=== PATIENT | male | born 1955 | race Caucasian/White ===

== ENCOUNTER 2016-07-18 11:02 | Day surgery (SDC) | payer BC ==
[2016-07-18] MEDS ORDERED: Betamethasone Acetate/Betamethasone Sod Phosphate 30 MG/5 ML MDV ONE (11:54)
[2016-07-18] MEDS ORDERED: Ropivacaine 0.5% 5 MG/ML 30 ML SDV ONE (11:55)
[2016-07-18] MEDS ORDERED: Iopamidol 408 MG/ML 50 ML SDV ONE (11:55)
[2016-07-18] MEDS ORDERED: Lidocaine 2% 5 ML SDV ONE (11:55)
--- NOTE | 2016-07-18 15:12 | OR ---
SURGEON: Becca Lopez D.O. DATE OF PROCEDURE: 07/18/2016 OR STAFF PRESENT: 1. Fawn Mooney RN. 2. Soniya Oliver RN. RESIDENCY COORDINATOR: Katie Osorio. WOUND CLASSIFICATION: I. PREOPERATIVE DIAGNOSES: 1. Failed back surgery syndrome. 2. Chronic low back pain. POSTOPERATIVE DIAGNOSES: 1. Failed back surgery syndrome. 2. Chronic low back pain. PROCEDURE PERFORMED: 1. Caudal epidural steroid injection. 2. Fluoroscopic guidance for needle placement. 3. Local with oral Valium for sedation. SCREENING QUESTIONS: The patient answered "no" to all of the following questions: 1. Are you allergic to latex? 2. Do you have a bleeding disorder? 3. Do you have any current local or systemic infections? 4. Are you taking any anti-inflammatories or blood thinners? 5. Do you have any joint replacements, heart valve replacements, or a pacemaker? DESCRIPTION OF PROCEDURE: The patient had the procedure thoroughly explained including all possible risks, benefits and alternatives. Consent was signed in my clinic indicating understanding and willingness to proceed. The patient presented to [facility] and was escorted to the dressing room to disrobe and change into a hospital gown. Preoperative vital signs were taken and stable. The patient reported that Valium was taken prior to the procedure. The patient was brought back to the procedure room and placed in the prone position on the procedure room table. A pillow was placed under the hips in order to flatten the lumbar lordosis. The back was prepped with ChloraPrep and sterilely draped. All personnel in the operating room were dressed in appropriate attire including surgical scrubs, head and shoe covers. This was to ensure sterility while in the treatment room. During the time fluoroscopy was in use, all personnel in the operating room wore lead christiansen with thyroid collars. Sterile technique was used throughout the procedure. The patient was awake and conversant throughout the procedure. There was no evidence of infection at the site of needle insertion. Skeletal landmarks were identified under fluoroscopy for the caudal epidural. Skin was anesthetized with 2% lidocaine with a sterile 27-gauge 1.5 inch needle. Then a 20-gauge Tuohy epidural needle was placed in the epidural space with loss of resistance technique under fluoroscopic guidance. No heme, cerebrospinal fluid, or paresthesias were noted. Isovue-200 contrast dye was injected in 0.2 cubic centimeter increments and seen to outline the epidural space in both AP and lateral views. There was no intravascular flow pattern observed under live fluoroscopy. Then 12 milligrams of Celestone was slowly injected after negative aspiration. The patient tolerated the procedure well. Vital signs were stable during and after the procedure. The staff escorted the patient to the recovery area and the patient was released in stable condition after a brief stay in the recovery room monitored by the nurse. The patient was given both oral and written discharge and follow up instructions with recommendation to follow up given for 2-3 weeks. The patient voiced understanding including understanding of those signs and symptoms that would require emergency care. The patient knows how to contact the office if there are any additional problems or questions in the meantime. PREOPERATIVE PAIN: 6/10. POSTOPERATIVE PAIN: 0/10. FOLLOWUP: Followup in the Pain Clinic in 3 weeks. LING / SULTANA /[id number] BRETT
== END 2016-07-18 13:25 | disposition home or self-care (01) ==
LOC: MW.SDS 11:02
PROVIDERS: ATTEND Anesthesiology
DX: G89.29 Other chronic pain (principal); M54.5 Low back pain; M96.1 Postlaminectomy syndrome, not elsewhere classified; Z88.0 Allergy status to penicillin; Z88.1 Allergy status to other antibiotic agents; I10 Essential (primary) hypertension; E78.00 Pure hypercholesterolemia, unspecified; E78.5 Hyperlipidemia, unspecified; F41.9 Anxiety disorder, unspecified; Z79.899 Other long term (current) drug therapy; Z79.82 Long term (current) use of aspirin; Z98.890 Other specified postprocedural states; Z87.891 Personal history of nicotine dependence
CPT/HCPCS: 62323; J0702; Q9966; J2795

== ENCOUNTER → 2016-08-08 | Outpatient (CLI) | payer BC | LOC: MW.CHPM 09:47 | PROVIDERS: ATTEND Anesthesiology | DX: Z51.81 Encounter for therapeutic drug level monitoring (principal); Z79.891 Long term (current) use of opiate analgesic | CPT/HCPCS: 80305 ==

== ENCOUNTER → 2016-08-29 | Outpatient (CLI) | payer BC ==
--- NOTE | 2016-08-29 11:55 | CR ---
EXAMINATION: Lumbar spine HISTORY: Low back pain COMPARISON: MRI dated 05/08/2013 TECHNIQUE: AP, lateral, flexion and extension. FINDINGS: Bilateral posterior fusion hardware noted at L5-S1. The lumbar spinal alignment is otherwi se normal. The vertebral body heights and disc spaces appear well-maintained. There is no fracture o r dislocation. Bone mineralization appears normal. The SI joints are symmetric. Alignment and range of motion appear near normal with flexion and extension. IMPRESSION: Postsurgical changes noted within the lower lumbar spine without acute findings.
== END ==
LOC: MW.DI 08:50
PROVIDERS: ATTEND Neurological Surgery
DX: M54.5 Low back pain (principal); Z98.890 Other specified postprocedural states
CPT/HCPCS: 72110; 72110-26

== ENCOUNTER → 2016-08-29 | Outpatient (CLI) | payer BC ==
[~2016-08-29] MED LIST: Iopamidol 408 MG/ML 20 ML SDV IV STA
--- NOTE | 2016-08-29 12:04 | CR ---
EXAMINATION: Lumbar myelogram HISTORY: Low back pain COMPARISON: Radiographs from the same day TECHNIQUE: The procedure, risks, and benefits were discussed with the patient. Risks included bleedi ng, infection, seizure, and headache. Consent was obtained. Patient was placed prone on the fluorosc opic table. The lower back was sterilely prepped and draped. 1% lidocaine was administered for local anesthesia. Using fluoroscopic guidance a 22-gauge Sprott needle was advanced at L2-L3 and tail CSF return was noted. 12 mL of Isovue-200 M was injected. Contrast was noted within the thecal sac. FINDINGS: There is mild narrowing of the thecal sac at L3-L4 and L4-L5. Please see CT report for ful l findings. IMPRESSION: Successful lumbar myelogram.
--- NOTE | 2016-08-29 14:39 | CT ---
EXAMINATION: CT lumbar myelogram HISTORY: Pain COMPARISON: MRI dated 05/08/2013 TECHNIQUE: Axial CT images obtained through the lumbar spine following the intrathecal administratio n of Isovue 200 M. Coronal and sagittal reconstructions obtained. FINDINGS: The lumbar spinal alignment is normal. The vertebral body heights appear well maintained. Mild disc space narrowing is noted at L5-S1 with bilateral posterior fusion. Early osseous interbody bridging is noted. Small diffuse anterior extradural defects are noted at L3-L4 and L4-L5. Mild to moderate spinal canal stenosis is noted at L2-L3, L3-L4, L4-L5 which appears predominantly secondary to facet and ligamentum flavum hypertrophy. The SI joints are symmetric. No fracture or acute osseo us abnormality. Bone mineralization appears normal. The visualized retroperitoneal structures appear normal. IMPRESSION: 1. Bilateral posterior fusion at L5-S1. 2. Multilevel degenerative changes noted within the lumbar spine most prominent from L2 to L5 result ing in [id number] spinal canal stenosis predominantly secondary to ligamentum flavum and facet hypertrophy.
== END | disposition home or self-care (01) ==
LOC: MW.DI 08:44
PROVIDERS: ATTEND Anesthesiology
DX: M96.1 Postlaminectomy syndrome, not elsewhere classified (principal); M51.9 Unspecified thoracic, thoracolumbar and lumbosacral intervertebral disc disorder; M54.17 Radiculopathy, lumbosacral region; G89.29 Other chronic pain; M54.5 Low back pain; M51.36 Other intervertebral disc degeneration, lumbar region; M48.06 Spinal stenosis, lumbar region; Z98.890 Other specified postprocedural states
CPT/HCPCS: 62284; 72110; 72132; 72265; Q9966

== ENCOUNTER → 2016-09-14 | Outpatient (CLI) | payer BC ==
--- NOTE | 2016-09-14 14:48 | XA ---
Exam Date: 09/14/16 Patient's Age: 61 HEIGHT: 73.0 in WEIGHT: 205.0 lbs INDICATIONS: Back Pain FRACTURES: Adult Fractures Only, Back Surgery TREATMENTS: Methotrexate ASSESSMENT: The BMD measured at Femur Neck Mean is 0.690 g/cm2 with a T-score of -2.9 is low. Fracture risk is high. A followup DXA test is recommended in one year to monitor response to therapy. The BMD measured at Femur Troch Mean is 0.614 g/cm2 with a T-score of -2.9 is low. Fracture risk is high. A followup DXA test is recommended in one year to monitor response to therapy. RESULTS: Site Region Age Classification T-Score BMD AP Spine L1-L4 60.6 N/A -1.8 1.012 g/cm2 Dual Femur Neck Mean 60.6 N/A -2.9 0.690 g/cm2 Dual Femur Troch Mean 60.6 N/A -2.9 0.614 g/cm2 Dual Femur Total Mean 60.6 N/A -2.8 0.705 g/cm2 LT Forearm Radius 33% 60.6 N/A -0.6 0.944 g/cm2 World Health Organization - Criteria for post-menopausal, women: Normal: T-Score at or above -1 SD Osteopenia: T-Score between -1 and -2.5 SD Osteoporosis: T-Score at or below -2.5 SD RECOMMENDATION: Pharmacologic treatment recommendations & Initiate pharmacologic treatment: - In those with hip or vertebral (clinical or asymptomatic) fractures - In those with T -scores <-2.5 at the femoral neck, total hip, or lumbar spine by DXA - In postmenopausal women and men age 50 and older with low bone mass (T-score between -1.0 and -2.5, osteopenia) at the femoral neck, total hip, or lumbar spine by DXA and a 10-year hip fracture probability >3 % or a 10-year major osteoporosis-related fracture probability >20% based on the [place]-adapted WHO absolute fracture risk model (Fracture Risk Algorithm (FRAX); www. NOF.org and www.shef.ac.uk/FRAX) FOLLOW UP: People with diagnosed cases of osteoporosis or at high risk for fracture should have regular bone mineral density tests. For patients eligible for Medicare, routine testing is allowed once every 2 years. The testing frequency can be increased to 1 year for patients who have rapidly progressing disease, those who are reviewing or discontinuing medial therapy to restore bone mass, or have additional risk factors. People with diagnosed cases of osteoporosis or osteopenia should be regularly tested for bone mineral density. For patient eligible for Medicare, routine testing is allowed once every 2 years. The testing frequency can be increased to 1 year for patients who have rapidly progressing disease, or for those who are receiving medial therapy to restore bone mass. [facility] -- SANDRA Rosario [phone] - FAX: [phone] BRETT
== END ==
LOC: MW.DI 09:22
PROVIDERS: ATTEND Neurological Surgery
DX: M48.06 Spinal stenosis, lumbar region (principal)
CPT/HCPCS: 77080; 77080-26

== ENCOUNTER 2017-06-15 08:40 | Emergency (ER) | payer OTHER, BC ==
--- NOTE | 2017-06-15 09:18 | EDM.PDOC ---
ED HPI GENERAL MEDICAL PROBLEM - General Chief Complaint: Upper Extremity Injury/Pain Stated Complaint: LEFT ARM PAIN Time Seen by Provider: 06/15/17 09:07 - History of Present Illness INITIAL COMMENTS - FREE TEXT/NARRATIVE: HISTORY AND PHYSICAL: History of present illness: Patient is a 62-year-old white male presents status post fall which injured his left upper extremity has pain in his right shoulder and humerus. He denies any head or neck pain or trauma or other concern is strictly mechanical fall he denies chest pain palpitations nausea vomiting neurological symptoms or other concern Review of systems: As per history of present illness and below otherwise all systems reviewed and negative. Past medical history: As per history of present illness and as reviewed below otherwise noncontributory. Surgical history: As per history of present illness and as reviewed below otherwise noncontributory. Social history: No reported history of drug or alcohol abuse. Family history: As per history of present illness and as reviewed below otherwise noncontributory. Physical exam: HEENT: Atraumatic, normocephalic, pupils reactive, negative for conjunctival pallor or scleral icterus, mucous membranes moist, throat clear, neck supple, nontender, trachea midline. Lungs: Clear to auscultation, breath sounds equal bilaterally, chest nontender. Heart: S1S2, regular, negative for clicks, rubs, or JVD. Abdomen: Soft, nondistended, nontender. Negative for masses or hepatosplenomegaly. Negative for costovertebral tenderness. Pelvis: Stable nontender. Genitourinary: Deferred. Rectal: Deferred. Extremities: Patient has tenderness in the region of his proximal left humerus is no gross deformity he has limited range of motion secondary to pain CMS in neurovascular exam is unremarkable Neuro: Awake, alert, oriented. Cranial nerves II through XII unremarkable. Cerebellum unremarkable. Motor and sensory unremarkable throughout. Exam nonfocal. Diagnostics: X-ray left shoulder/humerus Therapeutics: to Be determined Impression: #1 observation status post fall #2 acute injury left upper extremity Definitive disposition and diagnosis as appropriate pending reevaluation and review of above. Left Upper Arm Pain Score (Numeric/FACES): 6 - Related Data Allergies Allergy/AdvReac Type Severity Reaction Status Date / Time Penicillins Allergy Mild Hives Verified 03/16/16 12:09 vancomycin Allergy Rash Verified 03/25/16 18:35 Home Meds: Home Meds Ascorbic Acid/Bioflavonoids [Vit C-Bioflavonoids SA] 1,000 mg PO DAILY 03/16/16 [History] Aspirin [Adult Low Dose Aspirin EC] 1 tab PO DAILY 03/16/16 [History] ClonazePAM [KlonoPIN] 1.5 tab PO BEDTIME MDD 2 mg 03/16/16 [History] Fish Oil/DHA/EPA [Fish Oil 1,200 MG] 1 cap PO BID 03/16/16 [History] Folic Acid 1 cap PO BID 03/16/16 [History] Lisinopril 1 tab PO DAILY 03/16/16 [History] Melatonin/Pyridoxine HCl (B6) [Melatonin 10 mg Tablet] 2 tab PO BEDTIME [History] Pravastatin Sodium [Pravachol] 1 tab PO BEDTIME 03/16/16 [History] Vit D3 & K/Berberine HCl/Hops [Ostera] 600 intnl unit PO TID 03/16/16 [History] Vit E/Cu/Krystin/Zinc/Pygeum/Saw P [Prostamen Softgel] 400 intnl unit PO TID [History] amLODIPine Besylate [Amlodipine Besylate] 1 tab PO DAILY 03/16/16 [History] traMADol HCl [Tramadol HCl] 1 - 2 tab PO Q6H PRN 03/16/16 [History] Acetaminophen/oxyCODONE [Percocet 325-5 MG] 2 tab PO Q4H PRN #60 tablet [Rx] ClonazePAM [KlonoPIN] 1 mg PO BEDTIME tablet 03/19/16 [Rx] Lisinopril [Prinivil] 20 mg PO DAILY tablet 03/19/16 [Rx] Polyethylene Glycol 3350 [MiraLAX] 17 gm PO DAILY #30 packet 03/19/16 [Rx] diphenhydrAMINE HCl [Sleep Aid] 2 tab PO BEDTIME #30 capsule 03/19/16 [Rx] Hydrocodone/Acetaminophen [Hydrocodon-Acetaminophen 5-325] 06/15/17 [History] Methotrexate Sodium/PF [Methotrexate 1 gm Vial] 06/15/17 [History] Past Medical History HEENT History: Reports: Hard of Hearing, Other (See Below) Other HEENT History: wears glasses, has bilateral hearing aides; chronic dry sinuses Cardiovascular History: Reports: Blood Clots/VTE/DVT, High Cholesterol, Hypertension Other Cardiovascular History: hx of blood clot left calf after hip surgery 30 years ago Respiratory History: Reports: None Gastrointestinal History: Reports: None Genitourinary History: Reports: None Musculoskeletal History: Reports: Back Pain, Chronic, Fracture, RA, Other (See Below) Other Musculoskeletal History: hx of fx left femur, left hip, left foot, both hands Neurological History: Reports: Other (See Below) Other Neuro History: degenerative disc disease, chronic back pain Psychiatric History: Reports: Anxiety Endocrine/Metabolic History: Reports: None Hematologic History: Reports: None Immunologic History: Reports: None Oncologic (Cancer) History: Reports: None Dermatologic History: Reports: Psoriasis - Infectious Disease History Infectious Disease History: Reports: Measles, MRSA, Mumps - Past Surgical History Male Surgical History: Reports: Other (See Below) Neurological Surgical History: Reports: Spinal Fusion Social & Family History - Family History Respiratory: Reports: Asthma, COPD Endocrine/Metabolic: Reports: Diabetes, Type I Oncologic: Reports: Colon - Tobacco Use Smoking Status *Q: Former Smoker - Caffeine Use Caffeine Use: Reports: Coffee, Soda - Recreational Drug Use Recreational Drug Use: No Drug Use in Last 12 Months: No Review of Systems - Review of Systems Review Of Systems: ROS reveals no pertinent complaints other than HPI. ED EXAM, GENERAL - Physical Exam Exam: See Below (See dictation) Course - Vital Signs Text/Narrative:: I discussed case with Dr. Small orthopedic surgery at [facility] I reviewed radiographic findings including the olecranon fracture and a comminuted midshaft humerus fracture Dr. Small agreed with the concerns of a floating elbow and that more prompt follow-up with him was appropriate he states he'll see him on Sunday a sugar tong and posterior mold was applied and check status post application by myself with good stability and normal neurovascular exam. Impression remains comminuted midshaft humerus fracture and left olecranon fracture patient is to keep scheduled appointment he will be prescribed hydrocodone for pain he is to return as needed as discussed for any neurovascular or other symptoms including pain. Last Recorded V/S: Last Vital Signs Temp 36.3 C 06/15/17 09:15 Pulse 80 06/15/17 09:15 Resp 16 06/15/17 09:15 BP 140/82 06/15/17 09:15 Pulse Ox 94 L 06/15/17 09:15 Departure - Departure Time of Disposition: 11:11 Disposition: Home, Self-Care 01 Condition: Good Clinical Impression: Humerus shaft fracture, Olecranon fracture - Discharge Information Referrals: Akbar Wallace MD [Primary Care Provider] - Forms: ED Department Discharge Additional Instructions: The following information is given to patients seen in the emergency department who are being discharged to home. This information is to outline your options for follow-up care. We provide all patients seen in our emergency department with a follow-up referral. The need for follow-up, as well as the timing and circumstances, are variable depending upon the specifics of your emergency department visit. If you don't have a primary care physician on staff, we will provide you with a referral. We always advise you to contact your personal physician following an emergency department visit to inform them of the circumstance of the visit and for follow-up with them and/or the need for any referrals to a consulting specialist. The emergency department will also refer you to a specialist when appropriate. This referral assures that you have the opportunity for followup care with a specialist. All of these measure are taken in an effort to provide you with optimal care, which includes your followup. Under all circumstances we always encourage you to contact your private physician who remains a resource for coordinating your care. When calling for followup care, please make the office aware that this follow-up is from your recent emergency room visit. If for any reason you are refused follow-up, please contact the [facility] emergency department at and asked to speak to the emergency department charge nurse. Follow-up with orthopedic surgery Dr. Small [facility] hydrocodone as prescribed splint as directed sling as directed and return as needed as discussed
[2017-06-15 09:19] VITALS: BP 140/82
--- NOTE | 2017-06-15 09:55 | CR ---
EXAMINATION: Left shoulder and left humerus HISTORY: Pain COMPARISON: None TECHNIQUE: 2 views of the left shoulder and 2 views of the left humerus. FINDINGS: There is mildly comminuted and displaced angulated mid left humerus fracture identified at the level of the deltoid tuberosity. Mild degenerative changes noted within the glenohumeral and acromioclavicu lar joints. There is a mildly displaced oblique fracture through the olecranon of the left ulna extending to the trochlear notch. Underlying joint effusion. Bone mineralization is otherwise normal. IMPRESSION: 1. Angulated mildly comminuted and displaced mid left humerus fracture. 2. Minimally displaced left olecranon fracture.
== END 2017-06-15 11:40 | disposition home or self-care (01) ==
LOC: MW.ED 08:40
DX: S42.352A Displaced comminuted fracture of shaft of humerus, left arm, initial encounter for closed fracture (principal); S52.022A Displaced fracture of olecranon process without intraarticular extension of left ulna, initial encounter for closed fracture; I10 Essential (primary) hypertension; E78.00 Pure hypercholesterolemia, unspecified; F41.9 Anxiety disorder, unspecified; Z87.891 Personal history of nicotine dependence; Z79.82 Long term (current) use of aspirin; Z79.899 Other long term (current) drug therapy; Z88.0 Allergy status to penicillin; Z88.1 Allergy status to other antibiotic agents; W19.XXXA Unspecified fall, initial encounter
CPT/HCPCS: 29105; 73030-26-LT; 73030-LT; 73060-26-LT; 73060-LT; 99283

== ENCOUNTER 2019-03-30 08:49 | Inpatient (IN) | payer OTHER, BC ==
--- NOTE | 2019-03-30 08:58 | EDM.PDOC ---
ED HPI GENERAL MEDICAL PROBLEM - General Chief Complaint: Lower Extremity Injury/Pain Stated Complaint: POSSIBLE BROKEN LEFT HIP Time Seen by Provider: 03/30/19 08:56 - History of Present Illness INITIAL COMMENTS - FREE TEXT/NARRATIVE: HISTORY AND PHYSICAL: History of present illness: Patient 64-year-old white male presents status post fall which injured his left hip he denies any other pain or trauma he denies head or neck pain or trauma denies chest pain shortness of breath states he slipped on the ice and this was strictly a mechanical fall. Review of systems: As per history of present illness and below otherwise all systems reviewed and negative. Past medical history: As per history of present illness and as reviewed below otherwise noncontributory. Surgical history: As per history of present illness and as reviewed below otherwise noncontributory. Social history: No reported history of drug or alcohol abuse. Family history: As per history of present illness and as reviewed below otherwise noncontributory. Physical exam: HEENT: Atraumatic, normocephalic, pupils reactive, negative for conjunctival pallor or scleral icterus, mucous membranes moist, throat clear, neck supple, nontender, trachea midline. Lungs: Clear to auscultation, breath sounds equal bilaterally, chest nontender. Heart: S1S2, regular, negative for clicks, rubs, or JVD. Abdomen: Soft, nondistended, nontender. Negative for masses or hepatosplenomegaly. Negative for costovertebral tenderness. Pelvis: Stable Genitourinary: Deferred. Rectal: Deferred. Extremities: Patient has tenderness palpation of his left hip is limited range of motion secondary to pain pelvis is grossly stable Neuro: Awake, alert, oriented. Cranial nerves II through XII unremarkable. Cerebellum unremarkable. Motor and sensory unremarkable throughout. Exam nonfocal. Diagnostics: X-ray pelvis with left hip Therapeutics: To be determined Impression: #1 observation status post fall with acute left hip injury Definitive disposition and diagnosis as appropriate pending reevaluation and review of above. Left Hip Pain Score (Numeric/FACES): 9 - Related Data Allergies Allergy/AdvReac Type Severity Reaction Status Date / Time Penicillins Allergy Rash Verified 03/30/19 08:51 Review of Systems - Review of Systems Review Of Systems: Comprehensive ROS is negative, except as noted in HPI. ED EXAM, GENERAL - Physical Exam Exam: See Below (See dictation) Course - Vital Signs Last Recorded V/S: Last Vital Signs Temp 35.9 C 03/30/19 08:51 Pulse 97 03/30/19 08:51 Resp 17 03/30/19 08:51 BP 152/75 H 03/30/19 08:51 Pulse Ox 98 03/30/19 08:51 - Orders/Labs/Meds Orders: Active Orders 24 hr Category Date Time Status EKG 12 Lead [EKG Documentation Completion] [RC] STAT Care 03/30/19 10:02 Active CBC WITH AUTO DIFF [HEME] Stat Lab 03/30/19 10:02 Ordered COMPREHENSIVE METABOLIC PN,CMP [CHEM] Stat Lab 03/30/19 10:02 Ordered INR,PT,PROTHROMBIN TIME [COAG] Stat Lab 03/30/19 10:02 Ordered Sodium Chloride 0.9% [Saline Flush] Med 03/30/19 09:05 Active 10 ml FLUSH ASDIRECTED PRN Sodium Chloride 0.9% [Saline Flush] Med 03/30/19 09:05 Active 2.5 ml FLUSH ASDIRECTED PRN Saline Lock Insert [OM.PC] Stat Oth 03/30/19 09:05 Ordered Medication Orders Sodium Chloride (Saline Flush) 10 ml FLUSH ASDIRECTED PRN PRN Reason: Keep Vein Open Last Admin: 03/30/19 09:10 Dose: 10 ml Sodium Chloride (Saline Flush) 2.5 ml FLUSH ASDIRECTED PRN PRN Reason: Keep Vein Open Last Admin: 03/30/19 09:10 Dose: 2.5 ml Meds: Medications Generic Name Dose Route Start Last Admin Trade Name Freq PRN Reason Stop Dose Admin Sodium Chloride 10 ml 03/30/19 09:05 03/30/19 09:10 Saline Flush FLUSH 10 ml ASDIRECTED PRN Administration Keep Vein Open Sodium Chloride 2.5 ml 03/30/19 09:05 03/30/19 09:10 Saline Flush FLUSH 2.5 ml ASDIRECTED PRN Administration Keep Vein Open Discontinued Medications Generic Name Dose Route Start Last Admin Trade Name Freq PRN Reason Stop Dose Admin Morphine Sulfate 4 mg 03/30/19 09:05 03/30/19 09:09 Morphine IVPUSH 03/30/19 09:06 4 mg ONETIME ONE Administration Ondansetron HCl 4 mg 03/30/19 09:04 03/30/19 09:09 Zofran IVPUSH 03/30/19 09:05 4 mg ONETIME ONE Administration Departure - Departure Time of Disposition: 10:04 Disposition: Admitted As Inpatient 67 Condition: Good Clinical Impression: Hip fracture, Hip fracture - Discharge Information Forms: ED Department Discharge - My Orders Last 24 Hours: My Active Orders 03/30/19 09:05 Sodium Chloride 0.9% [Saline Flush] 10 ml FLUSH ASDIRECTED PRN Sodium Chloride 0.9% [Saline Flush] 2.5 ml FLUSH ASDIRECTED PRN Saline Lock Insert [OM.PC] Stat 03/30/19 10:02 EKG 12 Lead [EKG Documentation Completion] [RC] STAT CBC WITH AUTO DIFF [HEME] Stat COMPREHENSIVE METABOLIC PN,CMP [CHEM] Stat INR,PT,PROTHROMBIN TIME [COAG] Stat - Assessment/Plan Last 24 Hours: My Active Orders 03/30/19 09:05 Sodium Chloride 0.9% [Saline Flush] 10 ml FLUSH ASDIRECTED PRN Sodium Chloride 0.9% [Saline Flush] 2.5 ml FLUSH ASDIRECTED PRN Saline Lock Insert [OM.PC] Stat 03/30/19 10:02 EKG 12 Lead [EKG Documentation Completion] [RC] STAT CBC WITH AUTO DIFF [HEME] Stat COMPREHENSIVE METABOLIC PN,CMP [CHEM] Stat INR,PT,PROTHROMBIN TIME [COAG] Stat
[2019-03-30] MEDS ORDERED: Ondansetron 4 MG/2 ML SDV IVPUSH ONE (09:04)
[2019-03-30] MEDS ORDERED: Sodium Chloride 0.9% 2.5 ML Syringe FLUSH PRN (09:05)
[2019-03-30] MEDS ORDERED: Morphine 4 MG/ML Syringe IVPUSH ONE (09:05)
[2019-03-30] MEDS ORDERED: Sodium Chloride 0.9% 10 ML Syringe FLUSH PRN (09:05)
--- NOTE | 2019-03-30 09:31 | CR ---
INDICATION: Fall. Left hip pain Technique : AP pelvis and two views left hip Finding : Mild to moderately displaced and angulated acute fracture involving the left distal femoral neck and intertrochanteric proximal femur with extension of the fracture into the subtrochanteric left proximal femoral diaphysis laterally. Moderately prominent soft tissue swelling left lateral hip and lower pelvis. No other evidence for fracture or dislocation pelvis or hips. Amrit and pedicle screw fixation posteriorly from L5-S1. Mild degenerative change left hip. Degenerative and hypertrophic changes involving the lower lumbar spine. Small benign area of sclerosis or increased density projected over right femur. Remainder negative. Dictated by Miguel Parra MD @ Mar 30 2019 9:26AM Signed by Dr. Miguel Parra @ Mar 30 2019 9:28AM
[2019-03-30] MEDS ORDERED: HYDROmorphone 1 MG/ML Syringe IV ONE (10:05)
[2019-03-30 10:48] LABS: BLOOD UREA NITROGEN,BUN 17 mg/dL (7.0-18.0); CARBON DIOXIDE,CO2 29.6 mmol/L (21.0-32.0); CHLORIDE,CL 103 mmol/L (98-107); GLUCOSE RANDOM 115 mg/dL (74-106); POTASSIUM,K 3.2 mmol/L (3.5-5.1); SODIUM,NA 140 mmol/L (136-148)
[2019-03-30] MEDS ORDERED: Acetaminophen/HYDROcodone 325-5 MG Tab PO PRN (11:23)
[2019-03-30] MEDS ORDERED: Tranexamic Acid 2,000 MG in Sodium Chloride 0.9% 100 ML IV ONE (11:28)
[2019-03-30] MEDS ORDERED: Ondansetron 4 MG Tab PO PRN (11:28)
[2019-03-30] MEDS ORDERED: Docusate Sodium 100 MG Cap PO PRN (11:28)
[2019-03-30] MEDS ORDERED: Ketorolac 15 MG/ML SDV IVPUSH SCH (11:30)
[2019-03-30] MEDS ORDERED: Scopolamine 1.5 MG Transdermal Patch TRDERM SCH (11:30)
[2019-03-30] MEDS ORDERED: Famotidine 20 MG/2 ML SDV IVPUSH SCH (11:30)
[2019-03-30] MEDS ORDERED: Clindamycin Phosphate in D5W 600 MG in Premix Bag 1 BAG IV SCH ×2 (11:30)
[2019-03-30] MEDS ORDERED: Ropivacaine 49.25 ML, Ketorolac 30 MG, EPINEPHrine 0.5 MG in Sodium Chloride 0.9% 23.45 ML INJECT SCH (11:30)
[2019-03-30] MEDS ORDERED: Famotidine 40 MG in Sodium Chloride 0.9% 6 ML IV ONE (11:45)
[2019-03-30] MEDS ORDERED: HYDROmorphone 1 MG/ML Syringe IVPUSH ONE ×2 (12:09→14:04)
--- NOTE | 2019-03-30 12:57 | CR ---
Indication: Preop surgery. Technique: AP view of the chest. Comparison: None Findings: Heart is borderline in size. The lungs are clear. No infiltrate, pleural effusion, or pneumothorax is identified. Impression: Borderline cardiomegaly Dictated by Gita Reyes MD @ Mar 30 2019 12:54PM Signed by Dr. Gita Reyes @ Mar 30 2019 12:55PM
--- NOTE | 2019-03-30 13:14 | PCM.HP.2 ---
H&P History of Present Illness - General Date of Service: 03/30/19 Admit Problem/Dx: Admission Diagnosis/Problem Admission Diagnosis/Problem Hip fracture requiring operative repair Source of Information: Patient, Provider, RN History Limitations: Reports: No Limitations - History of Present Illness Onset of Symptoms: Reports: Today, Sudden Symptom Onset Date: 03/30/19 Duration of Symptoms: Reports: Hour(s): Location: Reports: Lower Extremity, Left Quality: Reports: Ache, Stabbing, Throbbing Severity: Moderate Improves with: Reports: None, Immobilization Worsens with: Reports: None, Movement Associated Symptoms: Reports: No Other Symptoms Left Hip Pain Score (Numeric/FACES): 9 - Related Data Allergies/Adverse Reactions: Allergies Allergy/AdvReac Type Severity Reaction Status Date / Time Penicillins Allergy Rash Verified 03/30/19 08:51 Past Medical History Cardiovascular History: Reports: High Cholesterol, Hypertension - Infectious Disease History Infectious Disease History: Reports: None - Past Surgical History GI Surgical History: Reports: Hernia, Abdominal Other Musculoskeletal Surgeries/Procedures:: Back surgery. Left hip surgery Social & Family History - Family History Family Medical History: Noncontributory - Tobacco Use Smoking Status *Q: Never Smoker - Caffeine Use Caffeine Use: Reports: None - Recreational Drug Use Recreational Drug Use: No H&P Review of Systems - Review of Systems: Review Of Systems: See Below General: Reports: No Symptoms HEENT: Reports: No Symptoms Pulmonary: Reports: No Symptoms Cardiovascular: Reports: No Symptoms Gastrointestinal: Reports: No Symptoms Genitourinary: Reports: No Symptoms Musculoskeletal: Reports: Leg Pain, Joint Pain, Joint Swelling, Muscle Pain Skin: Reports: No Symptoms Psychiatric: Reports: No Symptoms Neurological: Reports: No Symptoms Hematologic/Lymphatic: Reports: No Symptoms Immunologic: Reports: No Symptoms Exam - Exam Exam: See Below - Vital Signs Vital Signs: Last Vital Signs Temp 35.9 C 03/30/19 08:51 Pulse 98 03/30/19 12:28 Resp 16 03/30/19 12:28 BP 125/83 03/30/19 12:28 Pulse Ox 94 L 03/30/19 12:28 Weight: 99.79 kg - Exam General: Alert, Oriented, Cooperative, Mild Distress HEENT: Conjunctiva Clear, EOMI, Hearing Intact, Mucosa Moist & [place], Posterior Pharynx Clear, Pupils Equal, Pupils Reactive Neck: Supple, Trachea Midline Lungs: Clear to Auscultation, Normal Respiratory Effort Cardiovascular: Regular Rate, Regular Rhythm GI/Abdominal Exam: No Distention Extremities: Slow Capillary Refill, Leg Pain Peripheral Pulses: 2+: Dorsalis Pedis (L) Skin: Warm, Dry, Intact Neurological: Cranial Nerves Intact Neuro Extensive - Mental Status: Alert, Oriented x3, Normal Mood/Affect, Normal Cognition, Memory Intact Neuro Extensive - Motor, Sensory, Reflexes: CN II-XII Intact Psychiatric: Alert, Normal Affect, Normal Mood - Patient Data Lab Results Last 24 hrs: Laboratory Results - last 24 hr 03/30/19 03/30/19 03/30/19 Range/Units 10:15 10:15 10:15 WBC 13.12 H (4.0-11.0) K/uL RBC 4.54 (4.50-5.90) M/uL Hgb 14.6 (13.0-17.0) g/dL Hct 41.4 (38.0-50.0) % MCV 91.2 (80.0-98.0) fL MCH 32.2 H (27.0-32.0) pg MCHC 35.3 (31.0-37.0) g/dL RDW Std Deviation 48.4 (28.0-62.0) fl RDW Coeff of Kalyn 15 (11.0-15.0) % Plt Count 262 (150-400) K/uL MPV 9.50 (7.40-12.00) fL Neut % (Auto) 80.6 H (48.0-80.0) % Lymph % (Auto) 8.7 L (16.0-40.0) % [place] % (Auto) 8.4 (0.0-15.0) % Eos % (Auto) 1.8 (0.0-7.0) % Baso % (Auto) 0.5 (0.0-1.5) % Neut # (Auto) 10.6 H (1.4-5.7) K/uL Lymph # (Auto) 1.1 (0.6-2.4) K/uL [place] # (Auto) 1.1 H (0.0-0.8) K/uL Eos # (Auto) 0.2 (0.0-0.7) K/uL Baso # (Auto) 0.1 (0.0-0.1) K/uL Nucleated RBC % 0.0 /100WBC Nucleated RBCs # 0 K/uL INR 0.97 Sodium 140 (136-148) mmol/L Potassium 3.2 L (3.5-5.1) mmol/L Chloride 103 (98-107) mmol/L Carbon Dioxide 29.6 (21.0-32.0) mmol/L BUN 17 (7.0-18.0) mg/dL Creatinine 1.0 (0.8-1.3) mg/dL Est Cr Clr Drug Dosing 85.45 mL/min Estimated GFR (MDRD) > 60.0 ml/min Glucose 115 H (74-106) mg/dL Calcium 9.2 (8.5-10.1) mg/dL Total Bilirubin 0.4 (0.2-1.0) mg/dL AST 24 (15-37) IU/L ALT 42 (14-63) IU/L Alkaline Phosphatase 61 (46-116) U/L Total Protein 7.3 (6.4-8.2) g/dL Albumin 4.1 (3.4-5.0) g/dL Globulin 3.2 (2.6-4.0) g/dL Albumin/Globulin Ratio 1.3 (0.9-1.6) Result Diagrams: 03/30/19 10:15 03/30/19 10:15 - Problem List (1) Fracture, intertrochanteric, left femur SNOMED Code(s): 908927825 ICD Code: S72.142A - DISPLACED INTERTROCHANTERIC FRACTURE OF LEFT FEMUR, INIT Status: Acute Current Visit: Yes Qualifiers: Encounter type: initial encounter Fracture type: closed Fracture alignment: displaced Qualified Code(s): S72.142A - Displaced intertrochanteric fracture of left femur, initial encounter for closed fracture Problem List Initiated/Reviewed/Updated: Yes Orders Last 24hrs: Active Orders 24 hr Category Date Time Status Patient Status [ADT] Stat ADT 03/30/19 10:06 Active Antiembolic Devices [RC] PER UNIT ROUTINE Care 03/30/19 11:25 Active EKG 12 Lead [EKG Documentation Completion] [RC] STAT Care 03/30/19 10:02 Active Insert Urinary Catheter [OM.PC] Q24H Care 03/30/19 11:30 Ordered RT Incentive Spirometry [RC] Q1HWA Care 03/30/19 11:23 Active Urinary Catheter Assessment [RC] ASDIRECTED Care 03/30/19 11:26 Active Nothing Per Oral Diet [DIET] Diet 03/30/19 Lunch Active Nothing per Oral After Midnight Diet [DIET] Diet 03/30/19 Dinner Active TYPE AND SCREEN [BBK] Routine Lab 03/30/19 11:40 Received Acetaminophen/HYDROcodone [[place] 325-5 MG] Med 03/30/19 11:23 Active 1 - 2 tab PO Q4H PRN Clindamycin Phosphate in D5W [Cleocin in D5W] 600 mg Med 03/30/19 11:30 Active Premix Bag 1 bag IV ONCALL Docusate Sodium [Colace] Med 03/30/19 11:28 Active 100 mg PO BID PRN Ketorolac [Toradol] Med 03/30/19 11:30 Active 15 mg IVPUSH ONARRIVE Lactated Ringers [Ringers, Lactated] 1,000 ml Med 03/30/19 23:00 Active IV ASDIRECTED Ondansetron [Zofran] Med 03/30/19 11:28 Active 4 mg PO Q6H PRN Scopolamine [Transderm-Scop] Med 03/30/19 11:30 Active 1.5 mg TRDERM ONARRIVE Sodium Chloride 0.9% [Saline Flush] Med 03/30/19 09:05 Active 10 ml FLUSH ASDIRECTED PRN Sodium Chloride 0.9% [Saline Flush] Med 03/30/19 09:05 Active 2.5 ml FLUSH ASDIRECTED PRN Antiembolic Hose [OM.PC] Routine Oth 03/30/19 11:25 Ordered Obtain Home Medication List [OM.PC] Routine Oth 03/30/19 11:25 Ordered Saline Lock Insert [OM.PC] Stat Oth 03/30/19 09:05 Ordered Sequential Compression Device [OM.PC] Routine Oth 03/30/19 11:25 Ordered Code Status [Resuscitation Status] Routine Resus Stat 03/30/19 11:23 Ordered Medication Orders Hydrocodone Bitart/Acetaminophen ([place] 325-5 Mg) 1 - 2 tab PO Q4H PRN PRN Reason: Pain Docusate Sodium (Colace) 100 mg PO BID PRN PRN Reason: Constipation Clindamycin Phosphate 600 mg/ (Premix) 50 mls @ 92.593 mls/hr IV ONCALL [place] Lactated Ringer's (Ringers, Lactated) 1,000 mls @ 75 mls/hr IV ASDIRECTED [place] Ketorolac Tromethamine (Toradol) 15 mg IVPUSH ONARRIVE [place] Ondansetron HCl (Zofran) 4 mg PO Q6H PRN PRN Reason: Nausea/Vomiting Scopolamine (Transderm-Scop) 1.5 mg TRDERM ONARRIVE [facility] Sodium Chloride (Saline Flush) 10 ml FLUSH ASDIRECTED PRN PRN Reason: Keep Vein Open Last Admin: 03/30/19 09:10 Dose: 10 ml Sodium Chloride (Saline Flush) 2.5 ml FLUSH ASDIRECTED PRN PRN Reason: Keep Vein Open Last Admin: 03/30/19 09:10 Dose: 2.5 ml Assessment/Plan Comment:: P: to OR tomorrow for left cephalomedullary nail bryan today, remove after surgery npo after midnight - Mortality Measure Prognosis:: Good
[2019-03-30] MEDS ORDERED: Potassium Chloride 10% 20 MEQ/15 ML Soln 30 ML UD Cup PO ONE ×2 (13:16→16:00)
[2019-03-30] MEDS: Gabapentin 300 MG Cap PO SCH (21:27)
[2019-03-30] MEDS: Morphine 2 MG/ML Syringe IVPUSH PRN (21:28)
[2019-03-30] MEDS: Lactated Ringers 1,000 ML IV SCH (23:00)
[2019-03-31] MEDS: Morphine 2 MG/ML Syringe IVPUSH PRN ×3 (02:34→09:36)
[2019-03-31] MEDS: Gabapentin 300 MG Cap PO SCH ×3 (05:46→21:11)
[2019-03-31] MEDS ORDERED: Ropivacaine 49.25 ML, Ketorolac 30 MG, EPINEPHrine 0.5 MG in Sodium Chloride 0.9% 23.45 ML INJECT SCH (07:45)
--- NOTE | 2019-03-31 09:50 | PCM.PREANE ---
Preanesthetic Assessment - Procedure Proposed Procedure: ORIF L hip - Anesthesia/Transfusion/Family Hx Anesthesia History: Prior Anesthesia Without Reaction Family History of Anesthesia Reaction: No Transfusion History: No Prior Transfusion(s) Intubation History: Intubation other than for Surgery in past - Review of Systems General: No Symptoms Pulmonary: No Symptoms Cardiovascular: No Symptoms, Other (Rx'd for HTN and increased lipids) Gastrointestinal: Other (Takes Ranitidine for reflux. Well controlled.) Other: Reports: Depression - Physical Assessment NPO Status Date: 03/31/19 NPO Status Time: 01:00 Vital Signs: Last Vital Signs Temp 36.3 C 03/31/19 07:15 Pulse 93 03/31/19 07:15 Resp 16 03/31/19 07:15 BP 123/68 03/31/19 07:15 Pulse Ox 91 L 03/31/19 07:15 Height: 1.85 m Weight: 97.522 kg ASA Class: 3 Mental Status: Alert & Oriented x3 Dentition: Reports: Normal Dentition, Missing Tooth/Teeth Thyro-Mental Finger Breadths: 3 Mouth Opening Finger Breadths: 3 ROM/Head Extension: Full Lungs: Clear to Auscultation Cardiovascular: Regular Rate - Lab Values: Laboratory Last Values WBC 13.12 K/uL (4.0-11.0) H 03/30/19 10:15 RBC 4.54 M/uL (4.50-5.90) 03/30/19 10:15 Hgb 14.6 g/dL (13.0-17.0) 03/30/19 10:15 Hct 41.4 % (38.0-50.0) 03/30/19 10:15 MCV 91.2 fL (80.0-98.0) 03/30/19 10:15 MCH 32.2 pg (27.0-32.0) H 03/30/19 10:15 MCHC 35.3 g/dL (31.0-37.0) 03/30/19 10:15 RDW Std Deviation 48.4 fl (28.0-62.0) 03/30/19 10:15 RDW Coeff of Kalyn 15 % (11.0-15.0) 03/30/19 10:15 Plt Count 262 K/uL (150-400) 03/30/19 10:15 MPV 9.50 fL (7.40-12.00) 03/30/19 10:15 Neut % (Auto) 80.6 % (48.0-80.0) H 03/30/19 10:15 Lymph % (Auto) 8.7 % (16.0-40.0) L 03/30/19 10:15 [place] % (Auto) 8.4 % (0.0-15.0) 03/30/19 10:15 Eos % (Auto) 1.8 % (0.0-7.0) 03/30/19 10:15 Baso % (Auto) 0.5 % (0.0-1.5) 03/30/19 10:15 Neut # (Auto) 10.6 K/uL (1.4-5.7) H 03/30/19 10:15 Lymph # (Auto) 1.1 K/uL (0.6-2.4) 03/30/19 10:15 [place] # (Auto) 1.1 K/uL (0.0-0.8) H 03/30/19 10:15 Eos # (Auto) 0.2 K/uL (0.0-0.7) 03/30/19 10:15 Baso # (Auto) 0.1 K/uL (0.0-0.1) 03/30/19 10:15 Nucleated RBC % 0.0 /100WBC 03/30/19 10:15 Nucleated RBCs # 0 K/uL 03/30/19 10:15 INR 0.97 03/30/19 10:15 Sodium 140 mmol/L (136-148) 03/30/19 10:15 Potassium 3.2 mmol/L (3.5-5.1) L 03/30/19 10:15 Chloride 103 mmol/L (98-107) 03/30/19 10:15 Carbon Dioxide 29.6 mmol/L (21.0-32.0) 03/30/19 10:15 BUN 17 mg/dL (7.0-18.0) 03/30/19 10:15 Creatinine 1.0 mg/dL (0.8-1.3) 03/30/19 10:15 Est Cr Clr Drug Dosing 85.45 mL/min 03/30/19 10:15 Estimated GFR (MDRD) > 60.0 ml/min 03/30/19 10:15 Glucose 115 mg/dL (74-106) H 03/30/19 10:15 Calcium 9.2 mg/dL (8.5-10.1) 03/30/19 10:15 Total Bilirubin 0.4 mg/dL (0.2-1.0) 03/30/19 10:15 AST 24 IU/L (15-37) 03/30/19 10:15 ALT 42 IU/L (14-63) 03/30/19 10:15 Alkaline Phosphatase 61 U/L (46-116) 03/30/19 10:15 Total Protein 7.3 g/dL (6.4-8.2) 03/30/19 10:15 Albumin 4.1 g/dL (3.4-5.0) 03/30/19 10:15 Globulin 3.2 g/dL (2.6-4.0) 03/30/19 10:15 Albumin/Globulin Ratio 1.3 (0.9-1.6) 03/30/19 10:15 Blood Type O POSITIVE 03/30/19 11:40 Antibody Screen POSITIVE 03/30/19 11:40 Prewarmed Antibody Srcn NEGATIVE 03/30/19 11:40 Antibody Identification Cancelled 03/30/19 11:40 - Allergies Allergies/Adverse Reactions: Allergies Allergy/AdvReac Type Severity Reaction Status Date / Time Penicillins Allergy Rash Verified 03/30/19 16:04 - Blood Blood Available: No - Acknowledgements Anesthesia Type Planned: Spinal Pt an Appropriate Candidate for the Planned Anesthesia: Yes Alternatives and Risks of Anesthesia Discussed w Pt/Guardian: Yes Pt/Guardian Understands and Agrees with Anesthesia Plan: Yes Additional Comments: Chart reviewed. Discussed. History noted. No history of anesthesia problems in past. Plan on SAB, although GAET discussed. ? answered. Permit signed. Past smoker. None for years. DVT/Clot history in past. not currently being treated. PreAnesthesia Questionnaire HEENT History: Reports: None Cardiovascular History: Reports: Blood Clots/VTE/DVT, High Cholesterol, Hypertension Respiratory History: Reports: Asthma Genitourinary History: Reports: None Musculoskeletal History: Reports: Arthritis, Back Pain, Chronic, Fracture Neurological History: Reports: None Psychiatric History: Reports: Depression Endocrine/Metabolic History: Reports: None Hematologic History: Reports: None Oncologic (Cancer) History: Reports: None Dermatologic History: Reports: Eczema - Infectious Disease History Infectious Disease History: Reports: None - Past Surgical History HEENT Surgical History: Reports: None Cardiovascular Surgical History: Reports: None Respiratory Surgical History: Reports: None GI Surgical History: Reports: Hernia, Abdominal Male Surgical History: Reports: None Neurological Surgical History: Reports: None Other Musculoskeletal Surgeries/Procedures:: Back surgery. Left hip surgery Oncologic Surgical History: Reports: None - SUBSTANCE USE Smoking Status *Q: Former Smoker Tobacco Use Within Last Twelve Months: Cigarettes Recreational Drug Use History: No - HOME MEDS Home Medications: Home Meds Chlorthalidone 25 mg PO DAILY 03/31/19 [History] Lisinopril 40 mg PO DAILY 03/31/19 [History] Rosuvastatin Calcium 20 mg PO DAILY 03/31/19 [History] amLODIPine Besylate [Amlodipine Besylate] 10 mg PO DAILY 03/31/19 [History] raNITIdine HCl [Ranitidine HCl] 300 mg PO BID 03/31/19 [History] traMADol HCl [Tramadol HCl] 03/31/19 [History] - CURRENT (IN HOUSE) MEDS Current Meds: Current Medications Docusate Sodium (Colace) 100 mg PO BID PRN PRN Reason: Constipation Gabapentin (Neurontin) 300 mg PO TID [facility] Last Admin: 03/31/19 05:46 Dose: 300 mg Clindamycin Phosphate 600 mg/ (Premix) 50 mls @ 92.593 mls/hr IV ONCALL [facility] Lactated Ringer's (Ringers, Lactated) 1,000 mls @ 75 mls/hr IV ASDIRECTED [facility] Last Admin: 03/30/19 23:00 Dose: 75 mls/hr Ropivacaine 49.25 ml/Ketorolac Tromethamine 30 mg/Epinephrine HCl 0.5 mg/ Sodium Chloride 74.2 mls @ 50 mls/sec INJECT ASDIRECTED [facility] Ketorolac Tromethamine (Toradol) 15 mg IVPUSH ONARRIVE [facility] Morphine Sulfate (Morphine) 2 mg IVPUSH Q2H PRN PRN Reason: Pain Last Admin: 03/31/19 09:36 Dose: 2 mg Ondansetron HCl (Zofran) 4 mg PO Q6H PRN PRN Reason: Nausea/Vomiting Scopolamine (Transderm-Scop) 1.5 mg TRDERM ONARRIVE [place] Sodium Chloride (Saline Flush) 10 ml FLUSH ASDIRECTED PRN PRN Reason: Keep Vein Open Last Admin: 03/30/19 09:10 Dose: 10 ml Sodium Chloride (Saline Flush) 2.5 ml FLUSH ASDIRECTED PRN PRN Reason: Keep Vein Open Last Admin: 03/30/19 09:10 Dose: 2.5 ml Discontinued Medications Hydrocodone Bitart/Acetaminophen ([place] 325-5 Mg) 1 - 2 tab PO Q4H PRN PRN Reason: Pain Last Admin: 03/30/19 17:41 Dose: 2 tab Hydromorphone HCl (Dilaudid) 1 mg IV ONETIME ONE Stop: 03/30/19 10:06 Last Admin: 03/30/19 10:13 Dose: 1 mg Hydromorphone HCl (Dilaudid) 1 mg IVPUSH ONETIME ONE Stop: 03/30/19 12:10 Last Admin: 03/30/19 12:26 Dose: 1 mg Hydromorphone HCl (Dilaudid) 1 mg IVPUSH ONETIME ONE Stop: 03/30/19 14:05 Last Admin: 03/30/19 14:10 Dose: 1 mg Tranexamic Acid 2,000 mg/ (Sodium Chloride) 120 mls @ 360 mls/hr IV ASDIRECTED ONE Stop: 03/30/19 11:47 Ropivacaine 49.25 ml/Ketorolac Tromethamine 30 mg/Epinephrine HCl 0.5 mg/ Sodium Chloride 74.2 mls @ 50 mls/sec INJECT ASDIRECTED NILSON Stop: 03/30/19 11:31 Famotidine 40 mg/ Sodium (Chloride) 10 mls @ 300 mls/hr IV ONETIME ONE Stop: 03/30/19 11:46 Morphine Sulfate (Morphine) 4 mg IVPUSH ONETIME ONE Stop: 03/30/19 09:06 Last Admin: 03/30/19 09:09 Dose: 4 mg Ondansetron HCl (Zofran) 4 mg IVPUSH ONETIME ONE Stop: 03/30/19 09:05 Last Admin: 03/30/19 09:09 Dose: 4 mg Potassium Chloride (Potassium Chloride) 40 meq PO ONETIME ONE Stop: 03/30/19 13:17 Last Admin: 03/30/19 16:31 Dose: Not Given Potassium Chloride (Potassium Chloride) 40 meq PO ONETIME ONE Stop: 03/30/19 16:01 Last Admin: 03/30/19 17:37 Dose: 40 meq
[2019-03-31] MEDS ORDERED: Midazolam 1 MG/ML 2 ML SDV ONE (11:12)
[2019-03-31] MEDS ORDERED: Ondansetron 4 MG/2 ML SDV ONE (11:12)
[2019-03-31] MEDS ORDERED: fentaNYL 100 MCG/2 ML SDV ONE (11:12)
[2019-03-31] MEDS ORDERED: Propofol 200 MG/20 ML SDV ONE (11:12)
[2019-03-31] MEDS: Lactated Ringers 1,000 ML IV SCH (11:57)
[2019-03-31] MEDS ORDERED: Ketorolac 30 MG/ML SDV ONE (12:57)
[2019-03-31] MEDS ORDERED: HYDROmorphone 2 MG/ML Syringe ONE ×2 (12:59→14:50)
[2019-03-31] MEDS ORDERED: Sodium Chloride 0.9% 20 ML ONE (13:05)
[2019-03-31] MEDS ORDERED: ePHEDrine 50 MG/ML SDV ONE (13:05)
[2019-03-31] MEDS ORDERED: fentaNYL 50 MCG/ML SDV IVPUSH ONE (13:42)
[2019-03-31] MEDS ORDERED: Sugammadex Sodium 200 MG/2 ML VIAL ONE (14:08)
[2019-03-31] MEDS ORDERED: Bisacodyl 10 MG Supp RECTAL PRN (14:32)
[2019-03-31] MEDS ORDERED: diphenhydrAMINE 25 MG Cap PO PRN (14:32)
[2019-03-31] MEDS ORDERED: Ondansetron 4 MG/2 ML SDV IVPUSH PRN (14:32)
[2019-03-31] MEDS ORDERED: Sodium Chloride 0.9% 10 ML Syringe FLUSH PRN (14:32)
[2019-03-31] MEDS ORDERED: Sodium Chloride 0.9% 2.5 ML Syringe FLUSH PRN (14:32)
[2019-03-31] MEDS ORDERED: Docusate Sodium 100 MG Cap PO PRN (14:32)
[2019-03-31] MEDS ORDERED: Aluminum Hydroxide/Magnesium Hydroxide/Simethicone Susp 30 ML Cup PO PRN (14:32)
--- NOTE | 2019-03-31 14:35 | PCM.OPNOTE ---
- General Post-Op/Procedure Note Date of Surgery/Procedure: 03/31/19 Operative Procedure(s): cephallomedullary nail left hip Pre Op Diagnosis: left intertrochanteric fracture, closed Post-Op Diagnosis: Same Anesthesia Technique: General ET Tube Primary Surgeon: Arturo Bertrand Order Selector: Rola Aguilar EBL in mLs: 150 Complications: None Condition: Stable Free Text/Narrative:: Intake & Output 03/30/19 03/31/19 03/31/19 22:59 06:59 14:59 Intake Total 2114 Output Total 1550 Balance 564
[2019-03-31] MEDS ORDERED: HYDROmorphone 2 MG/ML Syringe IVPUSH ONE (14:53)
--- NOTE | 2019-03-31 15:06 | PCM.POSTAN ---
POST ANESTHESIA ASSESSMENT - MENTAL STATUS Mental Status: Alert, Oriented - VITAL SIGNS Vital Signs: Last Vital Signs Temp 37.6 C 03/31/19 14:29 Pulse 91 03/31/19 14:59 Resp 10 L 03/31/19 14:59 BP 122/54 L 03/31/19 14:59 Pulse Ox 98 03/31/19 14:59 - RESPIRATORY Respiratory Status: Respiratory Rate WNL - CARDIOVASCULAR CV Status: Pulse Rate WNL - GASTROINTESTINAL GI Status: No Symptoms - PAIN Pain Score: 1 - POST OP HYDRATION Hydration Status: Adequate & Stable - OBSERVATIONS Free Text/Narrative:: Doing well. VSS. Pain well controlled. Will transfer back to Med/Surg room.
--- NOTE | 2019-03-31 15:34 | OR ---
SURGEON: Arturo Bertrand DATE OF PROCEDURE: 03/31/2019 PREOPERATIVE DIAGNOSIS: Left hip intertrochanteric fracture, closed. POSTOPERATIVE DIAGNOSIS: Left hip intertrochanteric fracture, closed. PROCEDURE: Left hip cephalomedullary nail. PRIMARY SURGEON: Arturo Bertrand DO. BOARD WINDER: ELIDA Chong. ROLE OF BOARD WINDER: Nurse practitioner, ELIDA Chong, played an essential role in assisting in this case, helping to position the patient, retract structures as needed, as well as suturing and cutting sutures as indicated. Her presence improved patient's safety and decreased operative time. ANESTHESIA: General endotracheal intubation. FLUID: Lactated Ringer solution. ESTIMATED BLOOD LOSS: 150 mL. COMPLICATIONS: None. SPECIMEN: None. DISCHARGE DISPOSITION: Stable to PACU. INSTRUMENTATION: Used Ceros Gamma nail 10 x 380 with a 10.5 x 100 mm femoral head screw and 5 x 45 distal locking screw. HISTORY AND INDICATION FOR THE PROCEDURE: The patient was seen preoperatively in the emergency department, admitted to my service. He had suffered the above-mentioned fracture which was confirmed on plain films. Risks and goals of the procedure were explained to the patient. Informed consent was obtained. DETAILS OF PROCEDURE: The patient was seen preoperatively by myself and the Anesthesia staff in the preoperative holding area where the operative site was marked. He was brought to the operative suite by Anesthesia staff where general anesthesia was administered. He was placed on the trauma table. Both of his feet were placed in traction boots. He already had a Calderon catheter placed. The left lower extremity was then prepped and draped in a sterile manner. Time-out was called identifying the correct patient, the correct procedure, the correct site, and that antibiotics have been given within appropriate period of time. A sterilely draped fluoroscopy unit was used to identify the tip of the greater trochanter. I then made an incision proximal to that and carried it down to it and then went through the iliotibial band. I then used trocar to enter the greater trochanter at about the midway between the anterior and posterior and then carried the K-wire down to the distal femur. This measured about 405, I settled on a 380. We then sequentially reamed from 9 to 12 and then did an opening reamer. We then removed our guidewire and then placed our 380 x 10 nail. Once this appeared to be in a good position, I used my guide and then made an incision for the femoral head screw. I then used the guidewire and confirmed tip apex distance on AP and lateral fluoroscopy. We then drilled for the screw and then placed my 10.5 x 100 mm screw. We then locked this in place and then removed our outrigger guide. We then focused on our distal locking screw. This was done with a perfect [place] technique. It measured 45 mm, so I placed a 5 x 45 mm screw. We then took final AP and lateral films. We then irrigated with Betadine infused irrigation, applied topical TXA, infiltrated with periarticular injection, and then closed with 0 Stratafix and natali followed by Betadine-soaked Adaptic sponges and Medipore tape. The patient was allowed to come off the traction table, then taken to the PACU in stable condition. [id number] / MODL /[id number]
--- NOTE | 2019-03-31 15:53 | PCM.CONS ---
<Livan Harris M - Last Filed: 03/31/19 18:28> H&P History of Present Illness - General Date of Service: 03/31/19 Admit Problem/Dx: Admission Diagnosis/Problem Admission Diagnosis/Problem Hip fracture requiring operative repair Source of Information: Patient History Limitations: Reports: No Limitations - History of Present Illness Initial Comments - Free Text/Narative: 64-year-old male admitted for left hip fracture. He is s/p left hip gamma nail placement POD#0. He has a PMH of hypertension and hyperlipidemia. 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 Patient denied hitting his head or losing consciousness, dizziness or fainting. He then proceeded to the ER where left hip x ray revealed a femoral neck fracture. CXR was negative. Orthopedic surgery admitted patient and took to patient for surgery earlier today. Medicine team was consulted for management of hypertension and hyperlipidemia. Patient reports that he takes amlodipine, chlorthalidone, lisinopril and a statin medication for cholesterol at home. His PCP is Dr. Wallace and last saw him a few months ago. He reports no other past medical history. Patient denies having any fevers, chills, blurry vision, sore throat, cough, shortness of breath, chest pain, nausea, vomiting, diarrhea, blood in stool or blood in urine. Left Hip Pain Score (Numeric/FACES): 5 - Related Data Allergies/Adverse Reactions: Allergies Allergy/AdvReac Type Severity Reaction Status Date / Time Penicillins Allergy Rash Verified 03/30/19 16:04 Home Medications: Home Meds Chlorthalidone 25 mg PO DAILY 03/31/19 [History] Lisinopril 40 mg PO DAILY 03/31/19 [History] Rosuvastatin Calcium 20 mg PO DAILY 03/31/19 [History] amLODIPine Besylate [Amlodipine Besylate] 10 mg PO DAILY 03/31/19 [History] raNITIdine HCl [Ranitidine HCl] 300 mg PO BID 03/31/19 [History] traMADol HCl [Tramadol HCl] 03/31/19 [History] Past Medical History HEENT History: Reports: None Cardiovascular History: Reports: Blood Clots/VTE/DVT, High Cholesterol, Hypertension Respiratory History: Reports: Asthma Genitourinary History: Reports: None Musculoskeletal History: Reports: Arthritis, Back Pain, Chronic, Fracture Neurological History: Reports: None Psychiatric History: Reports: Depression Endocrine/Metabolic History: Reports: None Hematologic History: Reports: None Oncologic (Cancer) History: Reports: None Dermatologic History: Reports: Eczema - Infectious Disease History Infectious Disease History: Reports: None - Past Surgical History HEENT Surgical History: Reports: None Cardiovascular Surgical History: Reports: None Respiratory Surgical History: Reports: None GI Surgical History: Reports: Hernia, Abdominal Male Surgical History: Reports: None Neurological Surgical History: Reports: None Other Musculoskeletal Surgeries/Procedures:: Back surgery. Left hip surgery Oncologic Surgical History: Reports: None Social & Family History - Family History Family Medical History: Noncontributory - Tobacco Use Smoking Status *Q: Former Smoker Years of Tobacco use: 15 Packs/Tins Daily: 1 Used Tobacco, but Quit: Yes Month/Year Tobacco Last Used: 1999 - Caffeine Use Caffeine Use: Reports: Coffee - Recreational Drug Use Recreational Drug Use: No H&P Review of Systems - Review of Systems: Review Of Systems: Comprehensive ROS is negative, except as noted in HPI. Exam - Exam Exam: See Below - Vital Signs Vital Signs: Last Vital Signs Temp 98.7 F 03/31/19 15:30 Pulse 90 03/31/19 15:30 Resp 12 03/31/19 15:30 BP 118/59 L 03/31/19 15:30 Pulse Ox 98 03/31/19 15:30 Weight: 97.522 kg - Exam General: Alert, Oriented, Cooperative Neck: Supple, Trachea Midline Lungs: Clear to Auscultation, Normal Respiratory Effort Cardiovascular: Regular Rate, Regular Rhythm GI/Abdominal Exam: Normal Bowel Sounds, Soft, Non-Tender, No Distention Extremities: Other (Immobilizer on left leg. SCD's on bilaterally.) Peripheral Pulses: 2+: Posterior Tibial (L), Posterior Tibial (R) Skin: Warm, Dry, Intact Neuro Extensive - Mental Status: Alert, Oriented x3, Normal Mood/Affect - Patient Data Result Diagrams: 03/31/19 15:54 03/31/19 15:54 Consult PN Assessment/Plan Problem List Initiated/Reviewed/Updated: Yes My Orders Last 24 Hours: My Active Orders 03/31/19 15:14 CBC WITH AUTO DIFF [HEME] Urgent COMPREHENSIVE METABOLIC PN,CMP [CHEM] Urgent LIPID PANEL [CHEM] Urgent MAGNESIUM [CHEM] Urgent PHOSPHORUS [CHEM] Urgent Plan: Assessment: 1. Left femoral neck fracture s/p left hip gamma nail insertion POD #0. 2. Leukocytosis likely secondary to #1. 3. Hypokalemia. 4. Hypertension. 5. Hyperlipidemia. Plan: 1. For left femoral neck fracture, management per orthopedic surgery. Patient has returned from OR today in stable condition. 2. For hypokalemia, will replete with 40 mEq PO x 1. Will recheck with AM labs. Magnesium and phosphorus level normal. 3. For hypertension, patient's blood pressure well controlled at this time. Will continue to monitor. 4. For hyperlipidemia, will continue home medication. 5. DVT prophylaxis per orthopedic surgery. <Kailash Fernandez - Last Filed: 04/01/19 11:55> H&P History of Present Illness - General Admit Problem/Dx: Admission Diagnosis/Problem Admission Diagnosis/Problem Hip fracture requiring operative repair Exam - Vital Signs Vital Signs: Last Vital Signs Temp 37.1 C 04/01/19 11:45 Pulse 91 04/01/19 11:45 Resp 18 04/01/19 11:45 BP 109/55 L 04/01/19 11:45 Pulse Ox 95 04/01/19 11:45 - Patient Data Lab Results Last 24 hrs: Laboratory Results - last 24 hr 03/31/19 03/31/19 04/01/19 Range/Units 15:54 15:54 05:10 WBC 13.46 H 13.19 H (4.0-11.0) K/uL RBC 3.82 L 3.51 L (4.50-5.90) M/uL Hgb 12.4 L 11.3 L (13.0-17.0) g/dL Hct 34.8 L 32.6 L (38.0-50.0) % MCV 91.1 92.9 (80.0-98.0) fL MCH 32.5 H 32.2 H (27.0-32.0) pg MCHC 35.6 34.7 (31.0-37.0) g/dL RDW Std Deviation 45.5 46.0 (28.0-62.0) fl RDW Coeff of Kalyn 14 14 (11.0-15.0) % Plt Count 228 210 (150-400) K/uL MPV 9.20 9.80 (7.40-12.00) fL Neut % (Auto) 73.5 (48.0-80.0) % Lymph % (Auto) 10.8 L (16.0-40.0) % [place] % (Auto) 14.1 (0.0-15.0) % Eos % (Auto) 1.3 (0.0-7.0) % Baso % (Auto) 0.3 (0.0-1.5) % Neut # (Auto) 9.9 H (1.4-5.7) K/uL Lymph # (Auto) 1.5 (0.6-2.4) K/uL [place] # (Auto) 1.9 H (0.0-0.8) K/uL Eos # (Auto) 0.2 (0.0-0.7) K/uL Baso # (Auto) 0.0 (0.0-0.1) K/uL Add Manual Diff YES Neutrophils % (Manual) 77 (48.0-80.0) % Band Neutrophils % 1 % Lymphocytes % (Manual) 8 L (16.0-40.0) % Monocytes % (Manual) 11 (0.0-15.0) % Eosinophils % (Manual) 3 (0.0-7.0) % Absolute Seg Neuts 10.2 H (1.4-5.7) Band Neutrophils # 0.1 Lymphocytes # (Manual) 1.1 (0.6-2.4) Monocytes # (Manual) 1.5 H (0.0-0.8) Eosinophils # (Manual) 0.4 (0.0-0.7) Lactate (0.20-2.00) mmol/L Sodium 141 (136-148) mmol/L Potassium 3.3 L (3.5-5.1) mmol/L Chloride 104 (98-107) mmol/L Carbon Dioxide 27.8 (21.0-32.0) mmol/L BUN 14 (7.0-18.0) mg/dL Creatinine 1.0 (0.8-1.3) mg/dL Est Cr Clr Drug Dosing 85.45 mL/min Estimated GFR (MDRD) > 60.0 ml/min Glucose 123 H (74-106) mg/dL Calcium 7.9 L (8.5-10.1) mg/dL Phosphorus 3.5 (2.6-4.7) mg/dL Magnesium 2.0 (1.8-2.4) mg/dL Total Bilirubin 0.6 (0.2-1.0) mg/dL AST 15 (15-37) IU/L ALT 26 (14-63) IU/L Alkaline Phosphatase 44 L (46-116) U/L Total Protein 6.0 L (6.4-8.2) g/dL Albumin 3.1 L (3.4-5.0) g/dL Globulin 2.9 (2.6-4.0) g/dL Albumin/Globulin Ratio 1.1 (0.9-1.6) Triglycerides 88 (0-200) mg/dL Cholesterol 142 (50-200) mg/dL LDL Cholesterol, Calc 84 (60-180) mg/dL VLDL Cholesterol 17 (5-55) mg/dL HDL Cholesterol 40 (40-60) mg/dL Cholesterol/HDL Ratio 3.6 (3.3-6.0) 04/01/19 04/01/19 Range/Units 05:10 09:43 WBC (4.0-11.0) K/uL RBC (4.50-5.90) M/uL Hgb (13.0-17.0) g/dL Hct (38.0-50.0) % MCV (80.0-98.0) fL MCH (27.0-32.0) pg MCHC (31.0-37.0) g/dL RDW Std Deviation (28.0-62.0) fl RDW Coeff of Kalyn (11.0-15.0) % Plt Count (150-400) K/uL MPV (7.40-12.00) fL Neut % (Auto) (48.0-80.0) % Lymph % (Auto) (16.0-40.0) % [place] % (Auto) (0.0-15.0) % Eos % (Auto) (0.0-7.0) % Baso % (Auto) (0.0-1.5) % Neut # (Auto) (1.4-5.7) K/uL Lymph # (Auto) (0.6-2.4) K/uL [place] # (Auto) (0.0-0.8) K/uL Eos # (Auto) (0.0-0.7) K/uL Baso # (Auto) (0.0-0.1) K/uL Add Manual Diff Neutrophils % (Manual) (48.0-80.0) % Band Neutrophils % % Lymphocytes % (Manual) (16.0-40.0) % Monocytes % (Manual) (0.0-15.0) % Eosinophils % (Manual) (0.0-7.0) % Absolute Seg Neuts (1.4-5.7) Band Neutrophils # Lymphocytes # (Manual) (0.6-2.4) Monocytes # (Manual) (0.0-0.8) Eosinophils # (Manual) (0.0-0.7) Lactate 1.5 (0.20-2.00) mmol/L Sodium 139 (136-148) mmol/L Potassium 3.8 (3.5-5.1) mmol/L Chloride 104 (98-107) mmol/L Carbon Dioxide 29.7 (21.0-32.0) mmol/L BUN 15 (7.0-18.0) mg/dL Creatinine 1.0 (0.8-1.3) mg/dL Est Cr Clr Drug Dosing 85.45 mL/min Estimated GFR (MDRD) > 60.0 ml/min Glucose 116 H (74-106) mg/dL Calcium 8.4 L (8.5-10.1) mg/dL Phosphorus (2.6-4.7) mg/dL Magnesium (1.8-2.4) mg/dL Total Bilirubin 0.6 (0.2-1.0) mg/dL AST 19 (15-37) IU/L ALT 23 (14-63) IU/L Alkaline Phosphatase 40 L (46-116) U/L Total Protein 5.8 L (6.4-8.2) g/dL Albumin 2.9 L (3.4-5.0) g/dL Globulin 2.9 (2.6-4.0) g/dL Albumin/Globulin Ratio 1.0 (0.9-1.6) Triglycerides (0-200) mg/dL Cholesterol (50-200) mg/dL LDL Cholesterol, Calc (60-180) mg/dL VLDL Cholesterol (5-55) mg/dL HDL Cholesterol (40-60) mg/dL Cholesterol/HDL Ratio (3.3-6.0) Result Diagrams: 04/01/19 05:10 04/01/19 05:10 Consult PN Assessment/Plan Plan: I performed a history and physical exam of the patient and discussed management with resident. I have reviewed the residents note and agree with documented findings and plan unless otherwise specified in my note.
[2019-03-31 16:39] LABS: BLOOD UREA NITROGEN,BUN 14 mg/dL (7.0-18.0); CARBON DIOXIDE,CO2 27.8 mmol/L (21.0-32.0); CHLORIDE,CL 104 mmol/L (98-107); GLUCOSE RANDOM 123 mg/dL (74-106); POTASSIUM,K 3.3 mmol/L (3.5-5.1); SODIUM,NA 141 mmol/L (136-148)
[2019-03-31] MEDS ORDERED: Potassium Chloride 20 MEQ Tab.ER PO ONE (16:44)
[2019-03-31] MEDS ORDERED: Lisinopril 10 MG Tab PO SCH (17:00)
[2019-03-31] MEDS: Acetaminophen/oxyCODONE 325-5 MG Tab PO PRN (17:40)
[2019-03-31] MEDS: Ketorolac 30 MG/ML SDV IVPUSH SCH (19:19)
[2019-03-31] MEDS: Clindamycin Phosphate in D5W 600 MG in Premix Bag 50 BAG IV SCH ×2 (20:19)
[2019-03-31] MEDS ORDERED: amLODIPine 5 MG Tab PO SCH (21:00)
[2019-03-31] MEDS: Rosuvastatin 10 MG Tab PO SCH (21:10)
[2019-04-01] MEDS: Ketorolac 30 MG/ML SDV IVPUSH SCH (01:02)
[2019-04-01] MEDS: Clindamycin Phosphate in D5W 600 MG in Premix Bag 50 BAG IV SCH ×2 (03:29)
[2019-04-01] MEDS: Gabapentin 300 MG Cap PO SCH ×3 (05:27→21:51)
[2019-04-01 06:03] LABS: BLOOD UREA NITROGEN,BUN 15 mg/dL (7.0-18.0); CARBON DIOXIDE,CO2 29.7 mmol/L (21.0-32.0); CHLORIDE,CL 104 mmol/L (98-107); GLUCOSE RANDOM 116 mg/dL (74-106); POTASSIUM,K 3.8 mmol/L (3.5-5.1); SODIUM,NA 139 mmol/L (136-148)
--- NOTE | 2019-04-01 07:49 | PCM.PN ---
- General Info Date of Service: 04/01/19 Admission Dx/Problem (Free Text): Admission Diagnosis/Problem Admission Diagnosis/Problem Hip fracture requiring operative repair Functional Status: Reports: Pain Controlled, Tolerating Diet, Ambulating, Urinating - Review of Systems General: Reports: No Symptoms HEENT: Reports: No Symptoms Pulmonary: Reports: No Symptoms Cardiovascular: Reports: No Symptoms Gastrointestinal: Reports: No Symptoms Genitourinary: Reports: No Symptoms Musculoskeletal: Reports: Leg Pain, Joint Pain, Joint Swelling Skin: Reports: No Symptoms Neurological: Reports: No Symptoms Psychiatric: Reports: No Symptoms - Patient Data Vitals - Most Recent: Last Vital Signs Temp 37.6 C 04/01/19 04:00 Pulse 112 H 04/01/19 04:00 Resp 18 04/01/19 04:00 BP 108/55 L 04/01/19 04:00 Pulse Ox 92 L 04/01/19 04:00 Weight - Most Recent: 97.522 kg I&O - Last 24 Hours: Intake & Output 03/31/19 04/01/19 04/01/19 22:59 06:59 14:59 Intake Total 1874 1857 Output Total 525 475 Balance 1349 1382 Lab Results Last 24 Hours: Laboratory Results - last 24 hr 03/31/19 03/31/19 04/01/19 Range/Units 15:54 15:54 05:10 WBC 13.46 H 13.19 H (4.0-11.0) K/uL RBC 3.82 L 3.51 L (4.50-5.90) M/uL Hgb 12.4 L 11.3 L (13.0-17.0) g/dL Hct 34.8 L 32.6 L (38.0-50.0) % MCV 91.1 92.9 (80.0-98.0) fL MCH 32.5 H 32.2 H (27.0-32.0) pg MCHC 35.6 34.7 (31.0-37.0) g/dL RDW Std Deviation 45.5 46.0 (28.0-62.0) fl RDW Coeff of Klayn 14 14 (11.0-15.0) % Plt Count 228 210 (150-400) K/uL MPV 9.20 9.80 (7.40-12.00) fL Neut % (Auto) 73.5 (48.0-80.0) % Lymph % (Auto) 10.8 L (16.0-40.0) % [place] % (Auto) 14.1 (0.0-15.0) % Eos % (Auto) 1.3 (0.0-7.0) % Baso % (Auto) 0.3 (0.0-1.5) % Neut # (Auto) 9.9 H (1.4-5.7) K/uL Lymph # (Auto) 1.5 (0.6-2.4) K/uL [place] # (Auto) 1.9 H (0.0-0.8) K/uL Eos # (Auto) 0.2 (0.0-0.7) K/uL Baso # (Auto) 0.0 (0.0-0.1) K/uL Add Manual Diff YES Neutrophils % (Manual) 77 (48.0-80.0) % Band Neutrophils % 1 % Lymphocytes % (Manual) 8 L (16.0-40.0) % Monocytes % (Manual) 11 (0.0-15.0) % Eosinophils % (Manual) 3 (0.0-7.0) % Absolute Seg Neuts 10.2 H (1.4-5.7) Band Neutrophils # 0.1 Lymphocytes # (Manual) 1.1 (0.6-2.4) Monocytes # (Manual) 1.5 H (0.0-0.8) Eosinophils # (Manual) 0.4 (0.0-0.7) Sodium 141 (136-148) mmol/L Potassium 3.3 L (3.5-5.1) mmol/L Chloride 104 (98-107) mmol/L Carbon Dioxide 27.8 (21.0-32.0) mmol/L BUN 14 (7.0-18.0) mg/dL Creatinine 1.0 (0.8-1.3) mg/dL Est Cr Clr Drug Dosing 85.45 mL/min Estimated GFR (MDRD) > 60.0 ml/min Glucose 123 H (74-106) mg/dL Calcium 7.9 L (8.5-10.1) mg/dL Phosphorus 3.5 (2.6-4.7) mg/dL Magnesium 2.0 (1.8-2.4) mg/dL Total Bilirubin 0.6 (0.2-1.0) mg/dL AST 15 (15-37) IU/L ALT 26 (14-63) IU/L Alkaline Phosphatase 44 L (46-116) U/L Total Protein 6.0 L (6.4-8.2) g/dL Albumin 3.1 L (3.4-5.0) g/dL Globulin 2.9 (2.6-4.0) g/dL Albumin/Globulin Ratio 1.1 (0.9-1.6) Triglycerides 88 (0-200) mg/dL Cholesterol 142 (50-200) mg/dL LDL Cholesterol, Calc 84 (60-180) mg/dL VLDL Cholesterol 17 (5-55) mg/dL HDL Cholesterol 40 (40-60) mg/dL Cholesterol/HDL Ratio 3.6 (3.3-6.0) 04/01/19 Range/Units 05:10 WBC (4.0-11.0) K/uL RBC (4.50-5.90) M/uL Hgb (13.0-17.0) g/dL Hct (38.0-50.0) % MCV (80.0-98.0) fL MCH (27.0-32.0) pg MCHC (31.0-37.0) g/dL RDW Std Deviation (28.0-62.0) fl RDW Coeff of Kalyn (11.0-15.0) % Plt Count (150-400) K/uL MPV (7.40-12.00) fL Neut % (Auto) (48.0-80.0) % Lymph % (Auto) (16.0-40.0) % [place] % (Auto) (0.0-15.0) % Eos % (Auto) (0.0-7.0) % Baso % (Auto) (0.0-1.5) % Neut # (Auto) (1.4-5.7) K/uL Lymph # (Auto) (0.6-2.4) K/uL [place] # (Auto) (0.0-0.8) K/uL Eos # (Auto) (0.0-0.7) K/uL Baso # (Auto) (0.0-0.1) K/uL Add Manual Diff Neutrophils % (Manual) (48.0-80.0) % Band Neutrophils % % Lymphocytes % (Manual) (16.0-40.0) % Monocytes % (Manual) (0.0-15.0) % Eosinophils % (Manual) (0.0-7.0) % Absolute Seg Neuts (1.4-5.7) Band Neutrophils # Lymphocytes # (Manual) (0.6-2.4) Monocytes # (Manual) (0.0-0.8) Eosinophils # (Manual) (0.0-0.7) Sodium 139 (136-148) mmol/L Potassium 3.8 (3.5-5.1) mmol/L Chloride 104 (98-107) mmol/L Carbon Dioxide 29.7 (21.0-32.0) mmol/L BUN 15 (7.0-18.0) mg/dL Creatinine 1.0 (0.8-1.3) mg/dL Est Cr Clr Drug Dosing 85.45 mL/min Estimated GFR (MDRD) > 60.0 ml/min Glucose 116 H (74-106) mg/dL Calcium 8.4 L (8.5-10.1) mg/dL Phosphorus (2.6-4.7) mg/dL Magnesium (1.8-2.4) mg/dL Total Bilirubin 0.6 (0.2-1.0) mg/dL AST 19 (15-37) IU/L ALT 23 (14-63) IU/L Alkaline Phosphatase 40 L (46-116) U/L Total Protein 5.8 L (6.4-8.2) g/dL Albumin 2.9 L (3.4-5.0) g/dL Globulin 2.9 (2.6-4.0) g/dL Albumin/Globulin Ratio 1.0 (0.9-1.6) Triglycerides (0-200) mg/dL Cholesterol (50-200) mg/dL LDL Cholesterol, Calc (60-180) mg/dL VLDL Cholesterol (5-55) mg/dL HDL Cholesterol (40-60) mg/dL Cholesterol/HDL Ratio (3.3-6.0) Med Orders - Current: Current Medications Al Hydroxide/Mg Hydroxide (Mag-Al Plus) 30 ml PO Q4H PRN PRN Reason: Indigestion Aspirin (Aspirin) 325 mg PO DAILY [facility] Bisacodyl (Dulcolax) 10 mg RECTAL DAILY PRN PRN Reason: Constipation Diphenhydramine HCl (Benadryl) 25 - 50 mg PO Q6H PRN PRN Reason: Itching Docusate Sodium (Colace) 100 mg PO BID PRN PRN Reason: Constipation Famotidine (Pepcid) 40 mg PO DAILY [facility] Gabapentin (Neurontin) 300 mg PO TID [facility] Last Admin: 04/01/19 05:27 Dose: 300 mg Lactated Ringer's (Ringers, Lactated) 1,000 mls @ 75 mls/hr IV ASDIRECTED [facility] Last Admin: 03/31/19 11:57 Dose: 75 mls/hr Morphine Sulfate (Morphine) 1 - 2 mg IVPUSH Q3H PRN PRN Reason: Pain Ondansetron HCl (Zofran) 4 mg IVPUSH Q6H PRN PRN Reason: Nausea/Vomiting Oxycodone/Acetaminophen (Percocet 325-5 Mg) 1 tab PO QID PRN PRN Reason: Pain Last Admin: 03/31/19 17:40 Dose: 1 tab Polyethylene Glycol (Miralax) 17 gm PO DAILY [facility] Rosuvastatin Calcium (Crestor) 20 mg PO BEDTIME [facility] Last Admin: 03/31/19 21:10 Dose: 20 mg Scopolamine (Transderm-Scop) 1.5 mg TRDERM ONARRIVE [facility] Sodium Chloride (Saline Flush) 10 ml FLUSH ASDIRECTED PRN PRN Reason: Keep Vein Open Sodium Chloride (Saline Flush) 2.5 ml FLUSH ASDIRECTED PRN PRN Reason: Keep Vein Open Discontinued Medications Hydrocodone Bitart/Acetaminophen (Pe Ell 325-5 Mg) 1 - 2 tab PO Q4H PRN PRN Reason: Pain Last Admin: 03/30/19 17:41 Dose: 2 tab Amlodipine Besylate (Norvasc) 10 mg PO DAILY [facility] Last Admin: 03/31/19 21:11 Dose: 10 mg Chlorthalidone (Chlorthalidone) 25 mg PO DAILY [facility] Docusate Sodium (Colace) 100 mg PO BID PRN PRN Reason: Constipation Ephedrine Sulfate (Ephedrine Sulfate) Confirm Administered Dose 50 mg .ROUTE .STK-MED ONE Stop: 03/31/19 13:06 Fentanyl (Sublimaze) Confirm Administered Dose 100 mcg .ROUTE .STK-MED ONE Stop: 03/31/19 11:13 Fentanyl (Fentanyl) 50 mcg IVPUSH ONETIME ONE Stop: 03/31/19 13:43 Last Admin: 03/31/19 15:12 Dose: Not Given Hydromorphone HCl (Dilaudid) 1 mg IV ONETIME ONE Stop: 03/30/19 10:06 Last Admin: 03/30/19 10:13 Dose: 1 mg Hydromorphone HCl (Dilaudid) 1 mg IVPUSH ONETIME ONE Stop: 03/30/19 12:10 Last Admin: 03/30/19 12:26 Dose: 1 mg Hydromorphone HCl (Dilaudid) 1 mg IVPUSH ONETIME ONE Stop: 03/30/19 14:05 Last Admin: 03/30/19 14:10 Dose: 1 mg Hydromorphone HCl (Dilaudid) Confirm Administered Dose 2 mg .ROUTE .STK-MED ONE Stop: 03/31/19 13:00 Hydromorphone HCl (Dilaudid) Confirm Administered Dose 2 mg .ROUTE .STK-MED ONE Stop: 03/31/19 14:51 Last Admin: 03/31/19 15:12 Dose: Not Given Hydromorphone HCl (Dilaudid) 2 mg IVPUSH ONETIME ONE Stop: 03/31/19 14:54 Last Admin: 03/31/19 14:51 Dose: 1 mg Clindamycin Phosphate 600 mg/ (Premix) 50 mls @ 92.593 mls/hr IV ONCALL [facility] Tranexamic Acid 2,000 mg/ (Sodium Chloride) 120 mls @ 360 mls/hr IV ASDIRECTED ONE Stop: 03/30/19 11:47 Last Admin: 03/31/19 15:12 Dose: Not Given Ropivacaine 49.25 ml/Ketorolac Tromethamine 30 mg/Epinephrine HCl 0.5 mg/ Sodium Chloride 74.2 mls @ 50 mls/sec INJECT ASDIRECTED [place] Stop: 03/30/19 11:31 Famotidine 40 mg/ Sodium (Chloride) 10 mls @ 300 mls/hr IV ONETIME ONE Stop: 03/30/19 11:46 Last Admin: 03/31/19 15:12 Dose: Not Given Ropivacaine 49.25 ml/Ketorolac Tromethamine 30 mg/Epinephrine HCl 0.5 mg/ Sodium Chloride 74.2 mls @ 50 mls/sec INJECT ASDIRECTED [facility] Acetaminophen (Ofirmev) Confirm Administered Dose 100 mls @ as directed .ROUTE .STK-MED ONE Stop: 03/31/19 11:17 Sodium Chloride (Normal Saline) Confirm Administered Dose 20 mls @ as directed .ROUTE .STK-MED ONE Stop: 03/31/19 13:06 Clindamycin Phosphate 600 mg/ (Premix) 50 mls @ 100 mls/hr IV Q8H [facility] Stop: 04/01/19 04:29 Last Admin: 04/01/19 03:29 Dose: 100 mls/hr Ketorolac Tromethamine (Toradol) 15 mg IVPUSH ONARRIVE [facility] Ketorolac Tromethamine (Toradol) Confirm Administered Dose 30 mg .ROUTE .STK- MED ONE Stop: 03/31/19 12:58 Ketorolac Tromethamine (Toradol) 30 mg IVPUSH Q6H [facility] Stop: 04/01/19 05:00 Last Admin: 04/01/19 01:02 Dose: 30 mg Lisinopril (Prinivil) 40 mg PO DAILY [facility] Last Admin: 03/31/19 17:42 Dose: Not Given Midazolam HCl (Versed 1 Mg/Ml) Confirm Administered Dose 2 mg .ROUTE .STK-MED ONE Stop: 03/31/19 11:13 Morphine Sulfate (Morphine) 4 mg IVPUSH ONETIME ONE Stop: 03/30/19 09:06 Last Admin: 03/30/19 09:09 Dose: 4 mg Morphine Sulfate (Morphine) 2 mg IVPUSH Q2H PRN PRN Reason: Pain Last Admin: 03/31/19 09:36 Dose: 2 mg Ondansetron HCl (Zofran) 4 mg IVPUSH ONETIME ONE Stop: 03/30/19 09:05 Last Admin: 03/30/19 09:09 Dose: 4 mg Ondansetron HCl (Zofran) 4 mg PO Q6H PRN PRN Reason: Nausea/Vomiting Ondansetron HCl (Zofran) Confirm Administered Dose 4 mg .ROUTE .STK-MED ONE Stop: 03/31/19 11:13 Potassium Chloride (Potassium Chloride) 40 meq PO ONETIME ONE Stop: 03/30/19 13:17 Last Admin: 03/30/19 16:31 Dose: Not Given Potassium Chloride (Potassium Chloride) 40 meq PO ONETIME ONE Stop: 03/30/19 16:01 Last Admin: 03/30/19 17:37 Dose: 40 meq Potassium Chloride (Klor-Con M20) 40 meq PO ONETIME ONE Stop: 03/31/19 16:45 Last Admin: 03/31/19 17:40 Dose: 40 meq Propofol (Diprivan 20 Ml) Confirm Administered Dose 400 mg .ROUTE .STK-MED ONE Stop: 03/31/19 11:13 Sodium Chloride (Saline Flush) 10 ml FLUSH ASDIRECTED PRN PRN Reason: Keep Vein Open Last Admin: 03/30/19 09:10 Dose: 10 ml Sodium Chloride (Saline Flush) 2.5 ml FLUSH ASDIRECTED PRN PRN Reason: Keep Vein Open Last Admin: 03/30/19 09:10 Dose: 2.5 ml Sugammadex Sodium ([place]) Confirm Administered Dose 200 mg .ROUTE .STK-MED ONE Stop: 03/31/19 14:09 Tranexamic Acid (Cyklokapron) Confirm Administered Dose 1,000 mg .ROUTE .STK- MED ONE Stop: 03/31/19 11:47 - Exam General: Alert, Oriented, Cooperative, Mild Distress HEENT: Pupils Equal, Pupils Reactive, EOMI, Mucous Membr. Moist/[place] Neck: Supple, Trachea Midline Lungs: Normal Respiratory Effort GI/Abdominal Exam: No Distention Extremities: Joint Swelling, Leg Pain, Limited Range of Motion Peripheral Pulses: 2+: Dorsalis Pedis (L) Skin: Warm, Dry, Intact Wound/Incisions: Healing Well, Dressing Dry and Intact, Drainage Neurological: No New Focal Deficit Psy/Mental Status: Alert, Normal Affect, Normal Mood - Problem List & Annotations (1) Fracture, intertrochanteric, left femur SNOMED Code(s): 724883568 Code(s): S72.142A - DISPLACED INTERTROCHANTERIC FRACTURE OF LEFT FEMUR, INIT Status: Acute Current Visit: Yes Qualifiers: Encounter type: initial encounter Fracture type: closed Fracture alignment: displaced Qualified Code(s): S72.142A - Displaced intertrochanteric fracture of left femur, initial encounter for closed fracture - Problem List Review Problem List Initiated/Reviewed/Updated: Yes - Plan Plan:: A: POD 1 left hip cephallomedullary nail P: pt/ot, dvt prophylaxis, pain control
[2019-04-01] MEDS: Polyethylene Glycol 3350 Powder 17 GM Packet PO SCH (08:06)
[2019-04-01] MEDS: Famotidine 20 MG Tab PO SCH (08:06)
[2019-04-01] MEDS: Acetaminophen/oxyCODONE 325-5 MG Tab PO PRN ×3 (08:15→23:31)
[2019-04-01] MEDS ORDERED: Aspirin 325 MG Tab PO SCH (09:00)
[2019-04-01] MEDS ORDERED: Chlorthalidone 25 MG Tab PO SCH (09:00)
--- NOTE | 2019-04-01 09:04 | PCM.CONSN ---
- General Info Date of Service: 04/01/19 Subjective Update: No complaints at bedside this morning. Reports tolerating PO diet. Denies shortness of breath, cough, nausea or pain. No bowel movement yesterday. Per nurse, fever of 101 F this morning. - Patient Data Vitals - Most Recent: Last Vital Signs Temp 101 F H 04/01/19 08:00 Pulse 116 H 04/01/19 08:00 Resp 14 04/01/19 08:00 BP 114/57 L 04/01/19 08:00 Pulse Ox 95 04/01/19 08:00 Weight - Most Recent: 215 lb I&O - Last 24 Hours: Intake & Output 03/31/19 04/01/19 04/01/19 22:59 06:59 14:59 Intake Total 1874 1857 Output Total 525 475 Balance 1349 1382 Lab Results Last 24 Hours: Laboratory Results - last 24 hr 03/31/19 03/31/19 04/01/19 Range/Units 15:54 15:54 05:10 WBC 13.46 H 13.19 H (4.0-11.0) K/uL RBC 3.82 L 3.51 L (4.50-5.90) M/uL Hgb 12.4 L 11.3 L (13.0-17.0) g/dL Hct 34.8 L 32.6 L (38.0-50.0) % MCV 91.1 92.9 (80.0-98.0) fL MCH 32.5 H 32.2 H (27.0-32.0) pg MCHC 35.6 34.7 (31.0-37.0) g/dL RDW Std Deviation 45.5 46.0 (28.0-62.0) fl RDW Coeff of Kalyn 14 14 (11.0-15.0) % Plt Count 228 210 (150-400) K/uL MPV 9.20 9.80 (7.40-12.00) fL Neut % (Auto) 73.5 (48.0-80.0) % Lymph % (Auto) 10.8 L (16.0-40.0) % [place] % (Auto) 14.1 (0.0-15.0) % Eos % (Auto) 1.3 (0.0-7.0) % Baso % (Auto) 0.3 (0.0-1.5) % Neut # (Auto) 9.9 H (1.4-5.7) K/uL Lymph # (Auto) 1.5 (0.6-2.4) K/uL [place] # (Auto) 1.9 H (0.0-0.8) K/uL Eos # (Auto) 0.2 (0.0-0.7) K/uL Baso # (Auto) 0.0 (0.0-0.1) K/uL Add Manual Diff YES Neutrophils % (Manual) 77 (48.0-80.0) % Band Neutrophils % 1 % Lymphocytes % (Manual) 8 L (16.0-40.0) % Monocytes % (Manual) 11 (0.0-15.0) % Eosinophils % (Manual) 3 (0.0-7.0) % Absolute Seg Neuts 10.2 H (1.4-5.7) Band Neutrophils # 0.1 Lymphocytes # (Manual) 1.1 (0.6-2.4) Monocytes # (Manual) 1.5 H (0.0-0.8) Eosinophils # (Manual) 0.4 (0.0-0.7) Sodium 141 (136-148) mmol/L Potassium 3.3 L (3.5-5.1) mmol/L Chloride 104 (98-107) mmol/L Carbon Dioxide 27.8 (21.0-32.0) mmol/L BUN 14 (7.0-18.0) mg/dL Creatinine 1.0 (0.8-1.3) mg/dL Est Cr Clr Drug Dosing 85.45 mL/min Estimated GFR (MDRD) > 60.0 ml/min Glucose 123 H (74-106) mg/dL Calcium 7.9 L (8.5-10.1) mg/dL Phosphorus 3.5 (2.6-4.7) mg/dL Magnesium 2.0 (1.8-2.4) mg/dL Total Bilirubin 0.6 (0.2-1.0) mg/dL AST 15 (15-37) IU/L ALT 26 (14-63) IU/L Alkaline Phosphatase 44 L (46-116) U/L Total Protein 6.0 L (6.4-8.2) g/dL Albumin 3.1 L (3.4-5.0) g/dL Globulin 2.9 (2.6-4.0) g/dL Albumin/Globulin Ratio 1.1 (0.9-1.6) Triglycerides 88 (0-200) mg/dL Cholesterol 142 (50-200) mg/dL LDL Cholesterol, Calc 84 (60-180) mg/dL VLDL Cholesterol 17 (5-55) mg/dL HDL Cholesterol 40 (40-60) mg/dL Cholesterol/HDL Ratio 3.6 (3.3-6.0) 04/01/19 Range/Units 05:10 WBC (4.0-11.0) K/uL RBC (4.50-5.90) M/uL Hgb (13.0-17.0) g/dL Hct (38.0-50.0) % MCV (80.0-98.0) fL MCH (27.0-32.0) pg MCHC (31.0-37.0) g/dL RDW Std Deviation (28.0-62.0) fl RDW Coeff of Kalyn (11.0-15.0) % Plt Count (150-400) K/uL MPV (7.40-12.00) fL Neut % (Auto) (48.0-80.0) % Lymph % (Auto) (16.0-40.0) % [place] % (Auto) (0.0-15.0) % Eos % (Auto) (0.0-7.0) % Baso % (Auto) (0.0-1.5) % Neut # (Auto) (1.4-5.7) K/uL Lymph # (Auto) (0.6-2.4) K/uL [place] # (Auto) (0.0-0.8) K/uL Eos # (Auto) (0.0-0.7) K/uL Baso # (Auto) (0.0-0.1) K/uL Add Manual Diff Neutrophils % (Manual) (48.0-80.0) % Band Neutrophils % % Lymphocytes % (Manual) (16.0-40.0) % Monocytes % (Manual) (0.0-15.0) % Eosinophils % (Manual) (0.0-7.0) % Absolute Seg Neuts (1.4-5.7) Band Neutrophils # Lymphocytes # (Manual) (0.6-2.4) Monocytes # (Manual) (0.0-0.8) Eosinophils # (Manual) (0.0-0.7) Sodium 139 (136-148) mmol/L Potassium 3.8 (3.5-5.1) mmol/L Chloride 104 (98-107) mmol/L Carbon Dioxide 29.7 (21.0-32.0) mmol/L BUN 15 (7.0-18.0) mg/dL Creatinine 1.0 (0.8-1.3) mg/dL Est Cr Clr Drug Dosing 85.45 mL/min Estimated GFR (MDRD) > 60.0 ml/min Glucose 116 H (74-106) mg/dL Calcium 8.4 L (8.5-10.1) mg/dL Phosphorus (2.6-4.7) mg/dL Magnesium (1.8-2.4) mg/dL Total Bilirubin 0.6 (0.2-1.0) mg/dL AST 19 (15-37) IU/L ALT 23 (14-63) IU/L Alkaline Phosphatase 40 L (46-116) U/L Total Protein 5.8 L (6.4-8.2) g/dL Albumin 2.9 L (3.4-5.0) g/dL Globulin 2.9 (2.6-4.0) g/dL Albumin/Globulin Ratio 1.0 (0.9-1.6) Triglycerides (0-200) mg/dL Cholesterol (50-200) mg/dL LDL Cholesterol, Calc (60-180) mg/dL VLDL Cholesterol (5-55) mg/dL HDL Cholesterol (40-60) mg/dL Cholesterol/HDL Ratio (3.3-6.0) Med Orders - Current: Current Medications Al Hydroxide/Mg Hydroxide (Mag-Al Plus) 30 ml PO Q4H PRN PRN Reason: Indigestion Aspirin (Aspirin) 325 mg PO DAILY [facility] Last Admin: 04/01/19 08:06 Dose: 325 mg Bisacodyl (Dulcolax) 10 mg RECTAL DAILY PRN PRN Reason: Constipation Diphenhydramine HCl (Benadryl) 25 - 50 mg PO Q6H PRN PRN Reason: Itching Docusate Sodium (Colace) 100 mg PO BID PRN PRN Reason: Constipation Famotidine (Pepcid) 40 mg PO DAILY [facility] Last Admin: 04/01/19 08:06 Dose: 40 mg Gabapentin (Neurontin) 300 mg PO TID [facility] Last Admin: 04/01/19 05:27 Dose: 300 mg Lactated Ringer's (Ringers, Lactated) 1,000 mls @ 75 mls/hr IV ASDIRECTED [facility] Last Admin: 03/31/19 11:57 Dose: 75 mls/hr Morphine Sulfate (Morphine) 1 - 2 mg IVPUSH Q3H PRN PRN Reason: Pain Ondansetron HCl (Zofran) 4 mg IVPUSH Q6H PRN PRN Reason: Nausea/Vomiting Oxycodone/Acetaminophen (Percocet 325-5 Mg) 1 tab PO QID PRN PRN Reason: Pain Last Admin: 04/01/19 08:15 Dose: 1 tab Polyethylene Glycol (Miralax) 17 gm PO DAILY [facility] Last Admin: 04/01/19 08:06 Dose: 17 gm Rosuvastatin Calcium (Crestor) 20 mg PO BEDTIME [facility] Last Admin: 03/31/19 21:10 Dose: 20 mg Scopolamine (Transderm-Scop) 1.5 mg TRDERM ONARRIVE [facility] Sodium Chloride (Saline Flush) 10 ml FLUSH ASDIRECTED PRN PRN Reason: Keep Vein Open Sodium Chloride (Saline Flush) 2.5 ml FLUSH ASDIRECTED PRN PRN Reason: Keep Vein Open Discontinued Medications Hydrocodone Bitart/Acetaminophen ([place] 325-5 Mg) 1 - 2 tab PO Q4H PRN PRN Reason: Pain Last Admin: 03/30/19 17:41 Dose: 2 tab Amlodipine Besylate (Norvasc) 10 mg PO DAILY [facility] Last Admin: 03/31/19 21:11 Dose: 10 mg Chlorthalidone (Chlorthalidone) 25 mg PO DAILY [facility] Docusate Sodium (Colace) 100 mg PO BID PRN PRN Reason: Constipation Ephedrine Sulfate (Ephedrine Sulfate) Confirm Administered Dose 50 mg .ROUTE .STK-MED ONE Stop: 03/31/19 13:06 Fentanyl (Sublimaze) Confirm Administered Dose 100 mcg .ROUTE .STK-MED ONE Stop: 03/31/19 11:13 Fentanyl (Fentanyl) 50 mcg IVPUSH ONETIME ONE Stop: 03/31/19 13:43 Last Admin: 03/31/19 15:12 Dose: Not Given Hydromorphone HCl (Dilaudid) 1 mg IV ONETIME ONE Stop: 03/30/19 10:06 Last Admin: 03/30/19 10:13 Dose: 1 mg Hydromorphone HCl (Dilaudid) 1 mg IVPUSH ONETIME ONE Stop: 03/30/19 12:10 Last Admin: 03/30/19 12:26 Dose: 1 mg Hydromorphone HCl (Dilaudid) 1 mg IVPUSH ONETIME ONE Stop: 03/30/19 14:05 Last Admin: 03/30/19 14:10 Dose: 1 mg Hydromorphone HCl (Dilaudid) Confirm Administered Dose 2 mg .ROUTE .STK-MED ONE Stop: 03/31/19 13:00 Hydromorphone HCl (Dilaudid) Confirm Administered Dose 2 mg .ROUTE .STK-MED ONE Stop: 03/31/19 14:51 Last Admin: 03/31/19 15:12 Dose: Not Given Hydromorphone HCl (Dilaudid) 2 mg IVPUSH ONETIME ONE Stop: 03/31/19 14:54 Last Admin: 03/31/19 14:51 Dose: 1 mg Clindamycin Phosphate 600 mg/ (Premix) 50 mls @ 92.593 mls/hr IV [facility] Tranexamic Acid 2,000 mg/ (Sodium Chloride) 120 mls @ 360 mls/hr IV ASDIRECTED ONE Stop: 03/30/19 11:47 Last Admin: 03/31/19 15:12 Dose: Not Given Ropivacaine 49.25 ml/Ketorolac Tromethamine 30 mg/Epinephrine HCl 0.5 mg/ Sodium Chloride 74.2 mls @ 50 mls/sec INJECT ASDIRECTED [facility] Stop: 03/30/19 11:31 Famotidine 40 mg/ Sodium (Chloride) 10 mls @ 300 mls/hr IV ONETIME ONE Stop: 03/30/19 11:46 Last Admin: 03/31/19 15:12 Dose: Not Given Ropivacaine 49.25 ml/Ketorolac Tromethamine 30 mg/Epinephrine HCl 0.5 mg/ Sodium Chloride 74.2 mls @ 50 mls/sec INJECT ASDIRECTED [facility] Acetaminophen (Ofirmev) Confirm Administered Dose 100 mls @ as directed .ROUTE .STK-MED ONE Stop: 03/31/19 11:17 Sodium Chloride (Normal Saline) Confirm Administered Dose 20 mls @ as directed .ROUTE .STK-MED ONE Stop: 03/31/19 13:06 Clindamycin Phosphate 600 mg/ (Premix) 50 mls @ 100 mls/hr IV Q8H [facility] Stop: 04/01/19 04:29 Last Admin: 04/01/19 03:29 Dose: 100 mls/hr Ketorolac Tromethamine (Toradol) 15 mg IVPUSH ONARRIVE [facility] Ketorolac Tromethamine (Toradol) Confirm Administered Dose 30 mg .ROUTE .STK- MED ONE Stop: 03/31/19 12:58 Ketorolac Tromethamine (Toradol) 30 mg IVPUSH Q6H [facility] Stop: 04/01/19 05:00 Last Admin: 04/01/19 01:02 Dose: 30 mg Lisinopril (Prinivil) 40 mg PO DAILY [facility] Last Admin: 03/31/19 17:42 Dose: Not Given Midazolam HCl (Versed 1 Mg/Ml) Confirm Administered Dose 2 mg .ROUTE .STK-MED ONE Stop: 03/31/19 11:13 Morphine Sulfate (Morphine) 4 mg IVPUSH ONETIME ONE Stop: 03/30/19 09:06 Last Admin: 03/30/19 09:09 Dose: 4 mg Morphine Sulfate (Morphine) 2 mg IVPUSH Q2H PRN PRN Reason: Pain Last Admin: 03/31/19 09:36 Dose: 2 mg Ondansetron HCl (Zofran) 4 mg IVPUSH ONETIME ONE Stop: 03/30/19 09:05 Last Admin: 03/30/19 09:09 Dose: 4 mg Ondansetron HCl (Zofran) 4 mg PO Q6H PRN PRN Reason: Nausea/Vomiting Ondansetron HCl (Zofran) Confirm Administered Dose 4 mg .ROUTE .STK-MED ONE Stop: 03/31/19 11:13 Potassium Chloride (Potassium Chloride) 40 meq PO ONETIME ONE Stop: 03/30/19 13:17 Last Admin: 03/30/19 16:31 Dose: Not Given Potassium Chloride (Potassium Chloride) 40 meq PO ONETIME ONE Stop: 03/30/19 16:01 Last Admin: 03/30/19 17:37 Dose: 40 meq Potassium Chloride (Klor-Con M20) 40 meq PO ONETIME ONE Stop: 03/31/19 16:45 Last Admin: 03/31/19 17:40 Dose: 40 meq Propofol (Diprivan 20 Ml) Confirm Administered Dose 400 mg .ROUTE .STK-MED ONE Stop: 03/31/19 11:13 Sodium Chloride (Saline Flush) 10 ml FLUSH ASDIRECTED PRN PRN Reason: Keep Vein Open Last Admin: 03/30/19 09:10 Dose: 10 ml Sodium Chloride (Saline Flush) 2.5 ml FLUSH ASDIRECTED PRN PRN Reason: Keep Vein Open Last Admin: 03/30/19 09:10 Dose: 2.5 ml Sugammadex Sodium ([place]) Confirm Administered Dose 200 mg .ROUTE .STK-MED ONE Stop: 03/31/19 14:09 Tranexamic Acid (Cyklokapron) Confirm Administered Dose 1,000 mg .ROUTE .STK- MED ONE Stop: 03/31/19 11:47 - Exam General: Alert, Oriented, Cooperative, No Acute Distress Lungs: Other (expiratory rhonchi in left lower lung.) Cardiovascular: Regular Rhythm, Tachycardia GI/Abdominal Exam: Normal Bowel Sounds, Soft, Non-Tender, No Distention Extremities: Normal Inspection, No Pedal Edema, Other (Left lower extremity: Immobilizier in place.) Skin: Warm, Dry, Intact Consult PN Assessment/Plan Problem List Initiated/Reviewed/Updated: Yes My Orders Last 24 Hours: My Active Orders 03/31/19 16:01 Code Status [Resuscitation Status] Routine 03/31/19 21:00 Rosuvastatin [Crestor] 20 mg PO BEDTIME Plan: Assessment: 1. Left femoral neck fracture s/p left hip gamma nail insertion POD #1. 2. Fever likely secondary to #1. 3. Leukocytosis likely secondary to #1. 4. Hypertension. 5. Hyperlipidemia. 6. Hypokalemia, resolved. Plan: 1. For left femoral neck fracture, management per orthopedic surgery. 2. For fever, will order UA and blood cultures. CXR was negative. Will give 1 dose of IV vancomycin at reduced rate. Will give 1 L NS bolus as patient tachycardic. LA was normal. Will continue to monitor. 3. For hypertension, patient's blood pressures well controlled at this time. Will hold anti-hypertensive medication at this time as to not drop his blood pressures too low. Will continue to monitor. 4. For hyperlipidemia, will continue home medication. 5. DVT prophylaxis and pain control per orthopedic surgery.
--- NOTE | 2019-04-01 10:07 | CR ---
INDICATION: Rhonchi TECHNIQUE: Two view chest. FINDINGS: The lungs are clear. The heart, mediastinum and pulmonary vessels are of normal size. There is no evidence of pleural disease. IMPRESSION: Negative chest. Dictated by Lotus Mancera MD @ Apr 01 2019 10:05AM Signed by Dr. Lotus Mancera @ Apr 01 2019 10:06AM
[2019-04-01] MEDS ORDERED: Sodium Chloride 0.9% 1,000 ML IV ONE (10:19)
--- NOTE | 2019-04-01 12:20 | PCM48HPAN ---
Post Anesthesia Note - EVALUATION WITHIN 48HRS OF ANESTHETIC Vital Signs in Normal Range: Yes Patient Participated in Evaluation: Yes Respiratory Function Stable: Yes Airway Patent: Yes Cardiovascular Function Stable: Yes Hydration Status Stable: Yes Pain Control Satisfactory: Yes (Some soreness but being controlled.) Nausea and Vomiting Control Satisfactory: No Mental Status Recovered: Yes Vital Signs: Last Vital Signs Temp 37.1 C 04/01/19 11:45 Pulse 91 04/01/19 11:45 Resp 18 04/01/19 11:45 BP 109/55 L 04/01/19 11:45 Pulse Ox 95 04/01/19 11:45 - COMMENTS/OBSERVATIONS Free Text/Narrative:: Doing well post-op.
[2019-04-01] MEDS: VANCOMYCIN/WATER FOR INJ (PEG) 1.5 GM in Premix Bag 1 BAG IV SCH (13:31)
--- NOTE | 2019-04-01 17:07 | CR ---
Left femur: Four fluoroscopic spot views of the left femur were obtained. Comparison: Previous pelvis and left hip exam of 03/30/19. Study shows placement of an intramedullary janie and compression screw affixing previous intertrochanteric fracture. Fluoroscopy time is given as 79.8 seconds. Impression: Procedural study as noted above. Diagnostic code #2 This report was dictated in [place] [employer] [facility]
[2019-04-01] MEDS: Rosuvastatin 10 MG Tab PO SCH (20:06)
[2019-04-02] MEDS: VANCOMYCIN/WATER FOR INJ (PEG) 1.5 GM in Premix Bag 1 BAG IV SCH ×2 (00:41→13:29)
[2019-04-02] MEDS: Morphine 2 MG/ML Syringe IVPUSH PRN ×3 (04:33→11:43)
[2019-04-02] MEDS: Gabapentin 300 MG Cap PO SCH ×3 (06:41→22:15)
[2019-04-02 06:56] LABS: BLOOD UREA NITROGEN,BUN 15 mg/dL (7.0-18.0); CARBON DIOXIDE,CO2 26.8 mmol/L (21.0-32.0); CHLORIDE,CL 105 mmol/L (98-107); GLUCOSE RANDOM 111 mg/dL (74-106); POTASSIUM,K 3.4 mmol/L (3.5-5.1); SODIUM,NA 140 mmol/L (136-148)
[2019-04-02] MEDS ORDERED: Potassium Chloride 20 MEQ Tab.ER PO ONE (07:49)
[2019-04-02] MEDS: Famotidine 20 MG Tab PO SCH (09:05)
[2019-04-02] MEDS: Acetaminophen/oxyCODONE 325-5 MG Tab PO PRN ×3 (09:06→23:15)
[2019-04-02] MEDS: Aspirin 325 MG Tab.EC PO SCH (09:06)
[2019-04-02] MEDS: Polyethylene Glycol 3350 Powder 17 GM Packet PO SCH (09:07)
--- NOTE | 2019-04-02 12:06 | US ---
EXAM DATE: 03/30/19 PATIENT'S AGE: 64 Bilateral lower extremity deep venous ultrasound: Duplex and color Doppler evaluation was obtained of the right and left common femoral, superficial Femoral, popliteal, posterior tibial and anterior tibial veins. Findings: Normal compression and augmentation is seen. Impression: 1. No evidence of deep venous thrombosis within the right or left lower extremities. Diagnostic code #1 This report was dictated in [place] [employer] Report Signed by Proxy. ALLISOND
--- NOTE | 2019-04-02 13:26 | PCM.CONSN ---
- General Info Date of Service: 04/02/19 Subjective Update: Denies shortness of breath, no bowel movement but is passing gas. Tolerating PO diet well. Reports pain on and off in left leg. - Patient Data Vitals - Most Recent: Last Vital Signs Temp 99.8 F 04/02/19 11:00 Pulse 93 04/02/19 11:00 Resp 18 04/02/19 11:00 BP 134/61 04/02/19 11:00 Pulse Ox 95 04/02/19 11:00 Weight - Most Recent: 215 lb I&O - Last 24 Hours: Intake & Output 04/01/19 04/02/19 04/02/19 22:59 06:59 14:59 Intake Total 1250 800 Output Total 850 1775 Balance 400 -975 Lab Results Last 24 Hours: Laboratory Results - last 24 hr 04/02/19 04/02/19 Range/Units 06:10 06:10 WBC 13.02 H (4.0-11.0) K/uL RBC 3.32 L (4.50-5.90) M/uL Hgb 10.5 L (13.0-17.0) g/dL Hct 30.7 L (38.0-50.0) % MCV 92.5 (80.0-98.0) fL MCH 31.6 (27.0-32.0) pg MCHC 34.2 (31.0-37.0) g/dL RDW Std Deviation 48.6 (28.0-62.0) fl RDW Coeff of Kalyn 14 (11.0-15.0) % Plt Count 190 (150-400) K/uL MPV 9.40 (7.40-12.00) fL Neut % (Auto) 71.3 (48.0-80.0) % Lymph % (Auto) 7.5 L (16.0-40.0) % [place] % (Auto) 18.0 H (0.0-15.0) % Eos % (Auto) 2.9 (0.0-7.0) % Baso % (Auto) 0.3 (0.0-1.5) % Neut # (Auto) 9.3 H (1.4-5.7) K/uL Lymph # (Auto) 1.0 (0.6-2.4) K/uL [place] # (Auto) 2.4 H (0.0-0.8) K/uL Eos # (Auto) 0.4 (0.0-0.7) K/uL Baso # (Auto) 0.0 (0.0-0.1) K/uL Nucleated RBC % 0.0 /100WBC Nucleated RBCs # 0 K/uL Sodium 140 (136-148) mmol/L Potassium 3.4 L (3.5-5.1) mmol/L Chloride 105 (98-107) mmol/L Carbon Dioxide 26.8 (21.0-32.0) mmol/L BUN 15 (7.0-18.0) mg/dL Creatinine 0.8 (0.8-1.3) mg/dL Est Cr Clr Drug Dosing 106.81 mL/min Estimated GFR (MDRD) > 60.0 ml/min Glucose 111 H (74-106) mg/dL Calcium 7.7 L (8.5-10.1) mg/dL Total Bilirubin 0.7 (0.2-1.0) mg/dL AST 19 (15-37) IU/L ALT 21 (14-63) IU/L Alkaline Phosphatase 38 L (46-116) U/L Total Protein 5.4 L (6.4-8.2) g/dL Albumin 2.7 L (3.4-5.0) g/dL Globulin 2.7 (2.6-4.0) g/dL Albumin/Globulin Ratio 1.0 (0.9-1.6) Ike Results Last 24 Hours: Microbiology 04/01/19 09:43 Aerobic Blood Culture - Preliminary Blood - Venous NO GROWTH AFTER 1 DAY Anaerobic Blood Culture - Preliminary NO GROWTH AFTER 1 DAY 04/01/19 09:49 Aerobic Blood Culture - Preliminary Blood - Venous - Lab Draw NO GROWTH AFTER 1 DAY Anaerobic Blood Culture - Preliminary NO GROWTH AFTER 1 DAY Med Orders - Current: Current Medications Al Hydroxide/Mg Hydroxide (Mag-Al Plus) 30 ml PO Q4H PRN PRN Reason: Indigestion Aspirin (Ecotrin) 325 mg PO DAILY [facility] Last Admin: 04/02/19 09:06 Dose: 325 mg Bisacodyl (Dulcolax) 10 mg RECTAL DAILY PRN PRN Reason: Constipation Diphenhydramine HCl (Benadryl) 25 - 50 mg PO Q6H PRN PRN Reason: Itching Docusate Sodium (Colace) 100 mg PO BID PRN PRN Reason: Constipation Famotidine (Pepcid) 40 mg PO DAILY [facility] Last Admin: 04/02/19 09:05 Dose: 40 mg Gabapentin (Neurontin) 300 mg PO TID [facility] Last Admin: 04/02/19 06:41 Dose: 300 mg Lactated Ringer's (Ringers, Lactated) 1,000 mls @ 75 mls/hr IV ASDIRECTED [facility] Last Admin: 03/31/19 11:57 Dose: 75 mls/hr Vancomycin HCl 1.5 gm/ Premix 300 mls @ 150 mls/hr IV Q12H [facility] Last Admin: 04/02/19 00:41 Dose: 150 mls/hr Morphine Sulfate (Morphine) 1 - 2 mg IVPUSH Q3H PRN PRN Reason: Pain Last Admin: 04/02/19 11:43 Dose: 2 mg Ondansetron HCl (Zofran) 4 mg IVPUSH Q6H PRN PRN Reason: Nausea/Vomiting Oxycodone/Acetaminophen (Percocet 325-5 Mg) 1 tab PO QID PRN PRN Reason: Pain Last Admin: 04/02/19 09:06 Dose: 1 tab Polyethylene Glycol (Miralax) 17 gm PO DAILY [facility] Last Admin: 04/02/19 09:07 Dose: 17 gm Rosuvastatin Calcium (Crestor) 20 mg PO BEDTIME [facility] Last Admin: 04/01/19 20:06 Dose: 20 mg Scopolamine (Transderm-Scop) 1.5 mg TRDERM ONARRIVE [facility] Sodium Chloride (Saline Flush) 10 ml FLUSH ASDIRECTED PRN PRN Reason: Keep Vein Open Sodium Chloride (Saline Flush) 2.5 ml FLUSH ASDIRECTED PRN PRN Reason: Keep Vein Open Discontinued Medications Hydrocodone Bitart/Acetaminophen ([place] 325-5 Mg) 1 - 2 tab PO Q4H PRN PRN Reason: Pain Last Admin: 03/30/19 17:41 Dose: 2 tab Amlodipine Besylate (Norvasc) 10 mg PO DAILY [facility] Last Admin: 03/31/19 21:11 Dose: 10 mg Aspirin (Aspirin) 325 mg PO DAILY [facility] Last Admin: 04/01/19 08:06 Dose: 325 mg Chlorthalidone (Chlorthalidone) 25 mg PO DAILY [facility] Docusate Sodium (Colace) 100 mg PO BID PRN PRN Reason: Constipation Ephedrine Sulfate (Ephedrine Sulfate) Confirm Administered Dose 50 mg .ROUTE .STK-MED ONE Stop: 03/31/19 13:06 Fentanyl (Sublimaze) Confirm Administered Dose 100 mcg .ROUTE .STK-MED ONE Stop: 03/31/19 11:13 Fentanyl (Fentanyl) 50 mcg IVPUSH ONETIME ONE Stop: 03/31/19 13:43 Last Admin: 03/31/19 15:12 Dose: Not Given Hydromorphone HCl (Dilaudid) 1 mg IV ONETIME ONE Stop: 03/30/19 10:06 Last Admin: 03/30/19 10:13 Dose: 1 mg Hydromorphone HCl (Dilaudid) 1 mg IVPUSH ONETIME ONE Stop: 03/30/19 12:10 Last Admin: 03/30/19 12:26 Dose: 1 mg Hydromorphone HCl (Dilaudid) 1 mg IVPUSH ONETIME ONE Stop: 03/30/19 14:05 Last Admin: 03/30/19 14:10 Dose: 1 mg Hydromorphone HCl (Dilaudid) Confirm Administered Dose 2 mg .ROUTE .STK-MED ONE Stop: 03/31/19 13:00 Hydromorphone HCl (Dilaudid) Confirm Administered Dose 2 mg .ROUTE .STK-MED ONE Stop: 03/31/19 14:51 Last Admin: 03/31/19 15:12 Dose: Not Given Hydromorphone HCl (Dilaudid) 2 mg IVPUSH ONETIME ONE Stop: 03/31/19 14:54 Last Admin: 03/31/19 14:51 Dose: 1 mg Clindamycin Phosphate 600 mg/ (Premix) 50 mls @ 92.593 mls/hr IV ONCALL [facility] Tranexamic Acid 2,000 mg/ (Sodium Chloride) 120 mls @ 360 mls/hr IV ASDIRECTED ONE Stop: 03/30/19 11:47 Last Admin: 03/31/19 15:12 Dose: Not Given Ropivacaine 49.25 ml/Ketorolac Tromethamine 30 mg/Epinephrine HCl 0.5 mg/ Sodium Chloride 74.2 mls @ 50 mls/sec INJECT ASDIRECTED [facility] Stop: 03/30/19 11:31 Famotidine 40 mg/ Sodium (Chloride) 10 mls @ 300 mls/hr IV ONETIME ONE Stop: 03/30/19 11:46 Last Admin: 03/31/19 15:12 Dose: Not Given Ropivacaine 49.25 ml/Ketorolac Tromethamine 30 mg/Epinephrine HCl 0.5 mg/ Sodium Chloride 74.2 mls @ 50 mls/sec INJECT ASDIRECTED [facility] Acetaminophen (Ofirmev) Confirm Administered Dose 100 mls @ as directed .ROUTE .STK-MED ONE Stop: 03/31/19 11:17 Sodium Chloride (Normal Saline) Confirm Administered Dose 20 mls @ as directed .ROUTE .STK-MED ONE Stop: 03/31/19 13:06 Clindamycin Phosphate 600 mg/ (Premix) 50 mls @ 100 mls/hr IV Q8H [facility] Stop: 04/01/19 04:29 Last Admin: 04/01/19 03:29 Dose: 100 mls/hr Sodium Chloride (Normal Saline) 1,000 mls @ 999 mls/hr IV .Bolus ONE Stop: 04/01/19 11:19 Last Admin: 04/01/19 10:31 Dose: 999 mls/hr Ketorolac Tromethamine (Toradol) 15 mg IVPUSH ONARRIVE [facility] Ketorolac Tromethamine (Toradol) Confirm Administered Dose 30 mg .ROUTE .STK- MED ONE Stop: 03/31/19 12:58 Ketorolac Tromethamine (Toradol) 30 mg IVPUSH Q6H [facility] Stop: 04/01/19 05:00 Last Admin: 04/01/19 01:02 Dose: 30 mg Lisinopril (Prinivil) 40 mg PO DAILY [facility] Last Admin: 03/31/19 17:42 Dose: Not Given Midazolam HCl (Versed 1 Mg/Ml) Confirm Administered Dose 2 mg .ROUTE .STK-MED ONE Stop: 03/31/19 11:13 Morphine Sulfate (Morphine) 4 mg IVPUSH ONETIME ONE Stop: 03/30/19 09:06 Last Admin: 03/30/19 09:09 Dose: 4 mg Morphine Sulfate (Morphine) 2 mg IVPUSH Q2H PRN PRN Reason: Pain Last Admin: 03/31/19 09:36 Dose: 2 mg Ondansetron HCl (Zofran) 4 mg IVPUSH ONETIME ONE Stop: 03/30/19 09:05 Last Admin: 03/30/19 09:09 Dose: 4 mg Ondansetron HCl (Zofran) 4 mg PO Q6H PRN PRN Reason: Nausea/Vomiting Ondansetron HCl (Zofran) Confirm Administered Dose 4 mg .ROUTE .STK-MED ONE Stop: 03/31/19 11:13 Potassium Chloride (Potassium Chloride) 40 meq PO ONETIME ONE Stop: 03/30/19 13:17 Last Admin: 03/30/19 16:31 Dose: Not Given Potassium Chloride (Potassium Chloride) 40 meq PO ONETIME ONE Stop: 03/30/19 16:01 Last Admin: 03/30/19 17:37 Dose: 40 meq Potassium Chloride (Klor-Con M20) 40 meq PO ONETIME ONE Stop: 03/31/19 16:45 Last Admin: 03/31/19 17:40 Dose: 40 meq Potassium Chloride (Klor-Con M20) 40 meq PO ONETIME ONE Stop: 04/02/19 07:50 Last Admin: 04/02/19 09:14 Dose: 40 meq Propofol (Diprivan 20 Ml) Confirm Administered Dose 400 mg .ROUTE .STK-MED ONE Stop: 03/31/19 11:13 Sodium Chloride (Saline Flush) 10 ml FLUSH ASDIRECTED PRN PRN Reason: Keep Vein Open Last Admin: 03/30/19 09:10 Dose: 10 ml Sodium Chloride (Saline Flush) 2.5 ml FLUSH ASDIRECTED PRN PRN Reason: Keep Vein Open Last Admin: 03/30/19 09:10 Dose: 2.5 ml Sugammadex Sodium ([place]) Confirm Administered Dose 200 mg .ROUTE .STK-MED ONE Stop: 03/31/19 14:09 Tranexamic Acid (Cyklokapron) Confirm Administered Dose 1,000 mg .ROUTE .STK- MED ONE Stop: 03/31/19 11:47 Vancomycin HCl (Pharmacy To Dose - Vancomycin) 1 dose .XX ONETIME ONE Stop: 04/01/19 12:09 Last Admin: 04/01/19 15:39 Dose: Not Given Vancomycin HCl (Pharmacy To Dose - Vancomycin) 1 dose .XX ASDIRECTED [facility] - Exam General: Alert, Oriented, Cooperative, No Acute Distress Lungs: Clear to Auscultation, Normal Respiratory Effort Cardiovascular: Regular Rate, Regular Rhythm Extremities: Other (Incision site is c/d/i. ) Consult PN Assessment/Plan Procedures: Procedures ALANINE AMINO (ALT) (SGPT) (09/16/15) APPLY LONG ARM SPLINT (06/15/17) ASSAY OF LACTIC ACID (03/16/16) ASSAY OF VANCOMYCIN (03/25/16) ASSAY THYROID STIM HORMONE (08/07/18) COLLECT BLOOD FROM PICC (03/25/16) COMPLETE CBC AUTOMATED (08/07/18) COMPLETE CBC W/AUTO DIFF WBC (11/05/18) COMPREHEN METABOLIC PANEL (11/05/18) CT ABD & PELV W/CONTRAST (03/16/16) CT LUMBAR SPINE W/DYE (08/29/16) CULTURE OTHR SPECIMN AEROBIC (03/16/16) DRUG SCRN 1+ CLASS NONCHROMO (08/07/13) DRUG TEST PRSMV DIR OPT OBS (02/18/19) DXA BONE DENSITY AXIAL (09/14/16) ELECTROCARDIOGRAM TRACING (03/16/16) EMERGENCY DEPT VISIT (04/27/18) EMERGENCY DEPT VISIT (06/15/17) FLUOROGUIDE FOR VEIN DEVICE (03/20/16) HEPATIC FUNCTION PANEL (10/23/18) HEPATITIS C AB TEST (09/06/17) IMMUNIZATION ADMIN (03/16/16) INJ FORAMEN EPIDURAL L/S (06/04/14) INJECT SPINE CERV/THORACIC (06/04/14) INJECTION FOR MYELOGRAM (08/29/16) INSERT TEMP BLADDER CATH (04/27/18) INSJ PICC 5 YR+ W/O IMAGING (03/20/16) LIPID PANEL (09/06/17) METABOLIC PANEL TOTAL CA (10/23/18) MRI CHEST SPINE W/O DYE (08/05/14) MRI JNT OF LWR EXTRE W/O DYE (07/19/17) MRI LUMBAR SPINE W/O DYE (10/30/18) MYELOGRAPHY L-S SPINE (08/29/16) NJX INTERLAMINAR LMBR/SAC (07/18/16) OPIATES 1 OR MORE (02/07/19) PRP I/ZE INIT BLOCK >5 YR (03/16/16) ROUTINE VENIPUNCTURE (11/05/18) THER/PROPH/DIAG INJ IV PUSH (03/25/16) THER/PROPH/DIAG INJ SC/IM (03/16/16) THER/PROPH/DIAG IV INF ADDON (03/25/16) THER/PROPH/DIAG IV INF INIT (03/25/16) TISSUE EXAM BY PATHOLOGIST (03/16/16) TTE W/DOPPLER COMPLETE (11/18/18) TX/PRO/DX INJ NEW DRUG ADDON (03/16/16) TX/PRO/DX INJ SAME DRUG HISTOTECHNOLOGIST (03/16/16) TX/PROPH/DG ADDL SEQ IV INF (03/16/16) URINALYSIS AUTO W/O SCOPE (11/05/18) URINALYSIS AUTO W/SCOPE (04/27/18) URINE CULTURE/COLONY COUNT (04/27/18) US GUIDE VASCULAR ACCESS (03/20/16) US URINE CAPACITY MEASURE (04/27/18) X-RAY EXAM ABDOMEN 2 VIEWS (04/27/18) X-RAY EXAM HIP UNI 2-3 VIEWS (11/29/15) X-RAY EXAM L-2 SPINE 4/>VWS (08/29/16) X-RAY EXAM OF HIP (05/11/14) X-RAY EXAM OF HUMERUS (06/15/17) X-RAY EXAM OF KNEE 1 OR 2 (07/25/17) X-RAY EXAM OF SHOULDER (06/15/17) X-RAY EXAM OF SINUSES (09/25/13) Problem List Initiated/Reviewed/Updated: Yes My Orders Last 24 Hours: My Active Orders 04/01/19 12:30 Vancomycin/Water For Inj (Peg) [Vancomycin 1.5 GM/300 ML Bag] 1.5 gm Premix Bag 1 bag IV Q12H 04/03/19 00:00 VANCOMYCIN TROUGH [CHEM] Routine Plan: Assessment: 1. Left femoral neck fracture s/p left hip gamma nail insertion POD #2. 2. Fever likely secondary to #1. 3. Leukocytosis likely secondary to #1. 4. Hypertension. 5. Hyperlipidemia. 6. Hypokalemia. Plan: 1. For left femoral neck fracture, management per orthopedic surgery. 2. For fever, blood cultures negative @ 1 day. CXR was negative. UA is pending. Will continue IV vancomycin at reduced rate. Will continue to monitor. Encourage incentive spirometer use. 3. For hypertension, patient's anti-hypertensive medication held at this time. Will continue to monitor and resume when appropriate. 4. For hyperlipidemia, will continue home medication. 5. For hypokalemia, will replete with 40 mEq KCl PO x 1. 6. DVT prophylaxis and pain control per orthopedic surgery.
--- NOTE | 2019-04-02 16:22 | PCM.PN ---
- General Info Date of Service: 04/02/19 Admission Dx/Problem (Free Text): Admission Diagnosis/Problem Admission Diagnosis/Problem Hip fracture requiring operative repair Functional Status: Reports: Pain Controlled, Tolerating Diet, Ambulating, Urinating - Review of Systems General: Reports: No Symptoms HEENT: Reports: No Symptoms Pulmonary: Reports: No Symptoms Cardiovascular: Reports: No Symptoms Gastrointestinal: Reports: No Symptoms Genitourinary: Reports: No Symptoms Musculoskeletal: Reports: Leg Pain, Joint Pain, Joint Swelling Skin: Reports: No Symptoms Neurological: Reports: No Symptoms Psychiatric: Reports: No Symptoms - Patient Data Vitals - Most Recent: Last Vital Signs Temp 36.9 C 04/02/19 15:00 Pulse 100 04/02/19 15:00 Resp 18 04/02/19 15:00 BP 130/59 L 04/02/19 15:00 Pulse Ox 94 L 04/02/19 15:00 Weight - Most Recent: 97.522 kg I&O - Last 24 Hours: Intake & Output 04/02/19 04/02/19 04/02/19 06:59 14:59 22:59 Intake Total 800 Output Total 1775 Balance -975 Lab Results Last 24 Hours: Laboratory Results - last 24 hr 04/02/19 04/02/19 Range/Units 06:10 06:10 WBC 13.02 H (4.0-11.0) K/uL RBC 3.32 L (4.50-5.90) M/uL Hgb 10.5 L (13.0-17.0) g/dL Hct 30.7 L (38.0-50.0) % MCV 92.5 (80.0-98.0) fL MCH 31.6 (27.0-32.0) pg MCHC 34.2 (31.0-37.0) g/dL RDW Std Deviation 48.6 (28.0-62.0) fl RDW Coeff of Kalyn 14 (11.0-15.0) % Plt Count 190 (150-400) K/uL MPV 9.40 (7.40-12.00) fL Neut % (Auto) 71.3 (48.0-80.0) % Lymph % (Auto) 7.5 L (16.0-40.0) % Cassia % (Auto) 18.0 H (0.0-15.0) % Eos % (Auto) 2.9 (0.0-7.0) % Baso % (Auto) 0.3 (0.0-1.5) % Neut # (Auto) 9.3 H (1.4-5.7) K/uL Lymph # (Auto) 1.0 (0.6-2.4) K/uL [place]ia # (Auto) 2.4 H (0.0-0.8) K/uL Eos # (Auto) 0.4 (0.0-0.7) K/uL Baso # (Auto) 0.0 (0.0-0.1) K/uL Nucleated RBC % 0.0 /100WBC Nucleated RBCs # 0 K/uL Sodium 140 (136-148) mmol/L Potassium 3.4 L (3.5-5.1) mmol/L Chloride 105 (98-107) mmol/L Carbon Dioxide 26.8 (21.0-32.0) mmol/L BUN 15 (7.0-18.0) mg/dL Creatinine 0.8 (0.8-1.3) mg/dL Est Cr Clr Drug Dosing 106.81 mL/min Estimated GFR (MDRD) > 60.0 ml/min Glucose 111 H (74-106) mg/dL Calcium 7.7 L (8.5-10.1) mg/dL Total Bilirubin 0.7 (0.2-1.0) mg/dL AST 19 (15-37) IU/L ALT 21 (14-63) IU/L Alkaline Phosphatase 38 L (46-116) U/L Total Protein 5.4 L (6.4-8.2) g/dL Albumin 2.7 L (3.4-5.0) g/dL Globulin 2.7 (2.6-4.0) g/dL Albumin/Globulin Ratio 1.0 (0.9-1.6) Ike Results Last 24 Hours: Microbiology 04/01/19 09:43 Aerobic Blood Culture - Preliminary Blood - Venous NO GROWTH AFTER 1 DAY Anaerobic Blood Culture - Preliminary NO GROWTH AFTER 1 DAY 04/01/19 09:49 Aerobic Blood Culture - Preliminary Blood - Venous - Lab Draw NO GROWTH AFTER 1 DAY Anaerobic Blood Culture - Preliminary NO GROWTH AFTER 1 DAY Med Orders - Current: Current Medications Al Hydroxide/Mg Hydroxide (Mag-Al Plus) 30 ml PO Q4H PRN PRN Reason: Indigestion Aspirin (Ecotrin) 325 mg PO DAILY [facility] Last Admin: 04/02/19 09:06 Dose: 325 mg Bisacodyl (Dulcolax) 10 mg RECTAL DAILY PRN PRN Reason: Constipation Diphenhydramine HCl (Benadryl) 25 - 50 mg PO Q6H PRN PRN Reason: Itching Docusate Sodium (Colace) 100 mg PO BID PRN PRN Reason: Constipation Famotidine (Pepcid) 40 mg PO DAILY [facility] Last Admin: 04/02/19 09:05 Dose: 40 mg Gabapentin (Neurontin) 300 mg PO TID [facility] Last Admin: 04/02/19 13:29 Dose: 300 mg Lactated Ringer's (Ringers, Lactated) 1,000 mls @ 75 mls/hr IV ASDIRECTED [facility] Last Admin: 03/31/19 11:57 Dose: 75 mls/hr Vancomycin HCl 1.5 gm/ Premix 300 mls @ 150 mls/hr IV Q12H [facility] Last Admin: 04/02/19 13:29 Dose: 150 mls/hr Morphine Sulfate (Morphine) 1 - 2 mg IVPUSH Q3H PRN PRN Reason: Pain Last Admin: 04/02/19 11:43 Dose: 2 mg Ondansetron HCl (Zofran) 4 mg IVPUSH Q6H PRN PRN Reason: Nausea/Vomiting Oxycodone/Acetaminophen (Percocet 325-5 Mg) 1 tab PO QID PRN PRN Reason: Pain Last Admin: 04/02/19 16:12 Dose: 1 tab Polyethylene Glycol (Miralax) 17 gm PO DAILY [facility] Last Admin: 04/02/19 09:07 Dose: 17 gm Rosuvastatin Calcium (Crestor) 20 mg PO BEDTIME [facility] Last Admin: 04/01/19 20:06 Dose: 20 mg Scopolamine (Transderm-Scop) 1.5 mg TRDERM ONARRIVE [facility] Sodium Chloride (Saline Flush) 10 ml FLUSH ASDIRECTED PRN PRN Reason: Keep Vein Open Sodium Chloride (Saline Flush) 2.5 ml FLUSH ASDIRECTED PRN PRN Reason: Keep Vein Open Discontinued Medications Hydrocodone Bitart/Acetaminophen ([place] 325-5 Mg) 1 - 2 tab PO Q4H PRN PRN Reason: Pain Last Admin: 03/30/19 17:41 Dose: 2 tab Amlodipine Besylate (Norvasc) 10 mg PO DAILY [facility] Last Admin: 03/31/19 21:11 Dose: 10 mg Aspirin (Aspirin) 325 mg PO DAILY [facility] Last Admin: 04/01/19 08:06 Dose: 325 mg Chlorthalidone (Chlorthalidone) 25 mg PO DAILY [facility] Docusate Sodium (Colace) 100 mg PO BID PRN PRN Reason: Constipation Ephedrine Sulfate (Ephedrine Sulfate) Confirm Administered Dose 50 mg .ROUTE .STK-MED ONE Stop: 03/31/19 13:06 Fentanyl (Sublimaze) Confirm Administered Dose 100 mcg .ROUTE .STK-MED ONE Stop: 03/31/19 11:13 Fentanyl (Fentanyl) 50 mcg IVPUSH ONETIME ONE Stop: 03/31/19 13:43 Last Admin: 03/31/19 15:12 Dose: Not Given Hydromorphone HCl (Dilaudid) 1 mg IV ONETIME ONE Stop: 03/30/19 10:06 Last Admin: 03/30/19 10:13 Dose: 1 mg Hydromorphone HCl (Dilaudid) 1 mg IVPUSH ONETIME ONE Stop: 03/30/19 12:10 Last Admin: 03/30/19 12:26 Dose: 1 mg Hydromorphone HCl (Dilaudid) 1 mg IVPUSH ONETIME ONE Stop: 03/30/19 14:05 Last Admin: 03/30/19 14:10 Dose: 1 mg Hydromorphone HCl (Dilaudid) Confirm Administered Dose 2 mg .ROUTE .STK-MED ONE Stop: 03/31/19 13:00 Hydromorphone HCl (Dilaudid) Confirm Administered Dose 2 mg .ROUTE .STK-MED ONE Stop: 03/31/19 14:51 Last Admin: 03/31/19 15:12 Dose: Not Given Hydromorphone HCl (Dilaudid) 2 mg IVPUSH ONETIME ONE Stop: 03/31/19 14:54 Last Admin: 03/31/19 14:51 Dose: 1 mg Clindamycin Phosphate 600 mg/ (Premix) 50 mls @ 92.593 mls/hr IV ONCALL [facility] Tranexamic Acid 2,000 mg/ (Sodium Chloride) 120 mls @ 360 mls/hr IV ASDIRECTED ONE Stop: 03/30/19 11:47 Last Admin: 03/31/19 15:12 Dose: Not Given Ropivacaine 49.25 ml/Ketorolac Tromethamine 30 mg/Epinephrine HCl 0.5 mg/ Sodium Chloride 74.2 mls @ 50 mls/sec INJECT ASDIRECTED [facility] Stop: 03/30/19 11:31 Famotidine 40 mg/ Sodium (Chloride) 10 mls @ 300 mls/hr IV ONETIME ONE Stop: 03/30/19 11:46 Last Admin: 03/31/19 15:12 Dose: Not Given Ropivacaine 49.25 ml/Ketorolac Tromethamine 30 mg/Epinephrine HCl 0.5 mg/ Sodium Chloride 74.2 mls @ 50 mls/sec INJECT ASDIRECTED [facility] Acetaminophen (Ofirmev) Confirm Administered Dose 100 mls @ as directed .ROUTE .STK-MED ONE Stop: 03/31/19 11:17 Sodium Chloride (Normal Saline) Confirm Administered Dose 20 mls @ as directed .ROUTE .STK-MED ONE Stop: 03/31/19 13:06 Clindamycin Phosphate 600 mg/ (Premix) 50 mls @ 100 mls/hr IV Q8H [facility] Stop: 04/01/19 04:29 Last Admin: 04/01/19 03:29 Dose: 100 mls/hr Sodium Chloride (Normal Saline) 1,000 mls @ 999 mls/hr IV .Bolus ONE Stop: 04/01/19 11:19 Last Admin: 04/01/19 10:31 Dose: 999 mls/hr Ketorolac Tromethamine (Toradol) 15 mg IVPUSH ONARRIVE [facility] Ketorolac Tromethamine (Toradol) Confirm Administered Dose 30 mg .ROUTE .STK- MED ONE Stop: 03/31/19 12:58 Ketorolac Tromethamine (Toradol) 30 mg IVPUSH Q6H [facility] Stop: 04/01/19 05:00 Last Admin: 04/01/19 01:02 Dose: 30 mg Lisinopril (Prinivil) 40 mg PO DAILY [facility] Last Admin: 03/31/19 17:42 Dose: Not Given Midazolam HCl (Versed 1 Mg/Ml) Confirm Administered Dose 2 mg .ROUTE .STK-MED ONE Stop: 03/31/19 11:13 Morphine Sulfate (Morphine) 4 mg IVPUSH ONETIME ONE Stop: 03/30/19 09:06 Last Admin: 03/30/19 09:09 Dose: 4 mg Morphine Sulfate (Morphine) 2 mg IVPUSH Q2H PRN PRN Reason: Pain Last Admin: 03/31/19 09:36 Dose: 2 mg Ondansetron HCl (Zofran) 4 mg IVPUSH ONETIME ONE Stop: 03/30/19 09:05 Last Admin: 03/30/19 09:09 Dose: 4 mg Ondansetron HCl (Zofran) 4 mg PO Q6H PRN PRN Reason: Nausea/Vomiting Ondansetron HCl (Zofran) Confirm Administered Dose 4 mg .ROUTE .STK-MED ONE Stop: 03/31/19 11:13 Potassium Chloride (Potassium Chloride) 40 meq PO ONETIME ONE Stop: 03/30/19 13:17 Last Admin: 03/30/19 16:31 Dose: Not Given Potassium Chloride (Potassium Chloride) 40 meq PO ONETIME ONE Stop: 03/30/19 16:01 Last Admin: 03/30/19 17:37 Dose: 40 meq Potassium Chloride (Klor-Con M20) 40 meq PO ONETIME ONE Stop: 03/31/19 16:45 Last Admin: 03/31/19 17:40 Dose: 40 meq Potassium Chloride (Klor-Con M20) 40 meq PO ONETIME ONE Stop: 04/02/19 07:50 Last Admin: 04/02/19 09:14 Dose: 40 meq Propofol (Diprivan 20 Ml) Confirm Administered Dose 400 mg .ROUTE .STK-MED ONE Stop: 03/31/19 11:13 Sodium Chloride (Saline Flush) 10 ml FLUSH ASDIRECTED PRN PRN Reason: Keep Vein Open Last Admin: 03/30/19 09:10 Dose: 10 ml Sodium Chloride (Saline Flush) 2.5 ml FLUSH ASDIRECTED PRN PRN Reason: Keep Vein Open Last Admin: 03/30/19 09:10 Dose: 2.5 ml Sugammadex Sodium (Bridion) Confirm Administered Dose 200 mg .ROUTE .STK-MED ONE Stop: 03/31/19 14:09 Tranexamic Acid (Cyklokapron) Confirm Administered Dose 1,000 mg .ROUTE .STK- MED ONE Stop: 03/31/19 11:47 Vancomycin HCl (Pharmacy To Dose - Vancomycin) 1 dose .XX ONETIME ONE Stop: 04/01/19 12:09 Last Admin: 04/01/19 15:39 Dose: Not Given Vancomycin HCl (Pharmacy To Dose - Vancomycin) 1 dose .XX ASDIRECTED NILSON - Exam Quality Assessment: DVT Prophylaxis General: Alert, Oriented, Cooperative, Mild Distress HEENT: Pupils Equal, Pupils Reactive, EOMI, Mucous Membr. Moist/[place] Neck: Supple, Trachea Midline Lungs: Normal Respiratory Effort Extremities: Joint Swelling, Leg Pain, Limited Range of Motion Peripheral Pulses: 2+: Dorsalis Pedis (L) Skin: Warm, Dry, Intact Wound/Incisions: Healing Well, Dressing Dry and Intact, No Drainage Neurological: No New Focal Deficit Psy/Mental Status: Alert, Normal Affect, Normal Mood - Problem List & Annotations (1) Fracture, intertrochanteric, left femur SNOMED Code(s): 179491623 Code(s): S72.142A - DISPLACED INTERTROCHANTERIC FRACTURE OF LEFT FEMUR, INIT Status: Acute Current Visit: Yes Qualifiers: Encounter type: initial encounter Fracture type: closed Fracture alignment: displaced Qualified Code(s): S72.142A - Displaced intertrochanteric fracture of left femur, initial encounter for closed fracture - Problem List Review Problem List Initiated/Reviewed/Updated: Yes - Plan Plan:: A: POD 2 left hip cephallomedullary nail, was able to ambulate a few steps in rees. will try again this evening. P: pt/ot, dvt prophylaxis, pain control
[2019-04-02] MEDS: Rosuvastatin 10 MG Tab PO SCH (22:15)
[2019-04-03] MEDS: VANCOMYCIN/WATER FOR INJ (PEG) 1.5 GM in Premix Bag 1 BAG IV SCH ×3 (01:49→08:40)
[2019-04-03] MEDS: Morphine 2 MG/ML Syringe IVPUSH PRN ×5 (05:02→23:21)
[2019-04-03] MEDS: Gabapentin 300 MG Cap PO SCH ×3 (06:09→22:41)
[2019-04-03 07:31] LABS: BLOOD UREA NITROGEN,BUN 15 mg/dL (7.0-18.0); CHLORIDE,CL 106 mmol/L (98-107); GLUCOSE RANDOM 110 mg/dL (74-106); POTASSIUM,K 3.7 mmol/L (3.5-5.1); SODIUM,NA 141 mmol/L (136-148)
[2019-04-03] MEDS: Aspirin 325 MG Tab.EC PO SCH (08:32)
[2019-04-03] MEDS: Famotidine 20 MG Tab PO SCH (08:32)
[2019-04-03] MEDS: Polyethylene Glycol 3350 Powder 17 GM Packet PO SCH (08:32)
[2019-04-03] MEDS: Acetaminophen/oxyCODONE 325-5 MG Tab PO PRN ×3 (08:32→20:15)
--- NOTE | 2019-04-03 12:16 | PCM.CONSN ---
- General Info Date of Service: 04/03/19 Subjective Update: Afebrile overnight. No complaints at bedside this morning. No bowel movement but is passing gas. - Patient Data Vitals - Most Recent: Last Vital Signs Temp 99.1 F 04/03/19 08:00 Pulse 92 04/03/19 08:00 Resp 17 04/03/19 08:00 BP 140/64 04/03/19 08:00 Pulse Ox 95 04/03/19 08:00 Weight - Most Recent: 215 lb I&O - Last 24 Hours: Intake & Output 04/02/19 04/03/19 04/03/19 22:59 06:59 14:59 Intake Total 1120 1050 Output Total 975 900 Balance 145 150 Lab Results Last 24 Hours: Laboratory Results - last 24 hr 04/03/19 04/03/19 04/03/19 Range/Units 00:30 07:05 07:05 WBC 11.48 H (4.0-11.0) K/uL RBC 3.13 L (4.50-5.90) M/uL Hgb 9.9 L (13.0-17.0) g/dL Hct 29.0 L (38.0-50.0) % MCV 92.7 (80.0-98.0) fL MCH 31.6 (27.0-32.0) pg MCHC 34.1 (31.0-37.0) g/dL RDW Std Deviation 48.4 (28.0-62.0) fl RDW Coeff of Kalyn 14 (11.0-15.0) % Plt Count 222 (150-400) K/uL MPV 9.00 (7.40-12.00) fL Neut % (Auto) 72.5 (48.0-80.0) % Lymph % (Auto) 9.8 L (16.0-40.0) % [place] % (Auto) 12.9 (0.0-15.0) % Eos % (Auto) 4.5 (0.0-7.0) % Baso % (Auto) 0.3 (0.0-1.5) % Neut # (Auto) 8.3 H (1.4-5.7) K/uL Lymph # (Auto) 1.1 (0.6-2.4) K/uL [place] # (Auto) 1.5 H (0.0-0.8) K/uL Eos # (Auto) 0.5 (0.0-0.7) K/uL Baso # (Auto) 0.0 (0.0-0.1) K/uL Nucleated RBC % 0.0 /100WBC Nucleated RBCs # 0 K/uL Sodium 141 (136-148) mmol/L Potassium 3.7 (3.5-5.1) mmol/L Chloride 106 (98-107) mmol/L Carbon Dioxide 27.0 (21.0-32.0) mmol/L BUN 15 (7.0-18.0) mg/dL Creatinine 0.8 (0.8-1.3) mg/dL Est Cr Clr Drug Dosing 106.81 mL/min Estimated GFR (MDRD) > 60.0 ml/min Glucose 110 H (74-106) mg/dL Calcium 7.9 L (8.5-10.1) mg/dL Total Bilirubin 0.5 (0.2-1.0) mg/dL AST 21 (15-37) IU/L ALT 23 (14-63) IU/L Alkaline Phosphatase 43 L (46-116) U/L Total Protein 6.1 L (6.4-8.2) g/dL Albumin 2.5 L (3.4-5.0) g/dL Globulin 3.6 (2.6-4.0) g/dL Albumin/Globulin Ratio 0.7 L (0.9-1.6) Vancomycin Trough 6.6 (5.0-10.0) ug/mL I[facility] Results Last 24 Hours: Microbiology 04/01/19 09:49 Aerobic Blood Culture - Preliminary Blood - Venous - Lab Draw NO GROWTH AFTER 2 DAYS Anaerobic Blood Culture - Preliminary NO GROWTH AFTER 2 DAYS 04/01/19 09:43 Aerobic Blood Culture - Preliminary Blood - Venous NO GROWTH AFTER 2 DAYS Anaerobic Blood Culture - Preliminary NO GROWTH AFTER 2 DAYS Med Orders - Current: Current Medications Al Hydroxide/Mg Hydroxide (Mag-Al Plus) 30 ml PO Q4H PRN PRN Reason: Indigestion Aspirin (Ecotrin) 325 mg PO DAILY [facility] Last Admin: 04/03/19 08:32 Dose: 325 mg Bisacodyl (Dulcolax) 10 mg RECTAL DAILY PRN PRN Reason: Constipation Diphenhydramine HCl (Benadryl) 25 - 50 mg PO Q6H PRN PRN Reason: Itching Docusate Sodium (Colace) 100 mg PO BID PRN PRN Reason: Constipation Famotidine (Pepcid) 40 mg PO DAILY [facility] Last Admin: 04/03/19 08:32 Dose: 40 mg Gabapentin (Neurontin) 300 mg PO TID [facility] Last Admin: 04/03/19 06:09 Dose: 300 mg Morphine Sulfate (Morphine) 1 - 2 mg IVPUSH Q3H PRN PRN Reason: Pain Last Admin: 04/03/19 10:36 Dose: 2 mg Ondansetron HCl (Zofran) 4 mg IVPUSH Q6H PRN PRN Reason: Nausea/Vomiting Oxycodone/Acetaminophen (Percocet 325-5 Mg) 1 tab PO QID PRN PRN Reason: Pain Last Admin: 04/03/19 08:32 Dose: 1 tab Polyethylene Glycol (Miralax) 17 gm PO DAILY [facility] Last Admin: 04/03/19 08:32 Dose: 17 gm Rosuvastatin Calcium (Crestor) 20 mg PO BEDTIME [facility] Last Admin: 04/02/19 22:15 Dose: 20 mg Scopolamine (Transderm-Scop) 1.5 mg TRDERM ONARRIVE [facility] Sodium Chloride (Saline Flush) 10 ml FLUSH ASDIRECTED PRN PRN Reason: Keep Vein Open Sodium Chloride (Saline Flush) 2.5 ml FLUSH ASDIRECTED PRN PRN Reason: Keep Vein Open Discontinued Medications Hydrocodone Bitart/Acetaminophen ([place] 325-5 Mg) 1 - 2 tab PO Q4H PRN PRN Reason: Pain Last Admin: 03/30/19 17:41 Dose: 2 tab Amlodipine Besylate (Norvasc) 10 mg PO DAILY [facility] Last Admin: 03/31/19 21:11 Dose: 10 mg Aspirin (Aspirin) 325 mg PO DAILY [facility] Last Admin: 04/01/19 08:06 Dose: 325 mg Chlorthalidone (Chlorthalidone) 25 mg PO DAILY [facility] Docusate Sodium (Colace) 100 mg PO BID PRN PRN Reason: Constipation Ephedrine Sulfate (Ephedrine Sulfate) Confirm Administered Dose 50 mg .ROUTE .STK-MED ONE Stop: 03/31/19 13:06 Fentanyl (Sublimaze) Confirm Administered Dose 100 mcg .ROUTE .STK-MED ONE Stop: 03/31/19 11:13 Fentanyl (Fentanyl) 50 mcg IVPUSH ONETIME ONE Stop: 03/31/19 13:43 Last Admin: 03/31/19 15:12 Dose: Not Given Hydromorphone HCl (Dilaudid) 1 mg IV ONETIME ONE Stop: 03/30/19 10:06 Last Admin: 03/30/19 10:13 Dose: 1 mg Hydromorphone HCl (Dilaudid) 1 mg IVPUSH ONETIME ONE Stop: 03/30/19 12:10 Last Admin: 03/30/19 12:26 Dose: 1 mg Hydromorphone HCl (Dilaudid) 1 mg IVPUSH ONETIME ONE Stop: 03/30/19 14:05 Last Admin: 03/30/19 14:10 Dose: 1 mg Hydromorphone HCl (Dilaudid) Confirm Administered Dose 2 mg .ROUTE .STK-MED ONE Stop: 03/31/19 13:00 Hydromorphone HCl (Dilaudid) Confirm Administered Dose 2 mg .ROUTE .STK-MED ONE Stop: 03/31/19 14:51 Last Admin: 03/31/19 15:12 Dose: Not Given Hydromorphone HCl (Dilaudid) 2 mg IVPUSH ONETIME ONE Stop: 03/31/19 14:54 Last Admin: 03/31/19 14:51 Dose: 1 mg Clindamycin Phosphate 600 mg/ (Premix) 50 mls @ 92.593 mls/hr IV ONCALL [facility] Tranexamic Acid 2,000 mg/ (Sodium Chloride) 120 mls @ 360 mls/hr IV ASDIRECTED ONE Stop: 03/30/19 11:47 Last Admin: 03/31/19 15:12 Dose: Not Given Ropivacaine 49.25 ml/Ketorolac Tromethamine 30 mg/Epinephrine HCl 0.5 mg/ Sodium Chloride 74.2 mls @ 50 mls/sec INJECT ASDIRECTED [facility] Stop: 03/30/19 11:31 Lactated Ringer's (Ringers, Lactated) 1,000 mls @ 75 mls/hr IV ASDIRECTED [facility] Last Admin: 03/31/19 11:57 Dose: 75 mls/hr Famotidine 40 mg/ Sodium (Chloride) 10 mls @ 300 mls/hr IV ONETIME ONE Stop: 03/30/19 11:46 Last Admin: 03/31/19 15:12 Dose: Not Given Ropivacaine 49.25 ml/Ketorolac Tromethamine 30 mg/Epinephrine HCl 0.5 mg/ Sodium Chloride 74.2 mls @ 50 mls/sec INJECT ASDIRECTED [facility] Acetaminophen (Ofirmev) Confirm Administered Dose 100 mls @ as directed .ROUTE .STK-MED ONE Stop: 03/31/19 11:17 Sodium Chloride (Normal Saline) Confirm Administered Dose 20 mls @ as directed .ROUTE .STK-MED ONE Stop: 03/31/19 13:06 Clindamycin Phosphate 600 mg/ (Premix) 50 mls @ 100 mls/hr IV Q8H [facility] Stop: 04/01/19 04:29 Last Admin: 04/01/19 03:29 Dose: 100 mls/hr Sodium Chloride (Normal Saline) 1,000 mls @ 999 mls/hr IV .Bolus ONE Stop: 04/01/19 11:19 Last Admin: 04/01/19 10:31 Dose: 999 mls/hr Vancomycin HCl 1.5 gm/ Premix 300 mls @ 150 mls/hr IV Q12H [facility] Last Admin: 04/03/19 03:08 Dose: Not Given Vancomycin HCl 1.5 gm/ Premix 300 mls @ 150 mls/hr IV Q8H [facility] Last Admin: 04/03/19 08:40 Dose: 150 mls/hr Ketorolac Tromethamine (Toradol) 15 mg IVPUSH ONARRIVE [facility] Ketorolac Tromethamine (Toradol) Confirm Administered Dose 30 mg .ROUTE .STK- MED ONE Stop: 03/31/19 12:58 Ketorolac Tromethamine (Toradol) 30 mg IVPUSH Q6H [facility] Stop: 04/01/19 05:00 Last Admin: 04/01/19 01:02 Dose: 30 mg Lisinopril (Prinivil) 40 mg PO DAILY [facility] Last Admin: 03/31/19 17:42 Dose: Not Given Midazolam HCl (Versed 1 Mg/Ml) Confirm Administered Dose 2 mg .ROUTE .STK-MED ONE Stop: 03/31/19 11:13 Morphine Sulfate (Morphine) 4 mg IVPUSH ONETIME ONE Stop: 03/30/19 09:06 Last Admin: 03/30/19 09:09 Dose: 4 mg Morphine Sulfate (Morphine) 2 mg IVPUSH Q2H PRN PRN Reason: Pain Last Admin: 03/31/19 09:36 Dose: 2 mg Ondansetron HCl (Zofran) 4 mg IVPUSH ONETIME ONE Stop: 03/30/19 09:05 Last Admin: 03/30/19 09:09 Dose: 4 mg Ondansetron HCl (Zofran) 4 mg PO Q6H PRN PRN Reason: Nausea/Vomiting Ondansetron HCl (Zofran) Confirm Administered Dose 4 mg .ROUTE .STK-MED ONE Stop: 03/31/19 11:13 Potassium Chloride (Potassium Chloride) 40 meq PO ONETIME ONE Stop: 03/30/19 13:17 Last Admin: 03/30/19 16:31 Dose: Not Given Potassium Chloride (Potassium Chloride) 40 meq PO ONETIME ONE Stop: 03/30/19 16:01 Last Admin: 03/30/19 17:37 Dose: 40 meq Potassium Chloride (Klor-Con M20) 40 meq PO ONETIME ONE Stop: 03/31/19 16:45 Last Admin: 03/31/19 17:40 Dose: 40 meq Potassium Chloride (Klor-Con M20) 40 meq PO ONETIME ONE Stop: 04/02/19 07:50 Last Admin: 04/02/19 09:14 Dose: 40 meq Propofol (Diprivan 20 Ml) Confirm Administered Dose 400 mg .ROUTE .STK-MED ONE Stop: 03/31/19 11:13 Sodium Chloride (Saline Flush) 10 ml FLUSH ASDIRECTED PRN PRN Reason: Keep Vein Open Last Admin: 03/30/19 09:10 Dose: 10 ml Sodium Chloride (Saline Flush) 2.5 ml FLUSH ASDIRECTED PRN PRN Reason: Keep Vein Open Last Admin: 03/30/19 09:10 Dose: 2.5 ml Sugammadex Sodium (Bridion) Confirm Administered Dose 200 mg .ROUTE .STK-MED ONE Stop: 03/31/19 14:09 Tranexamic Acid (Cyklokapron) Confirm Administered Dose 1,000 mg .ROUTE .STK- MED ONE Stop: 03/31/19 11:47 Vancomycin HCl (Pharmacy To Dose - Vancomycin) 1 dose .XX ONETIME ONE Stop: 04/01/19 12:09 Last Admin: 04/01/19 15:39 Dose: Not Given Vancomycin HCl (Pharmacy To Dose - Vancomycin) 1 dose .XX ASDIRECTED [facility] - Exam General: Alert, Oriented, Cooperative, No Acute Distress Lungs: Clear to Auscultation, Normal Respiratory Effort Cardiovascular: Regular Rate, Regular Rhythm GI/Abdominal Exam: Normal Bowel Sounds, Soft, Non-Tender, No Distention Extremities: Other (LLE: dressings c/d/i.) Consult PN Assessment/Plan Procedures: Procedures ALANINE AMINO (ALT) (SGPT) (09/16/15) APPLY LONG ARM SPLINT (06/15/17) ASSAY OF LACTIC ACID (03/16/16) ASSAY OF VANCOMYCIN (03/25/16) ASSAY THYROID STIM HORMONE (08/07/18) COLLECT BLOOD FROM PICC (03/25/16) COMPLETE CBC AUTOMATED (08/07/18) COMPLETE CBC W/AUTO DIFF WBC (11/05/18) COMPREHEN METABOLIC PANEL (11/05/18) CT ABD & PELV W/CONTRAST (03/16/16) CT LUMBAR SPINE W/DYE (08/29/16) CULTURE OTHR SPECIMN AEROBIC (03/16/16) DRUG SCRN 1+ CLASS NONCHROMO (08/07/13) DRUG TEST PRSMV DIR OPT OBS (02/18/19) DXA BONE DENSITY AXIAL (09/14/16) ELECTROCARDIOGRAM TRACING (03/16/16) EMERGENCY DEPT VISIT (04/27/18) EMERGENCY DEPT VISIT (06/15/17) FLUOROGUIDE FOR VEIN DEVICE (03/20/16) HEPATIC FUNCTION PANEL (10/23/18) HEPATITIS C AB TEST (09/06/17) IMMUNIZATION ADMIN (03/16/16) INJ FORAMEN EPIDURAL L/S (06/04/14) INJECT SPINE CERV/THORACIC (06/04/14) INJECTION FOR MYELOGRAM (08/29/16) INSERT TEMP BLADDER CATH (04/27/18) INSJ PICC 5 YR+ W/O IMAGING (03/20/16) LIPID PANEL (09/06/17) METABOLIC PANEL TOTAL CA (10/23/18) MRI CHEST SPINE W/O DYE (08/05/14) MRI JNT OF LWR EXTRE W/O DYE (07/19/17) MRI LUMBAR SPINE W/O DYE (10/30/18) MYELOGRAPHY L-S SPINE (08/29/16) NJX INTERLAMINAR LMBR/SAC (07/18/16) OPIATES 1 OR MORE (02/07/19) PRP I/ZE INIT BLOCK >5 YR (03/16/16) ROUTINE VENIPUNCTURE (11/05/18) THER/PROPH/DIAG INJ IV PUSH (03/25/16) THER/PROPH/DIAG INJ SC/IM (03/16/16) THER/PROPH/DIAG IV INF ADDON (03/25/16) THER/PROPH/DIAG IV INF INIT (03/25/16) TISSUE EXAM BY PATHOLOGIST (03/16/16) TTE W/DOPPLER COMPLETE (11/18/18) TX/PRO/DX INJ NEW DRUG ADDON (03/16/16) TX/PRO/DX INJ SAME DRUG ARC CUTTER (03/16/16) TX/PROPH/DG ADDL SEQ IV INF (03/16/16) URINALYSIS AUTO W/O SCOPE (11/05/18) URINALYSIS AUTO W/SCOPE (04/27/18) URINE CULTURE/COLONY COUNT (04/27/18) US GUIDE VASCULAR ACCESS (03/20/16) US URINE CAPACITY MEASURE (04/27/18) X-RAY EXAM ABDOMEN 2 VIEWS (04/27/18) X-RAY EXAM HIP UNI 2-3 VIEWS (11/29/15) X-RAY EXAM L-2 SPINE 4/>VWS (08/29/16) X-RAY EXAM OF HIP (05/11/14) X-RAY EXAM OF HUMERUS (06/15/17) X-RAY EXAM OF KNEE 1 OR 2 (07/25/17) X-RAY EXAM OF SHOULDER (06/15/17) X-RAY EXAM OF SINUSES (09/25/13) Problem List Initiated/Reviewed/Updated: Yes Plan: Assessment: 1. Left femoral neck fracture s/p left hip gamma nail insertion POD #3. 2. Fever, resolved. 3. Leukocytosis likely secondary to #1. 4. Hypertension. 5. Hyperlipidemia. 6. Hypokalemia, resolved. Plan: 1. For left femoral neck fracture, management per orthopedic surgery. 2. For fever, patient has been afebrile for past 24 hours. Will discontinue vancomycin. Blood cultures negative. 3. For hypertension, will continue to monitor and resume when appropriate. 4. For hyperlipidemia, will continue home medication. 5. DVT prophylaxis and pain control per orthopedic surgery.
--- NOTE | 2019-04-03 17:10 | PCM.PN ---
- General Info Date of Service: 04/03/19 Admission Dx/Problem (Free Text): Admission Diagnosis/Problem Admission Diagnosis/Problem Hip fracture requiring operative repair Functional Status: Reports: Pain Controlled, Tolerating Diet, Ambulating, Urinating - Review of Systems General: Reports: No Symptoms HEENT: Reports: Eye Pain Pulmonary: Reports: No Symptoms Cardiovascular: Reports: No Symptoms Gastrointestinal: Reports: No Symptoms Genitourinary: Reports: No Symptoms Musculoskeletal: Reports: Leg Pain, Joint Pain, Joint Swelling Skin: Reports: No Symptoms Neurological: Reports: No Symptoms Psychiatric: Reports: No Symptoms - Patient Data Vitals - Most Recent: Last Vital Signs Temp 36.6 C 04/03/19 16:00 Pulse 92 04/03/19 16:00 Resp 20 04/03/19 16:00 BP 140/66 04/03/19 16:00 Pulse Ox 96 04/03/19 16:00 Weight - Most Recent: 97.522 kg I&O - Last 24 Hours: Intake & Output 04/03/19 04/03/19 04/03/19 06:59 14:59 22:59 Intake Total 1050 1120 Output Total 900 630 Balance 150 490 Lab Results Last 24 Hours: Laboratory Results - last 24 hr 04/03/19 04/03/19 04/03/19 Range/Units 00:30 07:05 07:05 WBC 11.48 H (4.0-11.0) K/uL RBC 3.13 L (4.50-5.90) M/uL Hgb 9.9 L (13.0-17.0) g/dL Hct 29.0 L (38.0-50.0) % MCV 92.7 (80.0-98.0) fL MCH 31.6 (27.0-32.0) pg MCHC 34.1 (31.0-37.0) g/dL RDW Std Deviation 48.4 (28.0-62.0) fl RDW Coeff of Kalyn 14 (11.0-15.0) % Plt Count 222 (150-400) K/uL MPV 9.00 (7.40-12.00) fL Neut % (Auto) 72.5 (48.0-80.0) % Lymph % (Auto) 9.8 L (16.0-40.0) % [place] % (Auto) 12.9 (0.0-15.0) % Eos % (Auto) 4.5 (0.0-7.0) % Baso % (Auto) 0.3 (0.0-1.5) % Neut # (Auto) 8.3 H (1.4-5.7) K/uL Lymph # (Auto) 1.1 (0.6-2.4) K/uL [place] # (Auto) 1.5 H (0.0-0.8) K/uL Eos # (Auto) 0.5 (0.0-0.7) K/uL Baso # (Auto) 0.0 (0.0-0.1) K/uL Nucleated RBC % 0.0 /100WBC Nucleated RBCs # 0 K/uL Sodium 141 (136-148) mmol/L Potassium 3.7 (3.5-5.1) mmol/L Chloride 106 (98-107) mmol/L Carbon Dioxide 27.0 (21.0-32.0) mmol/L BUN 15 (7.0-18.0) mg/dL Creatinine 0.8 (0.8-1.3) mg/dL Est Cr Clr Drug Dosing 106.81 mL/min Estimated GFR (MDRD) > 60.0 ml/min Glucose 110 H (74-106) mg/dL Calcium 7.9 L (8.5-10.1) mg/dL Total Bilirubin 0.5 (0.2-1.0) mg/dL AST 21 (15-37) IU/L ALT 23 (14-63) IU/L Alkaline Phosphatase 43 L (46-116) U/L Total Protein 6.1 L (6.4-8.2) g/dL Albumin 2.5 L (3.4-5.0) g/dL Globulin 3.6 (2.6-4.0) g/dL Albumin/Globulin Ratio 0.7 L (0.9-1.6) Vancomycin Trough 6.6 (5.0-10.0) ug/mL Ike Results Last 24 Hours: Microbiology 04/01/19 09:49 Aerobic Blood Culture - Preliminary Blood - Venous - Lab Draw NO GROWTH AFTER 2 DAYS Anaerobic Blood Culture - Preliminary NO GROWTH AFTER 2 DAYS 04/01/19 09:43 Aerobic Blood Culture - Preliminary Blood - Venous NO GROWTH AFTER 2 DAYS Anaerobic Blood Culture - Preliminary NO GROWTH AFTER 2 DAYS Med Orders - Current: Current Medications Al Hydroxide/Mg Hydroxide (Mag-Al Plus) 30 ml PO Q4H PRN PRN Reason: Indigestion Artificial Tears (Refresh Plus 0.5%) 1 each EYEBOTH Q4H PRN PRN Reason: Dry Eyes Aspirin (Ecotrin) 325 mg PO DAILY [facility] Last Admin: 04/03/19 08:32 Dose: 325 mg Bisacodyl (Dulcolax) 10 mg RECTAL DAILY PRN PRN Reason: Constipation Diphenhydramine HCl (Benadryl) 25 - 50 mg PO Q6H PRN PRN Reason: Itching Docusate Sodium (Colace) 100 mg PO BID PRN PRN Reason: Constipation Famotidine (Pepcid) 40 mg PO DAILY [facility] Last Admin: 04/03/19 08:32 Dose: 40 mg Gabapentin (Neurontin) 300 mg PO TID [facility] Last Admin: 04/03/19 13:56 Dose: 300 mg Gentamicin Sulfate (Gentak 0.3% Ophth Oint) 0 gm EYELF TID [facility] Morphine Sulfate (Morphine) 1 - 2 mg IVPUSH Q3H PRN PRN Reason: Pain Last Admin: 04/03/19 15:00 Dose: 2 mg Ondansetron HCl (Zofran) 4 mg IVPUSH Q6H PRN PRN Reason: Nausea/Vomiting Oxycodone/Acetaminophen (Percocet 325-5 Mg) 1 tab PO QID PRN PRN Reason: Pain Last Admin: 04/03/19 13:55 Dose: 1 tab Polyethylene Glycol (Miralax) 17 gm PO DAILY [facility] Last Admin: 04/03/19 08:32 Dose: 17 gm Rosuvastatin Calcium (Crestor) 20 mg PO BEDTIME [facility] Last Admin: 04/02/19 22:15 Dose: 20 mg Scopolamine (Transderm-Scop) 1.5 mg TRDERM ONARRIVE [facility] Sodium Chloride (Saline Flush) 10 ml FLUSH ASDIRECTED PRN PRN Reason: Keep Vein Open Sodium Chloride (Saline Flush) 2.5 ml FLUSH ASDIRECTED PRN PRN Reason: Keep Vein Open Discontinued Medications Hydrocodone Bitart/Acetaminophen (Lotus 325-5 Mg) 1 - 2 tab PO Q4H PRN PRN Reason: Pain Last Admin: 03/30/19 17:41 Dose: 2 tab Amlodipine Besylate (Norvasc) 10 mg PO DAILY [facility] Last Admin: 03/31/19 21:11 Dose: 10 mg Aspirin (Aspirin) 325 mg PO DAILY [facility] Last Admin: 04/01/19 08:06 Dose: 325 mg Chlorthalidone (Chlorthalidone) 25 mg PO DAILY [facility] Docusate Sodium (Colace) 100 mg PO BID PRN PRN Reason: Constipation Ephedrine Sulfate (Ephedrine Sulfate) Confirm Administered Dose 50 mg .ROUTE .STK-MED ONE Stop: 03/31/19 13:06 Fentanyl (Sublimaze) Confirm Administered Dose 100 mcg .ROUTE .STK-MED ONE Stop: 03/31/19 11:13 Fentanyl (Fentanyl) 50 mcg IVPUSH ONETIME ONE Stop: 03/31/19 13:43 Last Admin: 03/31/19 15:12 Dose: Not Given Hydromorphone HCl (Dilaudid) 1 mg IV ONETIME ONE Stop: 03/30/19 10:06 Last Admin: 03/30/19 10:13 Dose: 1 mg Hydromorphone HCl (Dilaudid) 1 mg IVPUSH ONETIME ONE Stop: 03/30/19 12:10 Last Admin: 03/30/19 12:26 Dose: 1 mg Hydromorphone HCl (Dilaudid) 1 mg IVPUSH ONETIME ONE Stop: 03/30/19 14:05 Last Admin: 03/30/19 14:10 Dose: 1 mg Hydromorphone HCl (Dilaudid) Confirm Administered Dose 2 mg .ROUTE .STK-MED ONE Stop: 03/31/19 13:00 Hydromorphone HCl (Dilaudid) Confirm Administered Dose 2 mg .ROUTE .STK-MED ONE Stop: 03/31/19 14:51 Last Admin: 03/31/19 15:12 Dose: Not Given Hydromorphone HCl (Dilaudid) 2 mg IVPUSH ONETIME ONE Stop: 03/31/19 14:54 Last Admin: 03/31/19 14:51 Dose: 1 mg Clindamycin Phosphate 600 mg/ (Premix) 50 mls @ 92.593 mls/hr IV ONCALL [facility] Tranexamic Acid 2,000 mg/ (Sodium Chloride) 120 mls @ 360 mls/hr IV ASDIRECTED ONE Stop: 03/30/19 11:47 Last Admin: 03/31/19 15:12 Dose: Not Given Ropivacaine 49.25 ml/Ketorolac Tromethamine 30 mg/Epinephrine HCl 0.5 mg/ Sodium Chloride 74.2 mls @ 50 mls/sec INJECT ASDIRECTED [facility] Stop: 03/30/19 11:31 Lactated Ringer's (Ringers, Lactated) 1,000 mls @ 75 mls/hr IV ASDIRECTED [facility] Last Admin: 03/31/19 11:57 Dose: 75 mls/hr Famotidine 40 mg/ Sodium (Chloride) 10 mls @ 300 mls/hr IV ONETIME ONE Stop: 03/30/19 11:46 Last Admin: 03/31/19 15:12 Dose: Not Given Ropivacaine 49.25 ml/Ketorolac Tromethamine 30 mg/Epinephrine HCl 0.5 mg/ Sodium Chloride 74.2 mls @ 50 mls/sec INJECT ASDIRECTED [facility] Acetaminophen (Ofirmev) Confirm Administered Dose 100 mls @ as directed .ROUTE .STK-MED ONE Stop: 03/31/19 11:17 Sodium Chloride (Normal Saline) Confirm Administered Dose 20 mls @ as directed .ROUTE .STK-MED ONE Stop: 03/31/19 13:06 Clindamycin Phosphate 600 mg/ (Premix) 50 mls @ 100 mls/hr IV Q8H [facility] Stop: 04/01/19 04:29 Last Admin: 04/01/19 03:29 Dose: 100 mls/hr Sodium Chloride (Normal Saline) 1,000 mls @ 999 mls/hr IV .Bolus ONE Stop: 04/01/19 11:19 Last Admin: 04/01/19 10:31 Dose: 999 mls/hr Vancomycin HCl 1.5 gm/ Premix 300 mls @ 150 mls/hr IV Q12H [facility] Last Admin: 04/03/19 03:08 Dose: Not Given Vancomycin HCl 1.5 gm/ Premix 300 mls @ 150 mls/hr IV Q8H [facility] Last Admin: 04/03/19 08:40 Dose: 150 mls/hr Ketorolac Tromethamine (Toradol) 15 mg IVPUSH ONARRIVE [facility] Ketorolac Tromethamine (Toradol) Confirm Administered Dose 30 mg .ROUTE .STK- MED ONE Stop: 03/31/19 12:58 Ketorolac Tromethamine (Toradol) 30 mg IVPUSH Q6H [facility] Stop: 04/01/19 05:00 Last Admin: 04/01/19 01:02 Dose: 30 mg Lisinopril (Prinivil) 40 mg PO DAILY [facility] Last Admin: 03/31/19 17:42 Dose: Not Given Midazolam HCl (Versed 1 Mg/Ml) Confirm Administered Dose 2 mg .ROUTE .STK-MED ONE Stop: 03/31/19 11:13 Morphine Sulfate (Morphine) 4 mg IVPUSH ONETIME ONE Stop: 03/30/19 09:06 Last Admin: 03/30/19 09:09 Dose: 4 mg Morphine Sulfate (Morphine) 2 mg IVPUSH Q2H PRN PRN Reason: Pain Last Admin: 03/31/19 09:36 Dose: 2 mg Ondansetron HCl (Zofran) 4 mg IVPUSH ONETIME ONE Stop: 03/30/19 09:05 Last Admin: 03/30/19 09:09 Dose: 4 mg Ondansetron HCl (Zofran) 4 mg PO Q6H PRN PRN Reason: Nausea/Vomiting Ondansetron HCl (Zofran) Confirm Administered Dose 4 mg .ROUTE .STK-MED ONE Stop: 03/31/19 11:13 Potassium Chloride (Potassium Chloride) 40 meq PO ONETIME ONE Stop: 03/30/19 13:17 Last Admin: 03/30/19 16:31 Dose: Not Given Potassium Chloride (Potassium Chloride) 40 meq PO ONETIME ONE Stop: 03/30/19 16:01 Last Admin: 03/30/19 17:37 Dose: 40 meq Potassium Chloride (Klor-Con M20) 40 meq PO ONETIME ONE Stop: 03/31/19 16:45 Last Admin: 03/31/19 17:40 Dose: 40 meq Potassium Chloride (Klor-Con M20) 40 meq PO ONETIME ONE Stop: 04/02/19 07:50 Last Admin: 04/02/19 09:14 Dose: 40 meq Propofol (Diprivan 20 Ml) Confirm Administered Dose 400 mg .ROUTE .STK-MED ONE Stop: 03/31/19 11:13 Sodium Chloride (Saline Flush) 10 ml FLUSH ASDIRECTED PRN PRN Reason: Keep Vein Open Last Admin: 03/30/19 09:10 Dose: 10 ml Sodium Chloride (Saline Flush) 2.5 ml FLUSH ASDIRECTED PRN PRN Reason: Keep Vein Open Last Admin: 03/30/19 09:10 Dose: 2.5 ml Sugammadex Sodium (Bridion) Confirm Administered Dose 200 mg .ROUTE .STK-MED ONE Stop: 03/31/19 14:09 Tranexamic Acid (Cyklokapron) Confirm Administered Dose 1,000 mg .ROUTE .STK- MED ONE Stop: 03/31/19 11:47 Vancomycin HCl (Pharmacy To Dose - Vancomycin) 1 dose .XX ONETIME ONE Stop: 04/01/19 12:09 Last Admin: 04/01/19 15:39 Dose: Not Given Vancomycin HCl (Pharmacy To Dose - Vancomycin) 1 dose .XX ASDIRECTED NILSON - Exam Quality Assessment: DVT Prophylaxis General: Alert, Oriented, Cooperative, Mild Distress HEENT: Pupils Equal, Pupils Reactive, EOMI, Mucous Membr. Moist/[place] Neck: Supple, Trachea Midline Lungs: Normal Respiratory Effort Extremities: Joint Swelling, Leg Pain Skin: Warm, Dry, Intact Wound/Incisions: Healing Well, Dressing Dry and Intact, No Drainage Neurological: No New Focal Deficit Psy/Mental Status: Alert, Normal Affect, Normal Mood - Problem List & Annotations (1) Fracture, intertrochanteric, left femur SNOMED Code(s): 101351905 Code(s): S72.142A - DISPLACED INTERTROCHANTERIC FRACTURE OF LEFT FEMUR, INIT Status: Acute Current Visit: Yes Qualifiers: Encounter type: initial encounter Fracture type: closed Fracture alignment: displaced Qualified Code(s): S72.142A - Displaced intertrochanteric fracture of left femur, initial encounter for closed fracture - Problem List Review Problem List Initiated/Reviewed/Updated: Yes - My Orders Last 24 Hours: My Active Orders 04/03/19 11:54 Consult to [Consult to Home Health] [CONS] Routine 04/03/19 22:00 Gentamicin [Gentak 0.3% Ophth Oint] See Dose Instructions EYELF TID - Plan Plan:: A: POD 3 left hip cephallomedullary nail, was able to ambulate down the rees. will try again this evening. P: pt/ot, dvt prophylaxis, pain control
[2019-04-03] MEDS: Carboxymethylcellulose Sodium 0.5% Ophth Soln 0.4 ML UD Box of 30 EYEBOTH PRN (18:52)
[2019-04-03] MEDS: Rosuvastatin 10 MG Tab PO SCH (20:17)
[2019-04-04] MEDS: Gabapentin 300 MG Cap PO SCH ×3 (05:18→22:06)
[2019-04-04] MEDS: Carboxymethylcellulose Sodium 0.5% Ophth Soln 0.4 ML UD Box of 30 EYEBOTH PRN ×2 (05:32→22:24)
[2019-04-04 05:58] LABS: BLOOD UREA NITROGEN,BUN 20 mg/dL (7.0-18.0); CARBON DIOXIDE,CO2 24.3 mmol/L (21.0-32.0); CHLORIDE,CL 106 mmol/L (98-107); GLUCOSE RANDOM 117 mg/dL (74-106); POTASSIUM,K 3.5 mmol/L (3.5-5.1); SODIUM,NA 140 mmol/L (136-148)
[2019-04-04] MEDS: Acetaminophen/oxyCODONE 325-5 MG Tab PO PRN ×3 (07:10→19:51)
[2019-04-04] MEDS: Aspirin 325 MG Tab.EC PO SCH (08:23)
[2019-04-04] MEDS: Polyethylene Glycol 3350 Powder 17 GM Packet PO SCH (08:24)
[2019-04-04] MEDS: Famotidine 20 MG Tab PO SCH (08:24)
[2019-04-04] MEDS ORDERED: Lisinopril 10 MG Tab PO SCH (10:00)
[2019-04-04] MEDS: Morphine 2 MG/ML Syringe IVPUSH PRN ×3 (10:22→22:01)
[2019-04-04] MEDS: amLODIPine 5 MG Tab PO SCH (10:25)
--- NOTE | 2019-04-04 13:19 | PCM.CONSN ---
- General Info Date of Service: 04/04/19 Subjective Update: No complaints at bedside this AM. Denied fevers, chills, shortness of breath or chest pain. Has been working with PT. - Patient Data Vitals - Most Recent: Last Vital Signs Temp 98.5 F 04/04/19 12:00 Pulse 83 04/04/19 12:00 Resp 22 H 04/04/19 12:00 BP 159/72 H 04/04/19 12:00 Pulse Ox 98 04/04/19 12:00 Weight - Most Recent: 215 lb I&O - Last 24 Hours: Intake & Output 04/03/19 04/04/19 04/04/19 22:59 06:59 14:59 Intake Total 1120 1300 Output Total 630 800 Balance 490 500 Lab Results Last 24 Hours: Laboratory Results - last 24 hr 04/04/19 04/04/19 Range/Units 05:25 05:25 WBC 9.79 (4.0-11.0) K/uL RBC 3.04 L (4.50-5.90) M/uL Hgb 9.6 L (13.0-17.0) g/dL Hct 28.3 L (38.0-50.0) % MCV 93.1 (80.0-98.0) fL MCH 31.6 (27.0-32.0) pg MCHC 33.9 (31.0-37.0) g/dL RDW Std Deviation 47.7 (28.0-62.0) fl RDW Coeff of Kalyn 14 (11.0-15.0) % Plt Count 261 (150-400) K/uL MPV 9.30 (7.40-12.00) fL Neut % (Auto) 67.6 (48.0-80.0) % Lymph % (Auto) 10.4 L (16.0-40.0) % [place] % (Auto) 15.4 H (0.0-15.0) % Eos % (Auto) 6.3 (0.0-7.0) % Baso % (Auto) 0.3 (0.0-1.5) % Neut # (Auto) 6.6 H (1.4-5.7) K/uL Lymph # (Auto) 1.0 (0.6-2.4) K/uL [place] # (Auto) 1.5 H (0.0-0.8) K/uL Eos # (Auto) 0.6 (0.0-0.7) K/uL Baso # (Auto) 0.0 (0.0-0.1) K/uL Nucleated RBC % 0.0 /100WBC Nucleated RBCs # 0 K/uL Sodium 140 (136-148) mmol/L Potassium 3.5 (3.5-5.1) mmol/L Chloride 106 (98-107) mmol/L Carbon Dioxide 24.3 (21.0-32.0) mmol/L BUN 20 H (7.0-18.0) mg/dL Creatinine 0.8 (0.8-1.3) mg/dL Est Cr Clr Drug Dosing 106.81 mL/min Estimated GFR (MDRD) > 60.0 ml/min Glucose 117 H (74-106) mg/dL Calcium 8.0 L (8.5-10.1) mg/dL Total Bilirubin 0.5 (0.2-1.0) mg/dL AST 25 (15-37) IU/L ALT 27 (14-63) IU/L Alkaline Phosphatase 52 (46-116) U/L Total Protein 6.0 L (6.4-8.2) g/dL Albumin 2.4 L (3.4-5.0) g/dL Globulin 3.6 (2.6-4.0) g/dL Albumin/Globulin Ratio 0.7 L (0.9-1.6) Ike Results Last 24 Hours: Microbiology 04/01/19 09:49 Aerobic Blood Culture - Preliminary Blood - Venous - Lab Draw NO GROWTH AFTER 3 DAYS Anaerobic Blood Culture - Preliminary NO GROWTH AFTER 3 DAYS 04/01/19 09:43 Aerobic Blood Culture - Preliminary Blood - Venous NO GROWTH AFTER 3 DAYS Anaerobic Blood Culture - Preliminary NO GROWTH AFTER 3 DAYS Med Orders - Current: Current Medications Al Hydroxide/Mg Hydroxide (Mag-Al Plus) 30 ml PO Q4H PRN PRN Reason: Indigestion Amlodipine Besylate (Norvasc) 10 mg PO DAILY [facility] Last Admin: 04/04/19 10:25 Dose: 10 mg Artificial Tears (Refresh Plus 0.5%) 1 each EYEBOTH Q4H PRN PRN Reason: Dry Eyes Last Admin: 04/04/19 05:32 Dose: 2 drop Aspirin (Ecotrin) 325 mg PO DAILY [facility] Last Admin: 04/04/19 08:23 Dose: 325 mg Bisacodyl (Dulcolax) 10 mg RECTAL DAILY PRN PRN Reason: Constipation Diphenhydramine HCl (Benadryl) 25 - 50 mg PO Q6H PRN PRN Reason: Itching Docusate Sodium (Colace) 100 mg PO BID PRN PRN Reason: Constipation Famotidine (Pepcid) 40 mg PO DAILY [facility] Last Admin: 04/04/19 08:24 Dose: 40 mg Gabapentin (Neurontin) 300 mg PO TID [facility] Last Admin: 04/04/19 05:18 Dose: 300 mg Gentamicin Sulfate (Gentak 0.3% Ophth Oint) 0 gm EYELF TID [facility] Last Admin: 04/04/19 06:30 Dose: Not Given Morphine Sulfate (Morphine) 1 - 2 mg IVPUSH Q3H PRN PRN Reason: Pain Last Admin: 04/04/19 10:22 Dose: 2 mg Ondansetron HCl (Zofran) 4 mg IVPUSH Q6H PRN PRN Reason: Nausea/Vomiting Oxycodone/Acetaminophen (Percocet 325-5 Mg) 1 tab PO QID PRN PRN Reason: Pain Last Admin: 04/04/19 07:10 Dose: 1 tab Polyethylene Glycol (Miralax) 17 gm PO DAILY [facility] Last Admin: 04/04/19 08:24 Dose: 17 gm Rosuvastatin Calcium (Crestor) 20 mg PO BEDTIME [facility] Last Admin: 04/03/19 20:17 Dose: 20 mg Scopolamine (Transderm-Scop) 1.5 mg TRDERM ONARRIVE [facility] Sodium Chloride (Saline Flush) 10 ml FLUSH ASDIRECTED PRN PRN Reason: Keep Vein Open Sodium Chloride (Saline Flush) 2.5 ml FLUSH ASDIRECTED PRN PRN Reason: Keep Vein Open Discontinued Medications Hydrocodone Bitart/Acetaminophen ([place] 325-5 Mg) 1 - 2 tab PO Q4H PRN PRN Reason: Pain Last Admin: 03/30/19 17:41 Dose: 2 tab Amlodipine Besylate (Norvasc) 10 mg PO DAILY [facility] Last Admin: 03/31/19 21:11 Dose: 10 mg Aspirin (Aspirin) 325 mg PO DAILY [facility] Last Admin: 04/01/19 08:06 Dose: 325 mg Chlorthalidone (Chlorthalidone) 25 mg PO DAILY [facility] Docusate Sodium (Colace) 100 mg PO BID PRN PRN Reason: Constipation Ephedrine Sulfate (Ephedrine Sulfate) Confirm Administered Dose 50 mg .ROUTE .STK-MED ONE Stop: 03/31/19 13:06 Fentanyl (Sublimaze) Confirm Administered Dose 100 mcg .ROUTE .STK-MED ONE Stop: 03/31/19 11:13 Fentanyl (Fentanyl) 50 mcg IVPUSH ONETIME ONE Stop: 03/31/19 13:43 Last Admin: 03/31/19 15:12 Dose: Not Given Hydromorphone HCl (Dilaudid) 1 mg IV ONETIME ONE Stop: 03/30/19 10:06 Last Admin: 03/30/19 10:13 Dose: 1 mg Hydromorphone HCl (Dilaudid) 1 mg IVPUSH ONETIME ONE Stop: 03/30/19 12:10 Last Admin: 03/30/19 12:26 Dose: 1 mg Hydromorphone HCl (Dilaudid) 1 mg IVPUSH ONETIME ONE Stop: 03/30/19 14:05 Last Admin: 03/30/19 14:10 Dose: 1 mg Hydromorphone HCl (Dilaudid) Confirm Administered Dose 2 mg .ROUTE .STK-MED ONE Stop: 03/31/19 13:00 Hydromorphone HCl (Dilaudid) Confirm Administered Dose 2 mg .ROUTE .STK-MED ONE Stop: 03/31/19 14:51 Last Admin: 03/31/19 15:12 Dose: Not Given Hydromorphone HCl (Dilaudid) 2 mg IVPUSH ONETIME ONE Stop: 03/31/19 14:54 Last Admin: 03/31/19 14:51 Dose: 1 mg Clindamycin Phosphate 600 mg/ (Premix) 50 mls @ 92.593 mls/hr IV ONCALL [facility] Tranexamic Acid 2,000 mg/ (Sodium Chloride) 120 mls @ 360 mls/hr IV ASDIRECTED ONE Stop: 03/30/19 11:47 Last Admin: 03/31/19 15:12 Dose: Not Given Ropivacaine 49.25 ml/Ketorolac Tromethamine 30 mg/Epinephrine HCl 0.5 mg/ Sodium Chloride 74.2 mls @ 50 mls/sec INJECT ASDIRECTED [facility] Stop: 03/30/19 11:31 Lactated Ringer's (Ringers, Lactated) 1,000 mls @ 75 mls/hr IV ASDIRECTED [facility] Last Admin: 03/31/19 11:57 Dose: 75 mls/hr Famotidine 40 mg/ Sodium (Chloride) 10 mls @ 300 mls/hr IV ONETIME ONE Stop: 03/30/19 11:46 Last Admin: 03/31/19 15:12 Dose: Not Given Ropivacaine 49.25 ml/Ketorolac Tromethamine 30 mg/Epinephrine HCl 0.5 mg/ Sodium Chloride 74.2 mls @ 50 mls/sec INJECT ASDIRECTED [facility] Acetaminophen (Ofirmev) Confirm Administered Dose 100 mls @ as directed .ROUTE .STK-MED ONE Stop: 03/31/19 11:17 Sodium Chloride (Normal Saline) Confirm Administered Dose 20 mls @ as directed .ROUTE .STK-MED ONE Stop: 03/31/19 13:06 Clindamycin Phosphate 600 mg/ (Premix) 50 mls @ 100 mls/hr IV Q8H [facility] Stop: 04/01/19 04:29 Last Admin: 04/01/19 03:29 Dose: 100 mls/hr Sodium Chloride (Normal Saline) 1,000 mls @ 999 mls/hr IV .Bolus ONE Stop: 04/01/19 11:19 Last Admin: 04/01/19 10:31 Dose: 999 mls/hr Vancomycin HCl 1.5 gm/ Premix 300 mls @ 150 mls/hr IV Q12H [facility] Last Admin: 04/03/19 03:08 Dose: Not Given Vancomycin HCl 1.5 gm/ Premix 300 mls @ 150 mls/hr IV Q8H [facility] Last Admin: 04/03/19 08:40 Dose: 150 mls/hr Ketorolac Tromethamine (Toradol) 15 mg IVPUSH ONARRIVE [facility] Ketorolac Tromethamine (Toradol) Confirm Administered Dose 30 mg .ROUTE .STK- MED ONE Stop: 03/31/19 12:58 Ketorolac Tromethamine (Toradol) 30 mg IVPUSH Q6H [facility] Stop: 04/01/19 05:00 Last Admin: 04/01/19 01:02 Dose: 30 mg Lisinopril (Prinivil) 40 mg PO DAILY [facility] Last Admin: 03/31/19 17:42 Dose: Not Given Lisinopril (Prinivil) 40 mg PO DAILY [facility] Midazolam HCl (Versed 1 Mg/Ml) Confirm Administered Dose 2 mg .ROUTE .STK-MED ONE Stop: 03/31/19 11:13 Morphine Sulfate (Morphine) 4 mg IVPUSH ONETIME ONE Stop: 03/30/19 09:06 Last Admin: 03/30/19 09:09 Dose: 4 mg Morphine Sulfate (Morphine) 2 mg IVPUSH Q2H PRN PRN Reason: Pain Last Admin: 03/31/19 09:36 Dose: 2 mg Ondansetron HCl (Zofran) 4 mg IVPUSH ONETIME ONE Stop: 03/30/19 09:05 Last Admin: 03/30/19 09:09 Dose: 4 mg Ondansetron HCl (Zofran) 4 mg PO Q6H PRN PRN Reason: Nausea/Vomiting Ondansetron HCl (Zofran) Confirm Administered Dose 4 mg .ROUTE .STK-MED ONE Stop: 03/31/19 11:13 Potassium Chloride (Potassium Chloride) 40 meq PO ONETIME ONE Stop: 03/30/19 13:17 Last Admin: 03/30/19 16:31 Dose: Not Given Potassium Chloride (Potassium Chloride) 40 meq PO ONETIME ONE Stop: 03/30/19 16:01 Last Admin: 03/30/19 17:37 Dose: 40 meq Potassium Chloride (Klor-Con M20) 40 meq PO ONETIME ONE Stop: 03/31/19 16:45 Last Admin: 03/31/19 17:40 Dose: 40 meq Potassium Chloride (Klor-Con M20) 40 meq PO ONETIME ONE Stop: 04/02/19 07:50 Last Admin: 04/02/19 09:14 Dose: 40 meq Propofol (Diprivan 20 Ml) Confirm Administered Dose 400 mg .ROUTE .STK-MED ONE Stop: 03/31/19 11:13 Sodium Chloride (Saline Flush) 10 ml FLUSH ASDIRECTED PRN PRN Reason: Keep Vein Open Last Admin: 03/30/19 09:10 Dose: 10 ml Sodium Chloride (Saline Flush) 2.5 ml FLUSH ASDIRECTED PRN PRN Reason: Keep Vein Open Last Admin: 03/30/19 09:10 Dose: 2.5 ml Sugammadex Sodium (Bridion) Confirm Administered Dose 200 mg .ROUTE .STK-MED ONE Stop: 03/31/19 14:09 Tranexamic Acid (Cyklokapron) Confirm Administered Dose 1,000 mg .ROUTE .STK- MED ONE Stop: 03/31/19 11:47 Vancomycin HCl (Pharmacy To Dose - Vancomycin) 1 dose .XX ONETIME ONE Stop: 04/01/19 12:09 Last Admin: 04/01/19 15:39 Dose: Not Given Vancomycin HCl (Pharmacy To Dose - Vancomycin) 1 dose .XX ASDIRECTED [facility] - Exam General: Alert, Oriented, Cooperative, No Acute Distress Lungs: Clear to Auscultation, Normal Respiratory Effort Cardiovascular: Regular Rate, Regular Rhythm GI/Abdominal Exam: Normal Bowel Sounds, Soft, Non-Tender, No Distention Extremities: Other (LLE: dressings are c/d/i, no drainage noted) Consult PN Assessment/Plan Procedures: Procedures ALANINE AMINO (ALT) (SGPT) (09/16/15) APPLY LONG ARM SPLINT (06/15/17) ASSAY OF LACTIC ACID (03/16/16) ASSAY OF VANCOMYCIN (03/25/16) ASSAY THYROID STIM HORMONE (08/07/18) COLLECT BLOOD FROM PICC (03/25/16) COMPLETE CBC AUTOMATED (08/07/18) COMPLETE CBC W/AUTO DIFF WBC (11/05/18) COMPREHEN METABOLIC PANEL (11/05/18) CT ABD & PELV W/CONTRAST (03/16/16) CT LUMBAR SPINE W/DYE (08/29/16) CULTURE OTHR SPECIMN AEROBIC (03/16/16) DRUG SCRN 1+ CLASS NONCHROMO (08/07/13) DRUG TEST PRSMV DIR OPT OBS (02/18/19) DXA BONE DENSITY AXIAL (09/14/16) ELECTROCARDIOGRAM TRACING (03/16/16) EMERGENCY DEPT VISIT (04/27/18) EMERGENCY DEPT VISIT (06/15/17) FLUOROGUIDE FOR VEIN DEVICE (03/20/16) HEPATIC FUNCTION PANEL (10/23/18) HEPATITIS C AB TEST (09/06/17) IMMUNIZATION ADMIN (03/16/16) INJ FORAMEN EPIDURAL L/S (06/04/14) INJECT SPINE CERV/THORACIC (06/04/14) INJECTION FOR MYELOGRAM (08/29/16) INSERT TEMP BLADDER CATH (04/27/18) INSJ PICC 5 YR+ W/O IMAGING (03/20/16) LIPID PANEL (09/06/17) METABOLIC PANEL TOTAL CA (10/23/18) MRI CHEST SPINE W/O DYE (08/05/14) MRI JNT OF LWR EXTRE W/O DYE (07/19/17) MRI LUMBAR SPINE W/O DYE (10/30/18) MYELOGRAPHY L-S SPINE (08/29/16) NJX INTERLAMINAR LMBR/SAC (07/18/16) OPIATES 1 OR MORE (02/07/19) PRP I/ZE INIT BLOCK >5 YR (03/16/16) ROUTINE VENIPUNCTURE (11/05/18) THER/PROPH/DIAG INJ IV PUSH (03/25/16) THER/PROPH/DIAG INJ SC/IM (03/16/16) THER/PROPH/DIAG IV INF ADDON (03/25/16) THER/PROPH/DIAG IV INF INIT (03/25/16) TISSUE EXAM BY PATHOLOGIST (03/16/16) TTE W/DOPPLER COMPLETE (11/18/18) TX/PRO/DX INJ NEW DRUG ADDON (03/16/16) TX/PRO/DX INJ SAME DRUG BRUSH MAKER MACHINE (03/16/16) TX/PROPH/DG ADDL SEQ IV INF (03/16/16) URINALYSIS AUTO W/O SCOPE (11/05/18) URINALYSIS AUTO W/SCOPE (04/27/18) URINE CULTURE/COLONY COUNT (04/27/18) US GUIDE VASCULAR ACCESS (03/20/16) US URINE CAPACITY MEASURE (04/27/18) X-RAY EXAM ABDOMEN 2 VIEWS (04/27/18) X-RAY EXAM HIP UNI 2-3 VIEWS (11/29/15) X-RAY EXAM L-2 SPINE 4/>VWS (08/29/16) X-RAY EXAM OF HIP (05/11/14) X-RAY EXAM OF HUMERUS (06/15/17) X-RAY EXAM OF KNEE 1 OR 2 (07/25/17) X-RAY EXAM OF SHOULDER (06/15/17) X-RAY EXAM OF SINUSES (09/25/13) Problem List Initiated/Reviewed/Updated: Yes Plan: Assessment: 1. Left femoral neck fracture s/p left hip gamma nail insertion POD #4. 2. Hypertension. 3. Hyperlipidemia. 4. Fever, resolved. 5. Leukocytosis, resolved. Plan: 1. For left femoral neck fracture, management per orthopedic surgery. Patient continues to work with PT. 2. For hypertension, will restart amlodipine today. Will continue to monitor and resume additional home blood pressure medications as needed. 3. DVT prophylaxis and pain control per orthopedic surgery.
[2019-04-04] MEDS: Rosuvastatin 10 MG Tab PO SCH (20:48)
[2019-04-05] MEDS: Morphine 2 MG/ML Syringe IVPUSH PRN ×6 (01:01→23:21)
[2019-04-05] MEDS: Acetaminophen/oxyCODONE 325-5 MG Tab PO PRN ×4 (03:50→23:28)
[2019-04-05] MEDS: Gabapentin 300 MG Cap PO SCH ×3 (05:19→22:08)
[2019-04-05 06:57] LABS: BLOOD UREA NITROGEN,BUN 18 mg/dL (7.0-18.0); CARBON DIOXIDE,CO2 28.4 mmol/L (21.0-32.0); CHLORIDE,CL 106 mmol/L (98-107); GLUCOSE RANDOM 122 mg/dL (74-106); POTASSIUM,K 3.7 mmol/L (3.5-5.1); SODIUM,NA 141 mmol/L (136-148)
[2019-04-05] MEDS: amLODIPine 5 MG Tab PO SCH (08:35)
[2019-04-05] MEDS: Famotidine 20 MG Tab PO SCH (08:36)
[2019-04-05] MEDS: Aspirin 325 MG Tab.EC PO SCH (08:36)
[2019-04-05] MEDS: Polyethylene Glycol 3350 Powder 17 GM Packet PO SCH (08:36)
--- NOTE | 2019-04-05 11:08 | PCM.PN ---
- General Info Date of Service: 04/05/19 Admission Dx/Problem (Free Text): Admission Diagnosis/Problem Admission Diagnosis/Problem Hip fracture requiring operative repair Subjective Update: No complaints at bedside this AM. Denied fevers, chills, shortness of breath or chest pain. Has been working with PT. Functional Status: Reports: Pain Controlled, Tolerating Diet, Ambulating, Urinating - Review of Systems General: Reports: No Symptoms HEENT: Reports: No Symptoms Pulmonary: Reports: No Symptoms Cardiovascular: Reports: No Symptoms Gastrointestinal: Reports: No Symptoms Genitourinary: Reports: No Symptoms Musculoskeletal: Reports: Leg Pain, Joint Pain, Joint Swelling Skin: Reports: No Symptoms Neurological: Reports: No Symptoms Psychiatric: Reports: No Symptoms - Patient Data Vitals - Most Recent: Last Vital Signs Temp 36.9 C 04/05/19 08:00 Pulse 85 04/05/19 08:00 Resp 16 04/05/19 08:00 BP 146/70 H 04/05/19 08:35 Pulse Ox 95 04/05/19 08:00 Weight - Most Recent: 97.522 kg I&O - Last 24 Hours: Intake & Output 04/04/19 04/05/19 04/05/19 22:59 06:59 14:59 Intake Total 900 1670 Output Total 1200 1425 Balance -300 245 Lab Results Last 24 Hours: Laboratory Results - last 24 hr 04/05/19 04/05/19 Range/Units 06:10 06:10 WBC 10.07 (4.0-11.0) K/uL RBC 3.16 L (4.50-5.90) M/uL Hgb 9.9 L (13.0-17.0) g/dL Hct 29.5 L (38.0-50.0) % MCV 93.4 (80.0-98.0) fL MCH 31.3 (27.0-32.0) pg MCHC 33.6 (31.0-37.0) g/dL RDW Std Deviation 48.6 (28.0-62.0) fl RDW Coeff of Kalyn 14 (11.0-15.0) % Plt Count 306 (150-400) K/uL MPV 9.20 (7.40-12.00) fL Neut % (Auto) 67.9 (48.0-80.0) % Lymph % (Auto) 12.0 L (16.0-40.0) % [place] % (Auto) 12.4 (0.0-15.0) % Eos % (Auto) 7.1 H (0.0-7.0) % Baso % (Auto) 0.6 (0.0-1.5) % Neut # (Auto) 6.8 H (1.4-5.7) K/uL Lymph # (Auto) 1.2 (0.6-2.4) K/uL [place] # (Auto) 1.3 H (0.0-0.8) K/uL Eos # (Auto) 0.7 (0.0-0.7) K/uL Baso # (Auto) 0.1 (0.0-0.1) K/uL Nucleated RBC % 0.0 /100WBC Nucleated RBCs # 0 K/uL Sodium 141 (136-148) mmol/L Potassium 3.7 (3.5-5.1) mmol/L Chloride 106 (98-107) mmol/L Carbon Dioxide 28.4 (21.0-32.0) mmol/L BUN 18 (7.0-18.0) mg/dL Creatinine 0.8 (0.8-1.3) mg/dL Est Cr Clr Drug Dosing 106.81 mL/min Estimated GFR (MDRD) > 60.0 ml/min Glucose 122 H (74-106) mg/dL Calcium 8.1 L (8.5-10.1) mg/dL Total Bilirubin 0.5 (0.2-1.0) mg/dL AST 26 (15-37) IU/L ALT 35 (14-63) IU/L Alkaline Phosphatase 54 (46-116) U/L Total Protein 6.1 L (6.4-8.2) g/dL Albumin 2.5 L (3.4-5.0) g/dL Globulin 3.6 (2.6-4.0) g/dL Albumin/Globulin Ratio 0.7 L (0.9-1.6) Ike Results Last 24 Hours: Microbiology 04/01/19 09:49 Aerobic Blood Culture - Preliminary Blood - Venous - Lab Draw NO GROWTH AFTER 4 DAYS Anaerobic Blood Culture - Preliminary NO GROWTH AFTER 4 DAYS 04/01/19 09:43 Aerobic Blood Culture - Preliminary Blood - Venous NO GROWTH AFTER 4 DAYS Anaerobic Blood Culture - Preliminary NO GROWTH AFTER 4 DAYS Med Orders - Current: Current Medications Al Hydroxide/Mg Hydroxide (Mag-Al Plus) 30 ml PO Q4H PRN PRN Reason: Indigestion Amlodipine Besylate (Norvasc) 10 mg PO DAILY [facility] Last Admin: 04/05/19 08:35 Dose: 10 mg Artificial Tears (Refresh Plus 0.5%) 1 each EYEBOTH Q4H PRN PRN Reason: Dry Eyes Last Admin: 04/04/19 22:24 Dose: 2 drop Aspirin (Ecotrin) 325 mg PO DAILY [facility] Last Admin: 04/05/19 08:36 Dose: 325 mg Bisacodyl (Dulcolax) 10 mg RECTAL DAILY PRN PRN Reason: Constipation Diphenhydramine HCl (Benadryl) 25 - 50 mg PO Q6H PRN PRN Reason: Itching Docusate Sodium (Colace) 100 mg PO BID PRN PRN Reason: Constipation Last Admin: 04/04/19 20:49 Dose: 100 mg Famotidine (Pepcid) 40 mg PO DAILY [facility] Last Admin: 04/05/19 08:36 Dose: 40 mg Gabapentin (Neurontin) 300 mg PO TID [facility] Last Admin: 04/05/19 05:19 Dose: 300 mg Gentamicin Sulfate (Gentak 0.3% Ophth Oint) 0 gm EYELF TID [facility] Last Admin: 04/05/19 05:48 Dose: Not Given Morphine Sulfate (Morphine) 1 - 2 mg IVPUSH Q3H PRN PRN Reason: Pain Last Admin: 04/05/19 10:59 Dose: 2 mg Ondansetron HCl (Zofran) 4 mg IVPUSH Q6H PRN PRN Reason: Nausea/Vomiting Oxycodone/Acetaminophen (Percocet 325-5 Mg) 1 tab PO QID PRN PRN Reason: Pain Last Admin: 04/05/19 09:57 Dose: 1 tab Polyethylene Glycol (Miralax) 17 gm PO DAILY [facility] Last Admin: 04/05/19 08:36 Dose: 17 gm Rosuvastatin Calcium (Crestor) 20 mg PO BEDTIME [facility] Last Admin: 04/04/19 20:48 Dose: 20 mg Scopolamine (Transderm-Scop) 1.5 mg TRDERM ONARRIVE [facility] Sodium Chloride (Saline Flush) 10 ml FLUSH ASDIRECTED PRN PRN Reason: Keep Vein Open Sodium Chloride (Saline Flush) 2.5 ml FLUSH ASDIRECTED PRN PRN Reason: Keep Vein Open Discontinued Medications Hydrocodone Bitart/Acetaminophen ([place] 325-5 Mg) 1 - 2 tab PO Q4H PRN PRN Reason: Pain Last Admin: 03/30/19 17:41 Dose: 2 tab Amlodipine Besylate (Norvasc) 10 mg PO DAILY [facility] Last Admin: 03/31/19 21:11 Dose: 10 mg Aspirin (Aspirin) 325 mg PO DAILY [facility] Last Admin: 04/01/19 08:06 Dose: 325 mg Chlorthalidone (Chlorthalidone) 25 mg PO DAILY [facility] Docusate Sodium (Colace) 100 mg PO BID PRN PRN Reason: Constipation Ephedrine Sulfate (Ephedrine Sulfate) Confirm Administered Dose 50 mg .ROUTE .STK-MED ONE Stop: 03/31/19 13:06 Fentanyl (Sublimaze) Confirm Administered Dose 100 mcg .ROUTE .STK-MED ONE Stop: 03/31/19 11:13 Fentanyl (Fentanyl) 50 mcg IVPUSH ONETIME ONE Stop: 03/31/19 13:43 Last Admin: 03/31/19 15:12 Dose: Not Given Hydromorphone HCl (Dilaudid) 1 mg IV ONETIME ONE Stop: 03/30/19 10:06 Last Admin: 03/30/19 10:13 Dose: 1 mg Hydromorphone HCl (Dilaudid) 1 mg IVPUSH ONETIME ONE Stop: 03/30/19 12:10 Last Admin: 03/30/19 12:26 Dose: 1 mg Hydromorphone HCl (Dilaudid) 1 mg IVPUSH ONETIME ONE Stop: 03/30/19 14:05 Last Admin: 03/30/19 14:10 Dose: 1 mg Hydromorphone HCl (Dilaudid) Confirm Administered Dose 2 mg .ROUTE .STK-MED ONE Stop: 03/31/19 13:00 Hydromorphone HCl (Dilaudid) Confirm Administered Dose 2 mg .ROUTE .STK-MED ONE Stop: 03/31/19 14:51 Last Admin: 03/31/19 15:12 Dose: Not Given Hydromorphone HCl (Dilaudid) 2 mg IVPUSH ONETIME ONE Stop: 03/31/19 14:54 Last Admin: 03/31/19 14:51 Dose: 1 mg Clindamycin Phosphate 600 mg/ (Premix) 50 mls @ 92.593 mls/hr IV ONCALL [facility] Tranexamic Acid 2,000 mg/ (Sodium Chloride) 120 mls @ 360 mls/hr IV ASDIRECTED ONE Stop: 03/30/19 11:47 Last Admin: 03/31/19 15:12 Dose: Not Given Ropivacaine 49.25 ml/Ketorolac Tromethamine 30 mg/Epinephrine HCl 0.5 mg/ Sodium Chloride 74.2 mls @ 50 mls/sec INJECT ASDIRECTED [facility] Stop: 03/30/19 11:31 Lactated Ringer's (Ringers, Lactated) 1,000 mls @ 75 mls/hr IV ASDIRECTED [facility] Last Admin: 03/31/19 11:57 Dose: 75 mls/hr Famotidine 40 mg/ Sodium (Chloride) 10 mls @ 300 mls/hr IV ONETIME ONE Stop: 03/30/19 11:46 Last Admin: 03/31/19 15:12 Dose: Not Given Ropivacaine 49.25 ml/Ketorolac Tromethamine 30 mg/Epinephrine HCl 0.5 mg/ Sodium Chloride 74.2 mls @ 50 mls/sec INJECT ASDIRECTED [facility] Acetaminophen (Ofirmev) Confirm Administered Dose 100 mls @ as directed .ROUTE .STK-MED ONE Stop: 03/31/19 11:17 Sodium Chloride (Normal Saline) Confirm Administered Dose 20 mls @ as directed .ROUTE .STK-MED ONE Stop: 03/31/19 13:06 Clindamycin Phosphate 600 mg/ (Premix) 50 mls @ 100 mls/hr IV Q8H [facility] Stop: 04/01/19 04:29 Last Admin: 04/01/19 03:29 Dose: 100 mls/hr Sodium Chloride (Normal Saline) 1,000 mls @ 999 mls/hr IV .Bolus ONE Stop: 04/01/19 11:19 Last Admin: 04/01/19 10:31 Dose: 999 mls/hr Vancomycin HCl 1.5 gm/ Premix 300 mls @ 150 mls/hr IV Q12H [facility] Last Admin: 04/03/19 03:08 Dose: Not Given Vancomycin HCl 1.5 gm/ Premix 300 mls @ 150 mls/hr IV Q8H [facility] Last Admin: 04/03/19 08:40 Dose: 150 mls/hr Ketorolac Tromethamine (Toradol) 15 mg IVPUSH ONARRIVE NILSON Ketorolac Tromethamine (Toradol) Confirm Administered Dose 30 mg .ROUTE .STK- MED ONE Stop: 03/31/19 12:58 Ketorolac Tromethamine (Toradol) 30 mg IVPUSH Q6H [facility] Stop: 04/01/19 05:00 Last Admin: 04/01/19 01:02 Dose: 30 mg Lisinopril (Prinivil) 40 mg PO DAILY [facility] Last Admin: 03/31/19 17:42 Dose: Not Given Lisinopril (Prinivil) 40 mg PO DAILY [facility] Midazolam HCl (Versed 1 Mg/Ml) Confirm Administered Dose 2 mg .ROUTE .STK-MED ONE Stop: 03/31/19 11:13 Morphine Sulfate (Morphine) 4 mg IVPUSH ONETIME ONE Stop: 03/30/19 09:06 Last Admin: 03/30/19 09:09 Dose: 4 mg Morphine Sulfate (Morphine) 2 mg IVPUSH Q2H PRN PRN Reason: Pain Last Admin: 03/31/19 09:36 Dose: 2 mg Ondansetron HCl (Zofran) 4 mg IVPUSH ONETIME ONE Stop: 03/30/19 09:05 Last Admin: 03/30/19 09:09 Dose: 4 mg Ondansetron HCl (Zofran) 4 mg PO Q6H PRN PRN Reason: Nausea/Vomiting Ondansetron HCl (Zofran) Confirm Administered Dose 4 mg .ROUTE .STK-MED ONE Stop: 03/31/19 11:13 Potassium Chloride (Potassium Chloride) 40 meq PO ONETIME ONE Stop: 03/30/19 13:17 Last Admin: 03/30/19 16:31 Dose: Not Given Potassium Chloride (Potassium Chloride) 40 meq PO ONETIME ONE Stop: 03/30/19 16:01 Last Admin: 03/30/19 17:37 Dose: 40 meq Potassium Chloride (Klor-Con M20) 40 meq PO ONETIME ONE Stop: 03/31/19 16:45 Last Admin: 03/31/19 17:40 Dose: 40 meq Potassium Chloride (Klor-Con M20) 40 meq PO ONETIME ONE Stop: 04/02/19 07:50 Last Admin: 04/02/19 09:14 Dose: 40 meq Propofol (Diprivan 20 Ml) Confirm Administered Dose 400 mg .ROUTE .STK-MED ONE Stop: 03/31/19 11:13 Sodium Chloride (Saline Flush) 10 ml FLUSH ASDIRECTED PRN PRN Reason: Keep Vein Open Last Admin: 03/30/19 09:10 Dose: 10 ml Sodium Chloride (Saline Flush) 2.5 ml FLUSH ASDIRECTED PRN PRN Reason: Keep Vein Open Last Admin: 03/30/19 09:10 Dose: 2.5 ml Sugammadex Sodium (Bridion) Confirm Administered Dose 200 mg .ROUTE .STK-MED ONE Stop: 03/31/19 14:09 Tranexamic Acid (Cyklokapron) Confirm Administered Dose 1,000 mg .ROUTE .STK- MED ONE Stop: 03/31/19 11:47 Vancomycin HCl (Pharmacy To Dose - Vancomycin) 1 dose .XX ONETIME ONE Stop: 04/01/19 12:09 Last Admin: 04/01/19 15:39 Dose: Not Given Vancomycin HCl (Pharmacy To Dose - Vancomycin) 1 dose .XX ASDIRECTED NILSON - Exam Quality Assessment: DVT Prophylaxis General: Alert, Oriented, Cooperative HEENT: Pupils Equal, Pupils Reactive, Other Neck: Supple, Trachea Midline Lungs: Normal Respiratory Effort GI/Abdominal Exam: No Distention Extremities: Leg Pain, Limited Range of Motion Peripheral Pulses: 1+: Posterior Tibial (L), Dorsalis Pedis (L) Skin: Warm, Dry, Intact Wound/Incisions: Healing Well, Dressing Dry and Intact Psy/Mental Status: Alert, Normal Affect, Normal Mood - Problem List & Annotations (1) Fracture, intertrochanteric, left femur SNOMED Code(s): 275999332 Code(s): S72.142A - DISPLACED INTERTROCHANTERIC FRACTURE OF LEFT FEMUR, INIT Status: Acute Current Visit: Yes Qualifiers: Encounter type: initial encounter Fracture type: closed Fracture alignment: displaced Qualified Code(s): S72.142A - Displaced intertrochanteric fracture of left femur, initial encounter for closed fracture - Problem List Review Problem List Initiated/Reviewed/Updated: Yes - Plan Plan:: A: POD 4 left hip cephallomedullary nail, was able to ambulate down the rees. will try again this evening. P: pt/ot, dvt prophylaxis, pain control
[2019-04-05 11:19] LABS: HEMOGLOBIN A1C 6.2 % (4.5-6.2)
[2019-04-05] MEDS: Docusate Sodium 100 MG Cap PO SCH (12:12)
--- NOTE | 2019-04-05 16:29 | PCM.CONSN ---
- General Info Date of Service: 04/05/19 Subjective Update: No complaints at bedside this morning. - Patient Data Vitals - Most Recent: Last Vital Signs Temp 97.7 F 04/05/19 12:00 Pulse 93 04/05/19 12:00 Resp 18 04/05/19 12:00 BP 129/62 04/05/19 12:00 Pulse Ox 96 04/05/19 12:00 Weight - Most Recent: 215 lb I&O - Last 24 Hours: Intake & Output 04/05/19 04/05/19 04/05/19 06:59 14:59 22:59 Intake Total 1670 Output Total 1425 Balance 245 Lab Results Last 24 Hours: Laboratory Results - last 24 hr 04/05/19 04/05/19 04/05/19 Range/Units 06:10 06:10 06:10 WBC 10.07 (4.0-11.0) K/uL RBC 3.16 L (4.50-5.90) M/uL Hgb 9.9 L (13.0-17.0) g/dL Hct 29.5 L (38.0-50.0) % MCV 93.4 (80.0-98.0) fL MCH 31.3 (27.0-32.0) pg MCHC 33.6 (31.0-37.0) g/dL RDW Std Deviation 48.6 (28.0-62.0) fl RDW Coeff of Kalyn 14 (11.0-15.0) % Plt Count 306 (150-400) K/uL MPV 9.20 (7.40-12.00) fL Neut % (Auto) 67.9 (48.0-80.0) % Lymph % (Auto) 12.0 L (16.0-40.0) % [place] % (Auto) 12.4 (0.0-15.0) % Eos % (Auto) 7.1 H (0.0-7.0) % Baso % (Auto) 0.6 (0.0-1.5) % Neut # (Auto) 6.8 H (1.4-5.7) K/uL Lymph # (Auto) 1.2 (0.6-2.4) K/uL [place] # (Auto) 1.3 H (0.0-0.8) K/uL Eos # (Auto) 0.7 (0.0-0.7) K/uL Baso # (Auto) 0.1 (0.0-0.1) K/uL Nucleated RBC % 0.0 /100WBC Nucleated RBCs # 0 K/uL Sodium 141 (136-148) mmol/L Potassium 3.7 (3.5-5.1) mmol/L Chloride 106 (98-107) mmol/L Carbon Dioxide 28.4 (21.0-32.0) mmol/L BUN 18 (7.0-18.0) mg/dL Creatinine 0.8 (0.8-1.3) mg/dL Est Cr Clr Drug Dosing 106.81 mL/min Estimated GFR (MDRD) > 60.0 ml/min Glucose 122 H (74-106) mg/dL Hemoglobin A1c 6.2 (4.5-6.2) % Calcium 8.1 L (8.5-10.1) mg/dL Total Bilirubin 0.5 (0.2-1.0) mg/dL AST 26 (15-37) IU/L ALT 35 (14-63) IU/L Alkaline Phosphatase 54 (46-116) U/L Total Protein 6.1 L (6.4-8.2) g/dL Albumin 2.5 L (3.4-5.0) g/dL Globulin 3.6 (2.6-4.0) g/dL Albumin/Globulin Ratio 0.7 L (0.9-1.6) Ike Results Last 24 Hours: Microbiology 04/01/19 09:49 Aerobic Blood Culture - Preliminary Blood - Venous - Lab Draw NO GROWTH AFTER 4 DAYS Anaerobic Blood Culture - Preliminary NO GROWTH AFTER 4 DAYS 04/01/19 09:43 Aerobic Blood Culture - Preliminary Blood - Venous NO GROWTH AFTER 4 DAYS Anaerobic Blood Culture - Preliminary NO GROWTH AFTER 4 DAYS Med Orders - Current: Current Medications Al Hydroxide/Mg Hydroxide (Mag-Al Plus) 30 ml PO Q4H PRN PRN Reason: Indigestion Amlodipine Besylate (Norvasc) 10 mg PO DAILY [facility] Last Admin: 04/05/19 08:35 Dose: 10 mg Artificial Tears (Refresh Plus 0.5%) 1 each EYEBOTH Q4H PRN PRN Reason: Dry Eyes Last Admin: 12/06/19 22:24 Dose: 2 drop Aspirin (Ecotrin) 325 mg PO DAILY [facility] Last Admin: 04/05/19 08:36 Dose: 325 mg Bisacodyl (Dulcolax) 10 mg RECTAL DAILY PRN PRN Reason: Constipation Chlorthalidone (Chlorthalidone) 25 mg PO DAILY [facility] Diphenhydramine HCl (Benadryl) 25 - 50 mg PO Q6H PRN PRN Reason: Itching Docusate Sodium (Colace) 100 mg PO BID PRN PRN Reason: Constipation Last Admin: 04/04/19 20:49 Dose: 100 mg Docusate Sodium (Colace) 100 mg PO DAILY [facility] Last Admin: 04/05/19 12:12 Dose: 100 mg Famotidine (Pepcid) 40 mg PO DAILY [facility] Last Admin: 04/05/19 08:36 Dose: 40 mg Gabapentin (Neurontin) 300 mg PO TID [facility] Last Admin: 04/05/19 13:24 Dose: 300 mg Gentamicin Sulfate (Gentak 0.3% Ophth Oint) 0 gm EYELF TID [facility] Last Admin: 04/05/19 13:25 Dose: Not Given Lisinopril (Prinivil) 40 mg PO DAILY [facility] Morphine Sulfate (Morphine) 1 - 2 mg IVPUSH Q3H PRN PRN Reason: Pain Last Admin: 04/05/19 14:44 Dose: 2 mg Ondansetron HCl (Zofran) 4 mg IVPUSH Q6H PRN PRN Reason: Nausea/Vomiting Oxycodone/Acetaminophen (Percocet 325-5 Mg) 1 tab PO QID PRN PRN Reason: Pain Last Admin: 04/05/19 09:57 Dose: 1 tab Polyethylene Glycol (Miralax) 17 gm PO DAILY [facility] Last Admin: 04/05/19 08:36 Dose: 17 gm Rosuvastatin Calcium (Crestor) 20 mg PO BEDTIME [facility] Last Admin: 04/04/19 20:48 Dose: 20 mg Scopolamine (Transderm-Scop) 1.5 mg TRDERM ONARRIVE [facility] Sodium Chloride (Saline Flush) 10 ml FLUSH ASDIRECTED PRN PRN Reason: Keep Vein Open Sodium Chloride (Saline Flush) 2.5 ml FLUSH ASDIRECTED PRN PRN Reason: Keep Vein Open Discontinued Medications Hydrocodone Bitart/Acetaminophen ([place] 325-5 Mg) 1 - 2 tab PO Q4H PRN PRN Reason: Pain Last Admin: 03/30/19 17:41 Dose: 2 tab Amlodipine Besylate (Norvasc) 10 mg PO DAILY [facility] Last Admin: 03/31/19 21:11 Dose: 10 mg Aspirin (Aspirin) 325 mg PO DAILY [facility] Last Admin: 04/01/19 08:06 Dose: 325 mg Chlorthalidone (Chlorthalidone) 25 mg PO DAILY [facility] Docusate Sodium (Colace) 100 mg PO BID PRN PRN Reason: Constipation Ephedrine Sulfate (Ephedrine Sulfate) Confirm Administered Dose 50 mg .ROUTE .STK-MED ONE Stop: 03/31/19 13:06 Fentanyl (Sublimaze) Confirm Administered Dose 100 mcg .ROUTE .STK-MED ONE Stop: 03/31/19 11:13 Fentanyl (Fentanyl) 50 mcg IVPUSH ONETIME ONE Stop: 03/31/19 13:43 Last Admin: 03/31/19 15:12 Dose: Not Given Hydromorphone HCl (Dilaudid) 1 mg IV ONETIME ONE Stop: 03/30/19 10:06 Last Admin: 03/30/19 10:13 Dose: 1 mg Hydromorphone HCl (Dilaudid) 1 mg IVPUSH ONETIME ONE Stop: 03/30/19 12:10 Last Admin: 03/30/19 12:26 Dose: 1 mg Hydromorphone HCl (Dilaudid) 1 mg IVPUSH ONETIME ONE Stop: 03/30/19 14:05 Last Admin: 03/30/19 14:10 Dose: 1 mg Hydromorphone HCl (Dilaudid) Confirm Administered Dose 2 mg .ROUTE .STK-MED ONE Stop: 03/31/19 13:00 Hydromorphone HCl (Dilaudid) Confirm Administered Dose 2 mg .ROUTE .STK-MED ONE Stop: 03/31/19 14:51 Last Admin: 03/31/19 15:12 Dose: Not Given Hydromorphone HCl (Dilaudid) 2 mg IVPUSH ONETIME ONE Stop: 03/31/19 14:54 Last Admin: 03/31/19 14:51 Dose: 1 mg Clindamycin Phosphate 600 mg/ (Premix) 50 mls @ 92.593 mls/hr IV ONCALL [facility] Tranexamic Acid 2,000 mg/ (Sodium Chloride) 120 mls @ 360 mls/hr IV ASDIRECTED ONE Stop: 03/30/19 11:47 Last Admin: 03/31/19 15:12 Dose: Not Given Ropivacaine 49.25 ml/Ketorolac Tromethamine 30 mg/Epinephrine HCl 0.5 mg/ Sodium Chloride 74.2 mls @ 50 mls/sec INJECT ASDIRECTED [facility] Stop: 03/30/19 11:31 Lactated Ringer's (Ringers, Lactated) 1,000 mls @ 75 mls/hr IV ASDIRECTED [facility] Last Admin: 03/31/19 11:57 Dose: 75 mls/hr Famotidine 40 mg/ Sodium (Chloride) 10 mls @ 300 mls/hr IV ONETIME ONE Stop: 03/30/19 11:46 Last Admin: 03/31/19 15:12 Dose: Not Given Ropivacaine 49.25 ml/Ketorolac Tromethamine 30 mg/Epinephrine HCl 0.5 mg/ Sodium Chloride 74.2 mls @ 50 mls/sec INJECT ASDIRECTED [facility] Acetaminophen (Ofirmev) Confirm Administered Dose 100 mls @ as directed .ROUTE .STK-MED ONE Stop: 03/31/19 11:17 Sodium Chloride (Normal Saline) Confirm Administered Dose 20 mls @ as directed .ROUTE .STK-MED ONE Stop: 03/31/19 13:06 Clindamycin Phosphate 600 mg/ (Premix) 50 mls @ 100 mls/hr IV Q8H [facility] Stop: 04/01/19 04:29 Last Admin: 04/01/19 03:29 Dose: 100 mls/hr Sodium Chloride (Normal Saline) 1,000 mls @ 999 mls/hr IV .Bolus ONE Stop: 04/01/19 11:19 Last Admin: 04/01/19 10:31 Dose: 999 mls/hr Vancomycin HCl 1.5 gm/ Premix 300 mls @ 150 mls/hr IV Q12H [facility] Last Admin: 04/03/19 03:08 Dose: Not Given Vancomycin HCl 1.5 gm/ Premix 300 mls @ 150 mls/hr IV Q8H [facility] Last Admin: 04/03/19 08:40 Dose: 150 mls/hr Ketorolac Tromethamine (Toradol) 15 mg IVPUSH ONARRIVE [facility] Ketorolac Tromethamine (Toradol) Confirm Administered Dose 30 mg .ROUTE .STK- MED ONE Stop: 03/31/19 12:58 Ketorolac Tromethamine (Toradol) 30 mg IVPUSH Q6H [facility] Stop: 04/01/19 05:00 Last Admin: 04/01/19 01:02 Dose: 30 mg Lisinopril (Prinivil) 40 mg PO DAILY [facility] Last Admin: 03/31/19 17:42 Dose: Not Given Lisinopril (Prinivil) 40 mg PO DAILY [facility] Midazolam HCl (Versed 1 Mg/Ml) Confirm Administered Dose 2 mg .ROUTE .STK-MED ONE Stop: 03/31/19 11:13 Morphine Sulfate (Morphine) 4 mg IVPUSH ONETIME ONE Stop: 03/30/19 09:06 Last Admin: 03/30/19 09:09 Dose: 4 mg Morphine Sulfate (Morphine) 2 mg IVPUSH Q2H PRN PRN Reason: Pain Last Admin: 03/31/19 09:36 Dose: 2 mg Ondansetron HCl (Zofran) 4 mg IVPUSH ONETIME ONE Stop: 03/30/19 09:05 Last Admin: 03/30/19 09:09 Dose: 4 mg Ondansetron HCl (Zofran) 4 mg PO Q6H PRN PRN Reason: Nausea/Vomiting Ondansetron HCl (Zofran) Confirm Administered Dose 4 mg .ROUTE .STK-MED ONE Stop: 03/31/19 11:13 Potassium Chloride (Potassium Chloride) 40 meq PO ONETIME ONE Stop: 03/30/19 13:17 Last Admin: 03/30/19 16:31 Dose: Not Given Potassium Chloride (Potassium Chloride) 40 meq PO ONETIME ONE Stop: 03/30/19 16:01 Last Admin: 03/30/19 17:37 Dose: 40 meq Potassium Chloride (Klor-Con M20) 40 meq PO ONETIME ONE Stop: 03/31/19 16:45 Last Admin: 03/31/19 17:40 Dose: 40 meq Potassium Chloride (Klor-Con M20) 40 meq PO ONETIME ONE Stop: 04/02/19 07:50 Last Admin: 04/02/19 09:14 Dose: 40 meq Propofol (Diprivan 20 Ml) Confirm Administered Dose 400 mg .ROUTE .STK-MED ONE Stop: 03/31/19 11:13 Sodium Chloride (Saline Flush) 10 ml FLUSH ASDIRECTED PRN PRN Reason: Keep Vein Open Last Admin: 03/30/19 09:10 Dose: 10 ml Sodium Chloride (Saline Flush) 2.5 ml FLUSH ASDIRECTED PRN PRN Reason: Keep Vein Open Last Admin: 03/30/19 09:10 Dose: 2.5 ml Sugammadex Sodium ([place]) Confirm Administered Dose 200 mg .ROUTE .STK-MED ONE Stop: 03/31/19 14:09 Tranexamic Acid (Cyklokapron) Confirm Administered Dose 1,000 mg .ROUTE .STK- MED ONE Stop: 03/31/19 11:47 Vancomycin HCl (Pharmacy To Dose - Vancomycin) 1 dose .XX ONETIME ONE Stop: 04/01/19 12:09 Last Admin: 04/01/19 15:39 Dose: Not Given Vancomycin HCl (Pharmacy To Dose - Vancomycin) 1 dose .XX ASDIRECTED [facility] - Exam General: Alert, Oriented, Cooperative, No Acute Distress Lungs: Clear to Auscultation, Normal Respiratory Effort Cardiovascular: Regular Rate, Regular Rhythm GI/Abdominal Exam: Normal Bowel Sounds, Soft, Non-Tender, No Distention Skin: Warm, Dry, Intact Consult PN Assessment/Plan Procedures: Procedures ALANINE AMINO (ALT) (SGPT) (09/16/15) APPLY LONG ARM SPLINT (06/15/17) ASSAY OF LACTIC ACID (03/16/16) ASSAY OF VANCOMYCIN (03/25/16) ASSAY THYROID STIM HORMONE (08/07/18) COLLECT BLOOD FROM PICC (03/25/16) COMPLETE CBC AUTOMATED (08/07/18) COMPLETE CBC W/AUTO DIFF WBC (11/05/18) COMPREHEN METABOLIC PANEL (11/05/18) CT ABD & PELV W/CONTRAST (03/16/16) CT LUMBAR SPINE W/DYE (08/29/16) CULTURE OTHR SPECIMN AEROBIC (03/16/16) DRUG SCRN 1+ CLASS NONCHROMO (08/07/13) DRUG TEST PRSMV DIR OPT OBS (02/18/19) DXA BONE DENSITY AXIAL (09/14/16) ELECTROCARDIOGRAM TRACING (03/16/16) EMERGENCY DEPT VISIT (04/27/18) EMERGENCY DEPT VISIT (06/15/17) FLUOROGUIDE FOR VEIN DEVICE (03/20/16) HEPATIC FUNCTION PANEL (10/23/18) HEPATITIS C AB TEST (09/06/17) IMMUNIZATION ADMIN (03/16/16) INJ FORAMEN EPIDURAL L/S (06/04/14) INJECT SPINE CERV/THORACIC (06/04/14) INJECTION FOR MYELOGRAM (08/29/16) INSERT TEMP BLADDER CATH (04/27/18) INSJ PICC 5 YR+ W/O IMAGING (03/20/16) LIPID PANEL (09/06/17) METABOLIC PANEL TOTAL CA (10/23/18) MRI CHEST SPINE W/O DYE (08/05/14) MRI JNT OF LWR EXTRE W/O DYE (07/19/17) MRI LUMBAR SPINE W/O DYE (10/30/18) MYELOGRAPHY L-S SPINE (08/29/16) NJX INTERLAMINAR LMBR/SAC (07/18/16) OPIATES 1 OR MORE (02/07/19) PRP I/ZE INIT BLOCK >5 YR (03/16/16) ROUTINE VENIPUNCTURE (11/05/18) THER/PROPH/DIAG INJ IV PUSH (03/25/16) THER/PROPH/DIAG INJ SC/IM (03/16/16) THER/PROPH/DIAG IV INF ADDON (03/25/16) THER/PROPH/DIAG IV INF INIT (03/25/16) TISSUE EXAM BY PATHOLOGIST (03/16/16) TTE W/DOPPLER COMPLETE (11/18/18) TX/PRO/DX INJ NEW DRUG ADDON (03/16/16) TX/PRO/DX INJ SAME DRUG SURVEY FIELD TECHNICIAN (03/16/16) TX/PROPH/DG ADDL SEQ IV INF (03/16/16) URINALYSIS AUTO W/O SCOPE (11/05/18) URINALYSIS AUTO W/SCOPE (04/27/18) URINE CULTURE/COLONY COUNT (04/27/18) US GUIDE VASCULAR ACCESS (03/20/16) US URINE CAPACITY MEASURE (04/27/18) X-RAY EXAM ABDOMEN 2 VIEWS (04/27/18) X-RAY EXAM HIP UNI 2-3 VIEWS (11/29/15) X-RAY EXAM L-2 SPINE 4/>VWS (08/29/16) X-RAY EXAM OF HIP (05/11/14) X-RAY EXAM OF HUMERUS (06/15/17) X-RAY EXAM OF KNEE 1 OR 2 (07/25/17) X-RAY EXAM OF SHOULDER (06/15/17) X-RAY EXAM OF SINUSES (09/25/13) Problem List Initiated/Reviewed/Updated: Yes My Orders Last 24 Hours: My Active Orders 04/05/19 11:15 Docusate Sodium [Colace] 100 mg PO DAILY 04/06/19 09:00 Chlorthalidone 25 mg PO DAILY Lisinopril [Prinivil] 40 mg PO DAILY Plan: Assessment: 1. Left femoral neck fracture s/p left hip gamma nail insertion POD #5. 2. Hypertension, stable. 3. Hyperlipidemia. Plan: 1. For left femoral neck fracture, management per orthopedic surgery. 2. For hypertension, will resume home dose of chlorthalidone and lisinopril today. Amlodipine resumed yesterday. 3. DVT prophylaxis and pain control per orthopedic surgery. 4. Will sign off for now as patient is medically stable. Please feel free to contact if reevaluation is required and we are more than happy to do so. Thank you for the opportunity to participate in the care of this patient.
--- NOTE | 2019-04-05 19:03 | PCM.SN ---
- Free Text/Narrative Note: Requested to start new IV after 3 failed attempts. #22 L have under sterile technique. Flushed. Secured. Tolerated well.
[2019-04-05] MEDS: Rosuvastatin 10 MG Tab PO SCH (22:08)
[2019-04-06] MEDS: Morphine 2 MG/ML Syringe IVPUSH PRN ×4 (02:31→21:37)
[2019-04-06] MEDS: Gabapentin 300 MG Cap PO SCH ×3 (06:07→21:36)
[2019-04-06] MEDS: Acetaminophen/oxyCODONE 325-5 MG Tab PO PRN ×3 (06:44→19:26)
[2019-04-06] MEDS: Famotidine 20 MG Tab PO SCH (08:31)
[2019-04-06] MEDS: Lisinopril 10 MG Tab PO SCH (08:32)
[2019-04-06] MEDS: Aspirin 325 MG Tab.EC PO SCH (08:33)
[2019-04-06] MEDS: amLODIPine 5 MG Tab PO SCH (08:33)
[2019-04-06] MEDS: Docusate Sodium 100 MG Cap PO SCH (08:33)
[2019-04-06] MEDS: Polyethylene Glycol 3350 Powder 17 GM Packet PO SCH (08:34)
[2019-04-06] MEDS: Chlorthalidone 25 MG Tab PO SCH (08:34)
[2019-04-06] MEDS: Rosuvastatin 10 MG Tab PO SCH (21:35)
[2019-04-07] MEDS: Acetaminophen/oxyCODONE 325-5 MG Tab PO PRN ×5 (01:47→23:12)
[2019-04-07] MEDS: Gabapentin 300 MG Cap PO SCH ×3 (05:29→21:40)
[2019-04-07] MEDS: Morphine 2 MG/ML Syringe IVPUSH PRN ×2 (05:30→14:58)
[2019-04-07] MEDS: Famotidine 20 MG Tab PO SCH (09:21)
[2019-04-07] MEDS: Docusate Sodium 100 MG Cap PO SCH (09:21)
[2019-04-07] MEDS: Aspirin 325 MG Tab.EC PO SCH (09:22)
[2019-04-07] MEDS: Polyethylene Glycol 3350 Powder 17 GM Packet PO SCH (09:26)
[2019-04-07] MEDS: Chlorthalidone 25 MG Tab PO SCH (09:28)
[2019-04-07] MEDS: Lisinopril 10 MG Tab PO SCH (09:28)
[2019-04-07] MEDS: amLODIPine 5 MG Tab PO SCH (09:29)
--- NOTE | 2019-04-07 09:31 | PCM.PN ---
- General Info Date of Service: 04/06/19 Admission Dx/Problem (Free Text): Admission Diagnosis/Problem Admission Diagnosis/Problem Hip fracture requiring operative repair Functional Status: Reports: Pain Controlled, Tolerating Diet, Ambulating - Review of Systems General: Reports: No Symptoms HEENT: Reports: No Symptoms Pulmonary: Reports: No Symptoms Cardiovascular: Reports: No Symptoms Gastrointestinal: Reports: No Symptoms Genitourinary: Reports: No Symptoms Musculoskeletal: Reports: Back Pain, Leg Pain, Joint Swelling Skin: Reports: No Symptoms Neurological: Reports: No Symptoms Psychiatric: Reports: No Symptoms - Patient Data Vitals - Most Recent: Last Vital Signs Temp 36.8 C 04/07/19 07:47 Pulse 83 04/07/19 09:22 Resp 18 04/07/19 07:47 BP 127/63 04/07/19 09:29 Pulse Ox 95 04/07/19 07:47 Weight - Most Recent: 97.522 kg I&O - Last 24 Hours: Intake & Output 04/06/19 04/07/19 04/07/19 22:59 06:59 14:59 Intake Total 1200 900 Output Total 1020 1825 Balance 180 -925 Ike Results Last 24 Hours: Microbiology 04/01/19 09:49 Aerobic Blood Culture - Final Blood - Venous - Lab Draw NO GROWTH AFTER 5 DAYS Anaerobic Blood Culture - Final NO GROWTH AFTER 5 DAYS 04/01/19 09:43 Aerobic Blood Culture - Final Blood - Venous NO GROWTH AFTER 5 DAYS Anaerobic Blood Culture - Final NO GROWTH AFTER 5 DAYS Med Orders - Current: Current Medications Al Hydroxide/Mg Hydroxide (Mag-Al Plus) 30 ml PO Q4H PRN PRN Reason: Indigestion Amlodipine Besylate (Norvasc) 10 mg PO DAILY [facility] Last Admin: 04/07/19 09:29 Dose: 10 mg Artificial Tears (Refresh Plus 0.5%) 1 each EYEBOTH Q4H PRN PRN Reason: Dry Eyes Last Admin: 04/04/19 22:24 Dose: 2 drop Aspirin (Ecotrin) 325 mg PO DAILY [facility] Last Admin: 04/07/19 09:22 Dose: 325 mg Bisacodyl (Dulcolax) 10 mg RECTAL DAILY PRN PRN Reason: Constipation Chlorthalidone (Chlorthalidone) 25 mg PO DAILY [facility] Last Admin: 04/07/19 09:28 Dose: 25 mg Diphenhydramine HCl (Benadryl) 25 - 50 mg PO Q6H PRN PRN Reason: Itching Docusate Sodium (Colace) 100 mg PO BID PRN PRN Reason: Constipation Last Admin: 04/04/19 20:49 Dose: 100 mg Docusate Sodium (Colace) 100 mg PO DAILY [facility] Last Admin: 04/07/19 09:21 Dose: 100 mg Famotidine (Pepcid) 40 mg PO DAILY [facility] Last Admin: 04/07/19 09:21 Dose: 40 mg Gabapentin (Neurontin) 300 mg PO TID [facility] Last Admin: 04/07/19 05:29 Dose: 300 mg Gentamicin Sulfate (Gentak 0.3% Ophth Oint) 0 gm EYELF TID [facility] Last Admin: 04/07/19 05:47 Dose: Not Given Lisinopril (Prinivil) 40 mg PO DAILY [facility] Last Admin: 04/07/19 09:28 Dose: 40 mg Morphine Sulfate (Morphine) 1 - 2 mg IVPUSH Q3H PRN PRN Reason: Pain Last Admin: 04/07/19 05:30 Dose: 1 mg Ondansetron HCl (Zofran) 4 mg IVPUSH Q6H PRN PRN Reason: Nausea/Vomiting Oxycodone/Acetaminophen (Percocet 325-5 Mg) 1 tab PO QID PRN PRN Reason: Pain Last Admin: 04/07/19 08:51 Dose: 1 tab Polyethylene Glycol (Miralax) 17 gm PO DAILY [facility] Last Admin: 04/07/19 09:26 Dose: 17 gm Rosuvastatin Calcium (Crestor) 20 mg PO BEDTIME [facility] Last Admin: 04/06/19 21:35 Dose: 20 mg Sodium Chloride (Saline Flush) 10 ml FLUSH ASDIRECTED PRN PRN Reason: Keep Vein Open Sodium Chloride (Saline Flush) 2.5 ml FLUSH ASDIRECTED PRN PRN Reason: Keep Vein Open Discontinued Medications Hydrocodone Bitart/Acetaminophen ([place] 325-5 Mg) 1 - 2 tab PO Q4H PRN PRN Reason: Pain Last Admin: 03/30/19 17:41 Dose: 2 tab Amlodipine Besylate (Norvasc) 10 mg PO DAILY [facility] Last Admin: 03/31/19 21:11 Dose: 10 mg Aspirin (Aspirin) 325 mg PO DAILY [facility] Last Admin: 04/01/19 08:06 Dose: 325 mg Chlorthalidone (Chlorthalidone) 25 mg PO DAILY [facility] Docusate Sodium (Colace) 100 mg PO BID PRN PRN Reason: Constipation Ephedrine Sulfate (Ephedrine Sulfate) Confirm Administered Dose 50 mg .ROUTE .STK-MED ONE Stop: 03/31/19 13:06 Fentanyl (Sublimaze) Confirm Administered Dose 100 mcg .ROUTE .STK-MED ONE Stop: 03/31/19 11:13 Fentanyl (Fentanyl) 50 mcg IVPUSH ONETIME ONE Stop: 03/31/19 13:43 Last Admin: 03/31/19 15:12 Dose: Not Given Hydromorphone HCl (Dilaudid) 1 mg IV ONETIME ONE Stop: 03/30/19 10:06 Last Admin: 03/30/19 10:13 Dose: 1 mg Hydromorphone HCl (Dilaudid) 1 mg IVPUSH ONETIME ONE Stop: 03/30/19 12:10 Last Admin: 03/30/19 12:26 Dose: 1 mg Hydromorphone HCl (Dilaudid) 1 mg IVPUSH ONETIME ONE Stop: 03/30/19 14:05 Last Admin: 03/30/19 14:10 Dose: 1 mg Hydromorphone HCl (Dilaudid) Confirm Administered Dose 2 mg .ROUTE .STK-MED ONE Stop: 03/31/19 13:00 Hydromorphone HCl (Dilaudid) Confirm Administered Dose 2 mg .ROUTE .STK-MED ONE Stop: 03/31/19 14:51 Last Admin: 03/31/19 15:12 Dose: Not Given Hydromorphone HCl (Dilaudid) 2 mg IVPUSH ONETIME ONE Stop: 03/31/19 14:54 Last Admin: 03/31/19 14:51 Dose: 1 mg Clindamycin Phosphate 600 mg/ (Premix) 50 mls @ 92.593 mls/hr IV ONCALL [facility] Tranexamic Acid 2,000 mg/ (Sodium Chloride) 120 mls @ 360 mls/hr IV ASDIRECTED ONE Stop: 03/30/19 11:47 Last Admin: 03/31/19 15:12 Dose: Not Given Ropivacaine 49.25 ml/Ketorolac Tromethamine 30 mg/Epinephrine HCl 0.5 mg/ Sodium Chloride 74.2 mls @ 50 mls/sec INJECT ASDIRECTED [facility] Stop: 03/30/19 11:31 Lactated Ringer's (Ringers, Lactated) 1,000 mls @ 75 mls/hr IV ASDIRECTED [facility] Last Admin: 03/31/19 11:57 Dose: 75 mls/hr Famotidine 40 mg/ Sodium (Chloride) 10 mls @ 300 mls/hr IV ONETIME ONE Stop: 03/30/19 11:46 Last Admin: 03/31/19 15:12 Dose: Not Given Ropivacaine 49.25 ml/Ketorolac Tromethamine 30 mg/Epinephrine HCl 0.5 mg/ Sodium Chloride 74.2 mls @ 50 mls/sec INJECT ASDIRECTED [facility] Acetaminophen (Ofirmev) Confirm Administered Dose 100 mls @ as directed .ROUTE .STK-MED ONE Stop: 03/31/19 11:17 Sodium Chloride (Normal Saline) Confirm Administered Dose 20 mls @ as directed .ROUTE .STK-MED ONE Stop: 03/31/19 13:06 Clindamycin Phosphate 600 mg/ (Premix) 50 mls @ 100 mls/hr IV Q8H [facility] Stop: 04/01/19 04:29 Last Admin: 04/01/19 03:29 Dose: 100 mls/hr Sodium Chloride (Normal Saline) 1,000 mls @ 999 mls/hr IV .Bolus ONE Stop: 04/01/19 11:19 Last Admin: 04/01/19 10:31 Dose: 999 mls/hr Vancomycin HCl 1.5 gm/ Premix 300 mls @ 150 mls/hr IV Q12H [facility] Last Admin: 04/03/19 03:08 Dose: Not Given Vancomycin HCl 1.5 gm/ Premix 300 mls @ 150 mls/hr IV Q8H [facility] Last Admin: 04/03/19 08:40 Dose: 150 mls/hr Ketorolac Tromethamine (Toradol) 15 mg IVPUSH ONARRIVE [facility] Ketorolac Tromethamine (Toradol) Confirm Administered Dose 30 mg .ROUTE .STK- MED ONE Stop: 03/31/19 12:58 Ketorolac Tromethamine (Toradol) 30 mg IVPUSH Q6H [facility] Stop: 04/01/19 05:00 Last Admin: 04/01/19 01:02 Dose: 30 mg Lisinopril (Prinivil) 40 mg PO DAILY [facility] Last Admin: 03/31/19 17:42 Dose: Not Given Lisinopril (Prinivil) 40 mg PO DAILY [facility] Midazolam HCl (Versed 1 Mg/Ml) Confirm Administered Dose 2 mg .ROUTE .STK-MED ONE Stop: 03/31/19 11:13 Morphine Sulfate (Morphine) 4 mg IVPUSH ONETIME ONE Stop: 03/30/19 09:06 Last Admin: 03/30/19 09:09 Dose: 4 mg Morphine Sulfate (Morphine) 2 mg IVPUSH Q2H PRN PRN Reason: Pain Last Admin: 03/31/19 09:36 Dose: 2 mg Ondansetron HCl (Zofran) 4 mg IVPUSH ONETIME ONE Stop: 03/30/19 09:05 Last Admin: 03/30/19 09:09 Dose: 4 mg Ondansetron HCl (Zofran) 4 mg PO Q6H PRN PRN Reason: Nausea/Vomiting Ondansetron HCl (Zofran) Confirm Administered Dose 4 mg .ROUTE .STK-MED ONE Stop: 03/31/19 11:13 Potassium Chloride (Potassium Chloride) 40 meq PO ONETIME ONE Stop: 03/30/19 13:17 Last Admin: 03/30/19 16:31 Dose: Not Given Potassium Chloride (Potassium Chloride) 40 meq PO ONETIME ONE Stop: 03/30/19 16:01 Last Admin: 03/30/19 17:37 Dose: 40 meq Potassium Chloride (Klor-Con M20) 40 meq PO ONETIME ONE Stop: 03/31/19 16:45 Last Admin: 03/31/19 17:40 Dose: 40 meq Potassium Chloride (Klor-Con M20) 40 meq PO ONETIME ONE Stop: 04/02/19 07:50 Last Admin: 04/02/19 09:14 Dose: 40 meq Propofol (Diprivan 20 Ml) Confirm Administered Dose 400 mg .ROUTE .STK-MED ONE Stop: 03/31/19 11:13 Scopolamine (Transderm-Scop) 1.5 mg TRDERM ONARRIVE NILSON Sodium Chloride (Saline Flush) 10 ml FLUSH ASDIRECTED PRN PRN Reason: Keep Vein Open Last Admin: 03/30/19 09:10 Dose: 10 ml Sodium Chloride (Saline Flush) 2.5 ml FLUSH ASDIRECTED PRN PRN Reason: Keep Vein Open Last Admin: 03/30/19 09:10 Dose: 2.5 ml Sugammadex Sodium (Bridion) Confirm Administered Dose 200 mg .ROUTE .STK-MED ONE Stop: 03/31/19 14:09 Tranexamic Acid (Cyklokapron) Confirm Administered Dose 1,000 mg .ROUTE .STK- MED ONE Stop: 03/31/19 11:47 Vancomycin HCl (Pharmacy To Dose - Vancomycin) 1 dose .XX ONETIME ONE Stop: 04/01/19 12:09 Last Admin: 04/01/19 15:39 Dose: Not Given Vancomycin HCl (Pharmacy To Dose - Vancomycin) 1 dose .XX ASDIRECTED NILSON - Exam Quality Assessment: DVT Prophylaxis General: Alert, Oriented, Cooperative, Mild Distress HEENT: Pupils Equal, Pupils Reactive, EOMI Neck: Supple, Trachea Midline GI/Abdominal Exam: No Distention Peripheral Pulses: 2+: Dorsalis Pedis (L) Skin: Warm, Dry, Intact Wound/Incisions: Healing Well, Dressing Dry and Intact, No Drainage Neurological: No New Focal Deficit Psy/Mental Status: Alert, Normal Affect, Normal Mood - Problem List & Annotations (1) Fracture, intertrochanteric, left femur SNOMED Code(s): 307092725 Code(s): S72.142A - DISPLACED INTERTROCHANTERIC FRACTURE OF LEFT FEMUR, INIT Status: Acute Current Visit: Yes Qualifiers: Encounter type: initial encounter Fracture type: closed Fracture alignment: displaced Qualified Code(s): S72.142A - Displaced intertrochanteric fracture of left femur, initial encounter for closed fracture - Problem List Review Problem List Initiated/Reviewed/Updated: Yes - Plan Plan:: A: POD 5 left hip cephallomedullary nail, was able to ambulate down the rees. will try again this evening. P: pt/ot, dvt prophylaxis, pain control, will DC to home once ramp installed
[2019-04-07] MEDS ORDERED: Ibuprofen 600 MG Tab PO PRN (15:11)
[2019-04-07] MEDS: Rosuvastatin 10 MG Tab PO SCH (21:38)
[2019-04-08] MEDS: Gabapentin 300 MG Cap PO SCH ×2 (05:21→13:43)
[2019-04-08] MEDS: Acetaminophen/oxyCODONE 325-5 MG Tab PO PRN ×2 (05:21→15:21)
[2019-04-08] MEDS: Aspirin 325 MG Tab.EC PO SCH (09:54)
[2019-04-08] MEDS: Polyethylene Glycol 3350 Powder 17 GM Packet PO SCH ×2 (09:54→10:01)
[2019-04-08] MEDS: Chlorthalidone 25 MG Tab PO SCH (09:54)
[2019-04-08] MEDS: Lisinopril 10 MG Tab PO SCH (09:55)
[2019-04-08] MEDS: Docusate Sodium 100 MG Cap PO SCH (09:55)
[2019-04-08] MEDS: Famotidine 20 MG Tab PO SCH (09:56)
[2019-04-08] MEDS: amLODIPine 5 MG Tab PO SCH (09:56)
[2019-04-08 16:17] VITALS: BP 125/55; PULSE 86
--- NOTE | 2019-04-10 13:24 | DISCH ---
DATE OF DISCHARGE: 04/08/2019 PRIMARY CARE PHYSICIAN: Akbar Wallace M.D. Discharging physician Dr. Kahlil Landon. ADMITTING DIAGNOSIS: Hip fracture requiring operative repair. OTHER MEDICAL DIAGNOSES: 1. Hypertension. 2. Hyperlipidemia. DISCHARGE MEDICAL DIAGNOSES: 1. Left hip gamma nail, status post hip fracture. 2. Hypertension. 3. Hyperlipidemia. HISTORY: This 64-year-old male was admitted to hospitalist services after he sustained a left hip fracture. 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 He underwent left hip gamma nail placement by Dr. Arturo Bertrand on 03/30/2019. No known surgical complications. HOSPITAL COURSE: Postoperatively, the patient did well. Antibiotic coverage included 24 hours of clindamycin. Pain was controlled with Toradol IV, morphine sulfate IV, and Percocet 5/325 mg q.i.d. p.r.n, with IV pain medication discontinued day before discharge to implement oral pain control. Physical therapy was initiated in the hospital, physical therapy was progressed to transferring with standby assistance prior to his discharge. Vital signs stable, and he remained afebrile during hospital course. Last hemoglobin on 04/05/2019 was 9.9. DVT prophylaxis included ASA 325 mg daily, support stockings, SCDs bilaterally, and ambulation with staff. His stay was extended due to Case Management assisting him with finding assistance at home. A week after his surgery, he stated he had someone available that he could call if he needed help, but this fell through. His stay was extended until a ramp could be installed so he could get into his house. He was discharged with home care services due to nurse availability to follow up and for physical therapy to strengthen and progress physical therapy as directed. DISCHARGE MEDICATIONS: 1. Percocet 5/325 mg 1 to 2 tabs q.6 hours p.r.n. 2. Amlodipine 5 mg daily. 3. Aspirin 325 mg daily. 4. Chlorthalidone 25 mg daily. 5. Clonazepam 1 mg at bedtime. 6. Flovent 50 mcg 1 to 2 puffs daily. 7. Gabapentin 300 mg t.i.d. 8. Ibuprofen 600 mg every 6 hours p.r.n. 9. Lisinopril 40 mg daily. 10.Methotrexate 15 mg weekly. 11.Pravastatin 40 mg at bedtime. 12.Ranitidine 300 mg b.i.d. FOLLOWUP: The patient is scheduled for a postop visit on 04/18/2019 for removal of natali. He is to contact or call [facility] with questions in the interim. He will receive outpatient physical therapy under the direction of home care. Home care to ensure compliance with hip exercises, including hip flexion exercises when standing with his walker, calf raisers, and standing abduction exercises, along with regular walking for strengthening d/t physical deconditioning d/t decreased activity with extended hospitalization. Nursing services per home care to additionally monitor his pain management ( Ibuprofen 600mg routinely every 6 hours, with 650mg Tylenol in between these 6 hours if needed, reserving Percocet for moderate to severe pain, beginning to wean off use of narcotic as this will not be continued past post-op follow up visit), assess bandage, and general nursing assessment as he does not have another individual available for intermittent assistance. MEERA / SULTANA /[id number] BRETT
== END 2019-04-08 17:00 | disposition home health service (06) | DRG 482 ==
LOC: MW.ED 08:49 → MW.MS 10:06 → MERGE 10:06
PROVIDERS: ADMIT Orthopaedic Surgery; ATTEND Orthopaedic Surgery
PROC: 0QS736Z Reposition Left Upper Femur with Intramedullary Internal Fixation Device, Percutaneous Approach (ICD-10-PCS; principal; 2019-03-31)
DX: S72.142A Displaced intertrochanteric fracture of left femur, initial encounter for closed fracture (principal); R50.82 Postprocedural fever; D72.829 Elevated white blood cell count, unspecified; E87.6 Hypokalemia; E78.5 Hyperlipidemia, unspecified; E78.00 Pure hypercholesterolemia, unspecified; I10 Essential (primary) hypertension; F32.9 Major depressive disorder, single episode, unspecified; M19.90 Unspecified osteoarthritis, unspecified site; Z79.899 Other long term (current) drug therapy; Z88.0 Allergy status to penicillin; Z87.891 Personal history of nicotine dependence; W01.10XA Fall on same level from slipping, tripping and stumbling with subsequent striking against unspecified object, initial encounter
CPT/HCPCS: 01230; 36410; 36415; 51702; 71045; 71045-26; 73502-26-LT; 73502-LT; 80053; 80061; 80202; 83036; 83605; 83735; 84100; 85025; 85610; 86850; 86900; 86901; 87040; 93005; 93970; 93970-26; 96374; 96375; 97110-GP; 97116-GP; 97161-GP; 97530-GP; 99283; 99285-25; A9270-GY; C1713; C1769; J0131; J0171; J1170; J1885; J2250; J2270; J2405; J2704; J2795; J3010; J3370; J3490; J7030; J7050; J7120

== ENCOUNTER 2022-05-26 15:03 | Emergency (ER) | payer BC ==
[2022-05-26 16:03] LABS: CORONAVIRUS COVID-19 NAA NEGATIVE (NEGATIVE); INFLUENZA A NAA NEGATIVE (NEGATIVE); INFLUENZA B NAA NEGATIVE (NEGATIVE)
[2022-05-26 16:54] LABS: CARBON DIOXIDE,CO2 28.1 mmol/L (21.0-32.0)
[2022-05-26 18:28] VITALS: BP 125/68; PULSE 76
== END 2022-05-26 18:26 | disposition home or self-care (01) ==
LOC: MW.ED 15:03
DX: R07.89 Other chest pain (principal); R06.02 Shortness of breath; J45.909 Unspecified asthma, uncomplicated; E78.00 Pure hypercholesterolemia, unspecified; I10 Essential (primary) hypertension; Z88.0 Allergy status to penicillin; Z88.1 Allergy status to other antibiotic agents; Z79.899 Other long term (current) drug therapy; Z79.82 Long term (current) use of aspirin; Z20.822 Contact with and (suspected) exposure to COVID-19
CPT/HCPCS: 0240U; 36415; 71045; 80053; 81001; 83735; 83880; 84484; 85025; 93005; 99285; 93010; 99283